=== PATIENT | male | born 1970 | race Caucasian/White ===

== ENCOUNTER 2017-06-14 20:07 | Inpatient (IN) | payer OTHER ==
[~2017-06-14] VITALS: Ht 175.3 cm; Wt 112.5 kg
[~2017-06-14 20:07] MED LIST: ALPR0.25 PO; CIAL5TAB PO; HYDR-2823 PO; IOHEXOL 350 MG/ML 100 ML BTL (for Cath Lab) OTHER ONE
[2017-06-14 20:10] VITALS: RESP 16; O2SAT 99
[2017-06-14 20:12] VITALS: BP 186/118; PULSE 103; RESP 14; TEMP 98.2; O2SAT 96
[2017-06-14 20:18] VITALS: O2SAT 100
[2017-06-14] MEDS ORDERED: HEPARIN SODIUM - IV 10,000 UNITS/10 ML VIAL IV STA (20:20)
[2017-06-14] MEDS ORDERED: NITROGLYCERIN 0.4 MG SL 25 TABS/BTL SL STA (20:20)
[2017-06-14] MEDS ORDERED: ASPIRIN 81 MG CHEW TAB PO STA (20:20)
[2017-06-14] MEDS ORDERED: SODIUM CHLOR 0.9% 1000 ML INJ 1,000 ML IV ONE (20:20)
[2017-06-14] MEDS ORDERED: NITROGLYCERIN-DEXTROSE INJ 250 ML IV SCH ×2 (20:30→22:45)
[2017-06-14] MEDS ORDERED: SODIUM CHLORIDE 0.9% FLUSH 10 ML FLUSH IVF PRN (20:30)
[2017-06-14 20:40] VITALS: BP 155/99; PULSE 111; RESP 18; O2SAT 98
[2017-06-14 20:41] LABS: AUTOMATED NEUTROPHIL # 8.6 TH/MM3 (1.8-7.7); BASOPHIL # 0.1 TH/MM3 (0-0.2); BASOPHIL % 0.8 % (0.0-2.0); EOSINOPHIL # 0.4 TH/MM3 (0-0.4); HEMATOCRIT 44.3 % (39.0-51.0); HEMO FLAGS DIFF FINAL; LYMPHOCYTE # 4.4 TH/MM3 (1.0-4.8); MEAN CELL VOLUME 91.3 FL (80.0-100.0); MEAN CORPUSCULAR HEMOGLOBIN 31.7 PG (27.0-34.0); MEAN CORPUSCULAR HGB CONC 34.7 % (32.0-36.0); MONO % 7.5 % (0.0-8.0); NEUT % 58.7 % (16.0-70.0); PLATELET COUNT 213 TH/MM3 (150-450); RED BLOOD COUNT 4.85 MIL/MM3 (4.50-5.90); RED CELL DISTRIBUTION WIDTH 12.2 % (11.6-17.2); WHITE BLOOD COUNT 14.6 TH/MM3 (4.0-11.0)
--- NOTE | 2017-06-14 20:42 | PD ---
HPI Chief Complaint: Chest Pain Time Seen by Provider: 20:20 Travel History International Travel<30 days: No Contact w/Intl Traveler<30days: No Traveled to known affect area: No History of Present Illness HPI The patient is a 46 year old male who presents to the [facility] emergency department with a history of chest pressure that he reports began 40-50 minutes prior to arrival. The patient reports that the pain feels like a gas bubble that is trapped in his chest. He reports having associated shortness of breath. He reports having an aching sensation that radiates up into the left axilla. He reports having diaphoresis. He denies having any nausea or vomiting. The patient reports that the pain is quite different from when he had a myocardial infarction in 2008. He reports that he had a single stent placed in his RCA at that time. The patient denies taking any antihypertensive medications all that he reports that he has been hypertensive for the last 2 years. He reports that this is related to having side effects to the medications. He denies taking aspirin on a daily basis. He reports that he does take aspirin when necessary back pain. He last took aspirin yesterday. The patient is unsure whether he has any history of hyperlipidemia. The patient denies taking any medications that are prescribed at all. He denies having a primary care physician. He reports that he was last seen by a acute care assistant, Dr. Joseph in the spring of 2015 and at that time had a negative stress test. The patient denies any history of fever, cough, congestion, neck pain, abdominal pain, diarrhea, urinary symptoms, or neurologic symptoms. The patient reports that he has had 4 alcoholic beverages this evening. [facility] Past Medical History Narrative Medical The patient's past medical history is significant for coronary artery disease status post myocardial infarction in 2008 with 1 stent placed, hypertension, acid reflux, anxiety disorder Anxiety: Yes Cardiac Catheterization: Yes Cardiovascular Problems: Yes Chest Pain: Yes Hypertension: Yes Myocardial Infarction: Yes (01/2009) Past Surgical History Narrative Surgical The patient's past surgical history is significant for a cardiac catheterization with stent placement, history of cholecystectomy, appendectomy. Coronary Stent: Yes Social History Alcohol Use: Yes Tobacco Use: No Substance Use: No Allergies-Medications (Allergen,Severity, Reaction): Coded Allergies: No Known Allergies (Unverified , 06/14/17) Reported Meds & Prescriptions Reported Meds & Active Scripts Active No Active Prescriptions or Reported Medications Review of Systems Except as stated in HPI: all other systems reviewed are Neg General / Constitutional: No: Fever Eyes: No: Visual changes HENT: No: Headaches Cardiovascular: Positive: Chest Pain or Discomfort, Diaphoresis, Dyspnea on exertion Respiratory: Positive: Shortness of Breath, No: Cough Gastrointestinal: No: Nausea, Vomiting, Abdominal Pain Genitourinary: No: Dysuria Musculoskeletal: No: Pain Skin: No Rash Neurologic: No: Weakness, Focal Abnormalities, Change in Mentation, Slurred Speech, Sensory Disturbance Psychiatric: No: Depression Endocrine: No: Polydipsia Hematologic/Lymphatic: No: Easy Bruising Physical Exam Narrative General: The patient is a well-developed well-nourished male in no acute distress. Head and Neck exam: Head is normocephalic atraumatic. Eyes: EOMI, pupils are equal round and reactive to light. Nose: Midline septum with pink mucous membranes Mouth: Dentition unremarkable. Moist mucus membranes. Posterior oropharynx is not erythematous. No tonsillar hypertrophy. Uvula midline. Airway patent. Neck: No palpable lymphadenopathy. No nuchal rigidity. No thyromegaly. Cardiovascular: Sinus tachycardia in the 1 teens without murmurs, gallops, or rubs. No pulse deficit to the extremities and simultaneous auscultation and palpation of his radial artery. Lungs: Clear to auscultation bilaterally. No wheezes, rhonchi, or rales. Abdomen: Soft, without tenderness to palpation in all 4 quadrants of the abdomen. No guarding, rebound, or rigidity. Normal bowel sounds are audible. No tenderness on palpation of McBurney's point. Negative Cox's sign. Extremities: No clubbing, cyanosis, or edema. 2+ pulses in all 4 extremities. No calf tenderness on palpation. Back: No costovertebral angle tenderness to palpation. Neurologic Exam: Grossly nonfocal. Skin Exam: No rash noted. Intact skin that is warm and dry. Data Data Last Documented VS Vital Signs Date Time Temp Pulse Resp B/P Pulse Ox O2 Delivery O2 Flow Rate FiO2 06/14/17 20:45 110 14 136/77 99 Nasal Cannula 2 06/14/17 20:12 98.2 Orders Troponin I (06/14/17 20:20) Ckmb (Isoenzyme) Profile (06/14/17 20:20) Complete Blood Count With Diff (06/14/17 20:20) I-Stat Profile (06/14/17 20:20) I-Stat Creatinine (06/14/17 20:20) Calcium (06/14/17 20:20) Magnesium (Mg) (06/14/17 20:20) Prothrombin Time / Inr (Pt) (06/14/17 20:20) Act Partial Throm Time (Ptt) (06/14/17 20:20) B-Type Natriuretic Peptide (06/14/17 20:20) Chest, Single Ap (06/14/17 20:20) Electrocardiogram (06/14/17 20:20) Oxygen Administration (06/14/17 20:20) Iv Access Insert/Monitor (06/14/17 20:20) Oximetry (06/14/17 20:20) Sodium Chlor 0.9% 1000 Ml Inj (Ns 1000 M (06/14/17 20:20) Sodium Chloride 0.9% Flush (Ns Flush) (06/14/17 20:30) Aspirin Chew (Aspirin Chew) (06/14/17 20:20) Nitroglycerin Sl (Nitrostat Sl) (06/14/17 20:20) Nitroglycerin-Dextrose Inj (Nitroglyceri (06/14/17 20:30) Heparin Inj (Heparin Inj) (06/14/17 20:20) Cardiac Catheterization (06/14/17 ) Admit Order (Ed Use Only) (06/14/17 21:14) Labs Laboratory Tests Test 06/14/17 20:20 White Blood Count 14.6 TH/MM3 Red Blood Count 4.85 MIL/MM3 Hemoglobin 15.4 GM/DL Bedside Hemoglobin 15.0 G/DL Hematocrit 44.3 % Bedside Hematocrit 44.0 % Mean Corpuscular Volume 91.3 FL Mean Corpuscular Hemoglobin 31.7 PG Mean Corpuscular Hemoglobin 34.7 % Concent Red Cell Distribution Width 12.2 % Platelet Count 213 TH/MM3 Mean Platelet Volume 7.8 FL Neutrophils (%) (Auto) 58.7 % Lymphocytes (%) (Auto) 30.0 % Monocytes (%) (Auto) 7.5 % Eosinophils (%) (Auto) 3.0 % Basophils (%) (Auto) 0.8 % Neutrophils # (Auto) 8.6 TH/MM3 Lymphocytes # (Auto) 4.4 TH/MM3 Monocytes # (Auto) 1.1 TH/MM3 Eosinophils # (Auto) 0.4 TH/MM3 Basophils # (Auto) 0.1 TH/MM3 CBC Comment DIFF FINAL Differential Comment Prothrombin Time 10.5 SEC Prothromb Time International 1.0 RATIO Ratio Activated Partial 25.8 SEC Thromboplast Time Bedside Sodium 142 MMOL/L Bedside Potassium 3.5 MMOL/L Bedside Chloride 103 MMOL/L Bedside Blood Urea Nitrogen 12 MG/DL Bedside Creatinine 0.9 MG/DL Bedside Glucose 116 MG/DL Calcium Level 8.5 MG/DL Magnesium Level 1.9 MG/DL Total Creatine Kinase 78 U/L Troponin I 0.06 NG/ML B-Type Natriuretic Peptide 17 PG/ML [facility] Medical Decision Making Medical Screen Exam Complete: Yes Emergency Medical Condition: Yes Medical Record Reviewed: Yes Interpretation(s) Last Impressions Chest X-Ray 06/14/172019 Signed Impressions: Service Date/Time: Wednesday, June 14, 2017 20:16 - CONCLUSION: No acute disease. Jean Claude May MD Differential Diagnosis STEMI, versus non-STEMI, versus unstable angina, versus acid reflux, versus anxiety disorder Narrative Course During the course of the patients emergency department visit, the patients history, examination, and differential diagnosis were reviewed with the patient. The patient had IV access obtained and blood work sent for analysis. The patient was placed on a media monitor with oximetry and blood pressure monitoring. An ECG done on arrival shows an inferior STEMI with reciprocal changes, ST segment depression in aVL and 1. A call was placed out to the acute care assistant on-call for the patient's acute care assistant, Dr. Jsoeph. I spoke to Dr. Castellanos at 8:25 PM. The patient's ECGs were reviewed with him. The patient had an initial ECG that showed a STEMI in the inferior leads. The patient reported that his chest pain resolved while he was in the room. A second ECG revealed some improvement in the reciprocal changes in lead 1 and aVL, continued ST segment elevation in lead 3, 2, and aVF. As I was out talking to the acute care assistant, the patient reports that the chest pressure began again. He reports that initially was a 6 out of 10 in severity, now it is a 3 out of 10 in severity. The patient was initially provided aspirin 324 mg by mouth 1, nitroglycerin sublingual times one, nitroglycerin drip was started, heparin was given per protocol. The patients laboratory studies were reviewed and remarkable for an i-STAT with creatinine that reveals a creatinine of 0.9, sodium 142, potassium 3.5, chloride 103, BUN 12, glucose 116, hemoglobin 15. Radiology studies were reviewed and remarkable for no acute cardiopulmonary abnormality. The patient will be taken to the cardiac catheterization lab for further intervention. I accompanied the patient to the cardiac catheterization lab and transferred care over to Dr. Castellanos when he arrived. The patients results were discussed with the patient, including the plan of care. I explained that further testing and/ or monitoring is indicated based on the patients history, examination, and/ or laboratory findings. Therefore, I recommended admission for additional evaluation. The patient expressed understanding and was agreeable with this plan. The patient was admitted to the hospital in guarded condition and sent to a bed under the care of the acute care assistant. Critical Care Narrative Aggregate critical care time was 35 minutes. Time to perform other separately billable procedures was not included in the critical care time. My time did not include minutes spent treating any other patients simultaneously or on activities that did not directly contribute to the patient's treatment. The services I provided to this patient were to treat and/or prevent clinically significant deterioration that could result in: Cardiopulmonary arrest, cardiac arrhythmia, respiratory failure I provided critical care services requiring my management, as noted below: Chart data review, documentation time, medication orders and management, vital sign assessments/reviewing monitor data, ordering and reviewing lab tests, ordering and interpreting/reviewing x-rays and diagnostic studies, care of the patient and discussion of the patient with the admitting physicians. Diagnosis Primary Impression: STEMI (ST elevation myocardial infarction) Qualified Code: I21.3 - ST elevation myocardial infarction (STEMI), unspecified artery Admitting Information Admitting Physician Requests: Admit Scripts No Active Prescriptions or Reported Meds Raquel King MD Jun 14, 2017 20:42
--- NOTE | 2017-06-14 20:43 | RADRPT ---
EXAM DATE/TIME: 06/14/2017 20:16 [place] COMPARISON: No previous studies available for comparison. INDICATIONS : Stemi alert. MEDICAL HISTORY : None. SURGICAL HISTORY : None. ENCOUNTER: Initial ACUITY: 1 day PAIN SCORE: Non-responsive. LOCATION: Bilateral chest FINDINGS: A single view of the chest demonstrates the lungs to be symmetrically aerated without evidence of mas s, infiltrate or effusion. The cardiomediastinal contours are unremarkable. Osseous structures are intact. CONCLUSION: No acute disease. Jean Claude May MD on June 14, 2017 at 20:41 Board Certified Radiologist. This report was verified electronically.
[2017-06-14 20:45] VITALS: BP 136/77; PULSE 110; RESP 14; O2SAT 99
[2017-06-14 20:51] LABS: I-STAT POTASSIUM 3.5 MMOL/L (3.5-4.9)
[2017-06-14 20:54] LABS: APTT (PATIENT) 25.8 SEC (24.3-30.1); PROTHROMBIN TIME - PATIENT 10.5 SEC (9.8-11.6)
[2017-06-14 21:36] LABS: MAGNESIUM 1.9 MG/DL (1.5-2.5)
--- NOTE | 2017-06-14 22:40 | CATHPROC ---
BOLD [facility]ance HIS Report Study Information Study Number Admission Scheduled Start Study Start [id number] Jun 14 2017 8:07PM 06/14/2017 Jun 14 2017 8:54PM [place] Service Cardiac Catheterization Admit Source Facility Department Emergency department [facility] - Physiotherapist'S Assistant Physician and Clinical Staff Initial Moreno Levy Type Soldering Machine Tenderjama Perez RN, Colton Type Soldering Machine TenderGay Guerrier,INTERCELL CONNECTOR PLACER TECH2 Recorder Maicol Almaraz,RODNEY(BS) Scrub Kenneth Guy,RT(R) X-Ray cathlab, cathlab Procedures Performed Procedure Location (Site) Vessel Name Coronary Angiograms LCA Left Coronary Coronary Angiograms RCA Right Coronary IVUS LEFT MAIN ARTERY-(11 Left Coronary Wire insertion Fem Art (right) Femoral Art Equipment Time Carton Wrapper Description Size Mfg Part Number Used/Scraped [id number] 21:25 [employer] WIRE, ASAHI PROWATER 180CM 180CM Used *[id number] WIRE, BALANCE MIDDLEWEIGHT [id number] 21:25 [employer] 190CM Used 190CM *[id number] TRANSDUCER, TRUWAVE [id number] 21:11 [employer]EN SPRINGER * Used W/STOCKCOCK *[id number]-502-10.0- INTRODUCER SET, 21:14 [employer] FR 5 SC-NT-U-SST Used MICROPUNCTURE, STIFFENED *[id number] 534-520T *[id number] [id number] *[id number] 534-617T *[id number] 534-622T *[id number] 670-082-00 *[id number] 534-521T *[id number] PIGTAIL ANG. 145 INFINITI 534-652S CATHETER *[id number] 21:11 [employer] PACK, CCL CUSTOM * Used *[id number] 21:11 [employer] PACER PEN, SKIN DUAL W/ RULER * Used *[id number] 21:38 [employer] 30 WILL INDEFLATOR Used *[id number] PSI-6F-11- 21:16 [employer] SHEATH, FR6.5 PRELUDE 11CM FR 6.5 038ACT Used *[id number] 21:11 [employer] WIRE, 3MMJ .035 180CM 180CM Used *[id number] PROBE COVER, STERILE [id number] 21:11 [employer] * Used ULTRASOUND W/ GEL *[id number] 21:11 NAMIC MANIFOLD, 4 PORT * Used *[id number] 21:11 NAMIC TUBING, HIGH PRESSURE 48" 48" Used *[id number] 21:11 [employer] OMNIPAQUE, 350 MG, 150ML 150ML [id number] Used [id number] 21:11 [employer] BLANKET,WARM AIR CCL * Used *[id number] 21:11 [employer] SHEATH, FR5 TERUMO (10CM) FR 5 [id number] Used CATHETER, [employer]AH [employer] [place] [id number] 21:38 [employer] Used IMAGING *[id number] Equipment Model, Serial, Lot Number and Expiration Data Description Model Number Serial Number Lot Number Expiration Date CATHETER, RAMAH [employer] [place] [id number] 02-26-2019 IMAGING SHEATH, FR6.5 PRELUDE 11CM [id number] 04-28-2020 History: Allergies Allergy Reaction No Known Allergies History: Risk Factors Family History of Hypertension Dyslipidemia Previous ID Previous Heart Failure Premature CAD Yes Yes No Yes No Prior Valve Prior PCI Prior PCIDate Prior CABG Surgery No Yes 01/27/2009 No Cerebrovascular Peripheral Artery Chronic Lung On Dialysis Diabetes Disease Disease Disease No No No No No History: Symptoms/Diagnosis Selection Items Chest pain History: Stress Tests Stress or Imaging Studies Performed No History: Other Disease Selection Items CAD HTN History: ID/CV Data Previous Cath Date 01/27/2009 History: Other Current Smoker No Labs Hgb (g/dl) Hct (%) WBC (l/cumm) Platelets (thousands) 11.60-17.00 35.00-51.00 4.00-11.00 150.00-450.00 15.4 44.3 14.6 213 Creatinine (mg/dl) 0.50-1.30 Not Drawn CPK-MB (ng/ML) 0.50-3.60 Not Drawn Medication Medication Total Dose (Bolus/Oral) Medication Total Dosage/Unit 1% XYLOCAINE 20 mL HEPARIN 6000 units Medications (Bolus/Oral) Medication Time Given Dosage/Unit Administered By Reason 1% XYLOCAINE 06/14/2017 9:12:56 PM 20 mL Moreno Castellanos 20 mL 1% XYLOCAINE given in lab by Moreno Castellanos in Right Groin via Subcutaneous. HEPARIN 06/14/2017 9:27:02 PM 6000 units Colton Perez RN 6000 units HEPARIN given in lab by Colton Perez RN in Left Antecubital via Peripheral IV. Medication (Drip) Medication Time Given Dosage/Unit Concentration/Unit Diluent (ml) Solution NITROGLYCERIN DRIP 06/14/2017 8:57:29 PM 10 mcg/min 50 mg 250 D5W Patient arrived on 10 mcg/min NITROGLYCERIN DRIP given by beatrice barron in Left Antecubital via Pe ripheral IV. Pump/Drip Flow = 3 ml/hr using D5W with a concentration of 50 mg in 250 ml. Ordered by Moreno Castellanos. NITROGLYCERIN DRIP 06/14/2017 10:11:31 PM 33.333 mcg/min 50 mg 250 D5W 33.333 mcg/min NITROGLYCERIN DRIP given in lab by Colton Perez RN in Left Antecubital via Peripheral IV. Pump/Drip Flow = 10 ml/hr using D5W with a concentration of 50 mg in 250 ml. Ordered by Moreno Castellanos. Initial Case Assessment Cardiovascular HR Rhythm NIBP Chest Pain 105 stach 129/99 0 Edema Present Skin color Skin None Normal Warm Dry Circulatory - Right Pulses Dorsalis Pedis Femoral 3 3 Scale (0,1,2,3,4,d) Circulatory - Left Pulses Dorsalis Pedis Femoral 3 3 Scale (0,1,2,3,4,d) Neurological State Oriented to time-place- Alert Moves all extremities person Respiration - General Respiration Rate SpO2 (%) O2 (lpm) (B/min) 12 99 2 Final Case Assessment Cardiovascular HR Rhythm NIBP Chest Pain 103 stach 150/88 0 Edema Present Skin color Skin None Normal Warm Dry Circulatory - Right Pulses Dorsalis Pedis Femoral 3 3 Scale (0,1,2,3,4,d) Circulatory - Left Pulses Dorsalis Pedis Femoral 3 3 Scale (0,1,2,3,4,d) Neurological State Oriented to time-place- Alert Moves all extremities person Respiration - General Respiration Rate SpO2 (%) O2 (lpm) (B/min) 12 99 2 Chronological Log Time Study Chronological Log 20:54:08 Emergency Room notified that Physiotherapist'S Assistant is ready. 20:57:17 Patient arrived via Bed. 20:57:17 Patient Name, D.O.B, / Armband Verified By R.N. 20:57:18 Consent signed by the physician and the patient and verified by the Physiotherapist'S Assistant staff. 20:57:19 Pre-op and post- op instructions given; patient acknowledges understanding of instructions. 20:57:19 Verbal Stimulation=2 Physical Stimulation=2 Airway=2 Respiration=2 TOTAL=8. (0=absent, 1=li mited, 2=present) 20:57:20 Presedation assessment performed by Physiotherapist'S Assistant RN. 20:57:20 Immediate Presedation assesment performed by physician. 20:57:21 Patient has been NPO for More than 6Hrs. 20:57:21 Skin Breakdown- none per patient 20:57:22 Patient Warmer Placed on the Table. 20:57:25 Disposable Defibrillator Pads Placed On Patient. 20:57:26 Praful Prominences Protected 20:57:26 A # 18 IV was noted in the Antecubital (right). Grade = 0 20:57:28 A # 20 IV was noted in the Antecubital (left). Grade = 0 Patient arrived on 10 mcg/min NITROGLYCERIN DRIP given by beatrice barron in Left Antecubital via Peripheral IV. 20:57:29 Pump/Drip Flow = 3 ml/hr using D5W with a concentration of 50 mg in 250 ml. Ordered by Moreno Castellanos. 20:57:29 History and physical on the chart or being dictated. Vitals capture started with the following parameters, Patient=Adult, Interval=5 min, Initial Pr gjgwjy=965 mmHg, 21:03:10 Deflation Rate=5 mmHg 21:03:27 Reference ECG taken 21:03:44 YP=348 bpm, NZHX=975/99 mmhg, SpO2=99 %, Resp=16 B/min, Pain=0, Sharee=10, Lainez=2 Assessment: Initial Case, ER=916 BPM, Rhythm=stach, KSKJ=849/99 mmhg, Chest Pain=0, Edema=None, Color=Normal, Skin = Warm, Dry Right Pulses: Rodrigo Ped=3, Femoral=3 21:05:42 Left Pulses: Rodrigo Ped=3, Femoral=3 Neurological: State=Alert, Ox3, ARREDONDO Respiration: Resp=12 B/min, SpO2=99 %, O2=2 lpm 21:06:30 Bilateral groins prepped with 2% chlorhexidine, and with a 3 min. waiting time. 21:09:18 OQ=477 bpm, JTHO=010/89 mmhg, SpO2=92.0 %, Resp=15 B/min, Pain=0, Sharee=10, Lainez=2 21:09:47 Pressure channel 1 zeroed. 21:10:17 MD arrived. 21:10:49 Contrast Scanned 21:10:50 Immediate Presedation assesment performed by physician. Time Out. Correct patient, correct procedure,correct physician, ,power injector not loaded with contrast with surgical 21:11:57 team present. Time Out Concurred by , individual staff in procedure 21:12:22 Case Start 21:12:56 20 mL 1% XYLOCAINE given in lab by Moreno Castellanos in Right Groin via Subcutaneous. 21:13:46 DG=104 bpm, IRFV=129/91 mmhg, SpO2=98.0 %, Resp=16 B/min, Pain=0, Sharee=10, Lainez=2 21:15:43 Access site was Right Femoral Artery. A INTRODUCER SET, MICROPUNCTURE, STIFFENED FR 5 was advanced into the Fem Art (right) using the 21:15:48 Percutaneous technique. A SHEATH, FR6.5 PRELUDE 11CM FR 6.5 was exchanged in the Fem Art (right). This was necessary in order to 21:15:53 accomodate a larger catheter. 21:17:34 An injection in the Fem Art (right) was made through the SHEATH, FR6.5 PRELUDE 11CM FR 6.5. A JL 4.0 INFINITI CATHETER FR 5 was advanced over a wire. OMNIPAQUE, 350 MG, 150ML 150ML was us ed for 21:18:02 injections. 21:18:51 AX=711 bpm, BRAR=420/86 mmhg, SpO2=96.0 %, Resp=18 B/min, Pain=0, Sharee=10, Lainez=2 Recorded Pressure: Ao, OO=767, Condition=Condition 1 21:19:15 (Aorta) Ao 132/88/109 21:20:09 The LCA was injected and visualized at various angles. OMNIPAQUE, 350 MG, 150ML 150ML used . After removing the current catheter a JR 4.0 GUIDE CATHETER FR 6 was advanced over a WIRE, 3MMJ .035 180CM 21:21:58 180CM. 21:23:50 JM=489 bpm, LRYV=477/84 mmhg, SpO2=98.0 %, Resp=17 B/min 21:23:51 The RCA was injected and visualized at various angles. OMNIPAQUE, 350 MG, 150ML 150ML used . 21:27:02 6000 units HEPARIN given in lab by Colton Perez RN in Left Antecubital via Peripheral IV. After removing the current catheter a JL 5.0 INFINITI CATHETER FR 6 was advanced over a WIRE, 3 MMJ .035 180CM 21:28:41 180CM. 21:29:14 YF=350 bpm, ZXSQ=218/87 mmhg, SpO2=98.0 %, Resp=18 B/min, Pain=0, Sharee=10, Lainez=2 After removing the current catheter a JL 4.5 INFINITI CATHETER FR 6 was advanced over a WIRE, 3 MMJ .035 180CM 21:31:36 180CM. 21:33:46 CZ=956 bpm, PIWV=811/93 mmhg, SpO2=98.0 %, Resp=16 B/min, Pain=0, Sharee=10, Lainez=2 21:35:15 The LCA was injected and visualized at various angles. OMNIPAQUE, 350 MG, 150ML 150ML used . After removing the current catheter a JL 4.5 GUIDE CATHETER FR 6 was advanced over a WIRE, 3MMJ .035 180CM 21:36:36 180CM. 21:38:47 GK=825 bpm, ECMG=292/99 mmhg, SpO2=97.0 %, Resp=14 B/min, Pain=0, Sharee=10, Lainez=2 21:40:27 A WIRE, BALANCE MIDDLEWEIGHT 190CM 190CM was inserted via Fem Art (right). 21:41:13 Interventional wire has crossed the lesion 21:43:48 VL=784 bpm, GIOE=610/84 mmhg, SpO2=97.0 %, Resp=11 B/min, Pain=0, Sharee=10, Lainez=2 21:43:56 An CATHETER, [employer] [place] [employer]AG[employer] was advanced through the lesion. Images saved on to IVUS hard drive 21:45:47 IVUS in progress using CATHETER, RAMAH [employer] [place] IMAGING 21:48:45 ER=041 bpm, ITEB=223/91 mmhg, SpO2=95.0 %, Resp=17 B/min, Pain=0, Sharee=10, Lainez=2 21:53:53 ZV=566 bpm, SCAI=242/78 mmhg, SpO2=97.0 %, Resp=12 B/min, Pain=0, Sharee=10, Lainez=2 21:58:10 IVUS catheter removed 21:58:33 Activated Clotting Time Drawn 21:58:48 LQ=590 bpm, AFCW=260/94 mmhg, SpO2=97.0 %, Resp=20 B/min, Pain=0, Sharee=10, Lainez=2 21:59:20 Wire removed After removing the current catheter a PIGTAIL ANG. 145 INFINITI CATHETER FR 6 was advanced over a WIRE, 3MMJ 22:00:47 .035 180CM 180CM. 22:02:50 ACT (Normal Range 90-180) = 285 Recorded Pressure: LV, IT=964, Condition=Condition 1 22:02:56 (Left Ventricle) LV 129/1/6 Recorded Pressure: LV, Ao, VI=048, Condition=Condition 1 22:03:27 (Left Ventricle) LV 129/0/6, (Aorta) Ao 129/86/107 22:03:51 VY=387 bpm, GNNX=080/88 mmhg, SpO2=97.0 %, Resp=20 B/min, Pain=0, Sharee=10, Lainez=2 22:05:31 Catheter was removed 22:09:18 UR=351 bpm, LUYA=121/106 mmhg, SpO2=96.0 %, Resp=13 B/min, Pain=0, Sharee=10, Lainez=2 22:10:22 Dr. Castellanos discussing IABP with patient. Patient refuses IABP placement. 22:11:21 Activated Clotting Time Drawn 33.333 mcg/min NITROGLYCERIN DRIP given in lab by Colton Perez RN in Left Antecubital via Perip heral IV. Pump/Drip 22:11:31 Flow = 10 ml/hr using D5W with a concentration of 50 mg in 250 ml. Ordered by Moreno Castellanos . 22:13:49 Case End 22:13:53 YS=790 bpm, GCCY=323/88 mmhg, Resp=12 B/min 22:13:55 In the Fem Art (right) the SHEATH, FR6.5 PRELUDE 11CM FR 6.[address] by Kenneth Guan RT(R). Assessment: Final Case, IT=506 BPM, Rhythm=stach, RCRH=479/88 mmhg, Chest Pain=0, Edema=None, Color=Normal, Skin = Warm, Dry Right Pulses: Rodrigo Ped=3, Femoral=3 22:14:07 Left Pulses: Rodrigo Ped=3, Femoral=3 Neurological: State=Alert, Ox3, ARREDONDO Respiration: Resp=12 B/min, SpO2=99 %, O2=2 lpm 22:14:24 Sterile dressing applied to site 22:14:25 No case complications noted. :: Cine recording checked. 22:14:29 Bedside Report will be given. 22:14:38 Contrast Scanned 22:19:23 WP=049 bpm, MBJI=361/91 mmhg, SpO2=94.0 %, Resp=8 B/min, Pain=0, Sharee=10, Lainez=2 22:23:51 PI=365 bpm, FPCA=735/89 mmhg, SpO2=97.0 %, Resp=10 B/min, Pain=0, Sharee=10, Lainez=2 22:27:33 Vitals capture stopped. 22:27:34 [facility] moved to [facility] End Study - Contrast Media Used In Study Contrast Total Opened (mL) Total Used (mL) Total Wasted (mL) Omnipaque 100 100 0 End Study - Radiation Exposure Fluoro Time (minutes) 13.1 End Study - Patient Disposition Complications Transferred To Interventional Outcome No Critical Care Bed No attempt made
[2017-06-14] MEDS ORDERED: oxyCODONE/ACETAMINOPHEN 5 MG/325 MG TAB PO PRN (22:45)
[2017-06-14] MEDS ORDERED: ACETAMINOPHEN 325 MG TAB PO PRN (22:45)
[2017-06-14] MEDS ORDERED: ONDANSETRON HCL 4 MG/2 ML VIAL IV PRN (22:45)
[2017-06-14] MEDS ORDERED: oxyCODONE/ACETAMINOPHEN 10 MG/325 MG TAB PO PRN (22:45)
[2017-06-14 23:00] VITALS: PULSE 105
[2017-06-14] MEDS ORDERED: HEPARIN-D5W INJ 250 ML IV SCH (23:00)
--- NOTE | 2017-06-14 23:40 | PD.CONS ---
[facility] Service Critical Care Medicine Consult Requested By Primary Care Physician No Primary Care Physician History of Present Illness 46 year old male presents with a history of chest pressure that he reports began 40-50 minutes prior to arrival. He reports having associated shortness of breath. He reports having an aching sensation that radiates up into the left axilla. And he also reports having diaphoresis. He denies having any nausea or vomiting. He has had a single stent placed in his RCA at 2008. He was emergently taken to cardiac catheter lab, where he was found to have a left main disease as well as multiple lesions of the RCA, Dr. Woods offered IABP however patient refused. Patient agreed to undergo CABG procedure this week. Review of Systems Constitutional: COMPLAINS OF: Diaphoretic episodes, DENIES: Fatigue, Fever, Weight gain, Weight loss, Chills, Dizziness, Change in appetite, Night Sweats Endocrine: DENIES: Heat/cold intolerance, Polydipsia, Polyuria, Polyphagia Eyes: DENIES: Blurred vision, Diplopia, Eye inflammation, Eye pain, Vision loss , Photosensitivity, Double Vision Ears, nose, mouth, throat: DENIES: Tinnitus, Hearing loss, Vertigo, Nasal discharge, Oral lesions, Throat pain, Hoarseness, Ear Pain, Running Nose, Epistaxis, Sinus Pain, Toothache, Odynophagia Respiratory: COMPLAINS OF: Shortness of breath, DENIES: Apneas, Cough, Snoring , Wheezing, Hemoptysis, Sputum production Cardiovascular: COMPLAINS OF: Chest pain, DENIES: Palpitations, Syncope, Dyspnea on Exertion, PND, Lower Extremity Edema, Orthopnea, Claudication Gastrointestinal: DENIES: Abdominal pain, Black stools, Bloody stools, Constipation, Diarrhea, Nausea, Vomiting, Difficulty Swallowing, Anorexia Genitourinary: DENIES: Sexual dysfunction, Urinary frequency, Urinary incontinence, Urgency, Hematuria, Dysuria, Nocturia, Penile Discharge, Testicular Pain, Testicular Swelling Musculoskeletal: DENIES: Joint pain, Muscle aches, Stiffness, Joint Swelling, Back pain, Neck pain Integumentary: DENIES: Abnormal pigmentation, Nail changes, Pruritus, Rash Hematologic/lymphatic: DENIES: Bruising, Lymphadenopathy Immunologic/allergic: DENIES: Eczema, Urticaria Neurologic: DENIES: Abnormal gait, Headache, Localized weakness, Paresthesias, Seizures, Speech Problems, Tremor, Poor Balance Psychiatric: DENIES: Anxiety, Confusion, Mood changes, Depression, Hallucinations, Agitation, Suicidal Ideation, Homicidal Ideation, Delusions ROS Coronary artery disease status post myocardial infarction in 2008 with 1 stent placed, Hypertension, Gastroesophageal acid reflux disease, Anxiety disorder Past Family Social History Allergies: Coded Allergies: No Known Allergies (Unverified , 06/14/17) Past Medical History Coronary artery disease status post myocardial infarction in 2008 with 1 stent placed in RCA Hypertension Gastroesophageal reflux disease Anxiety disorder Past Surgical History Coronary stent placement in 2008 Reported Medications Reported Meds & Active Scripts Active No Active Prescriptions or Reported Medications Active Ordered Medications Current Medications Medications (Trade) Dose Ordered Sig/Josefina Route PRN Reason Start Time Stop Time Status Last Admin Dose Admin Sodium Chloride 2 ml 2 ml UNSCH PRN IVF FLUSH AFTER USING IV ACCESS 06/14/17 20:30 Nitroglycerin/ Dextrose (Nitroglycerin-Dextrose Inj) 250 ml @ 0 mls/hr TITRATE IV 06/14/17 20:30 06/14/17 20:37 Acetaminophen (Tylenol) 325 mg Q4H PRN PO PAIN SCALE 1 TO 2 06/14/17 22:45 Oxycodone/ Acetaminophen (Percocet 5-325 Mg) 1 tab Q4H PRN PO PAIN SCALE 3 TO 5 06/14/17 22:45 Oxycodone/ Acetaminophen (Percocet 10-325 Mg) 1 tab Q4H PRN PO PAIN SCALE 6 TO 10 06/14/17 22:45 Aspirin 81 mg 81 mg DAILY PO 06/15/17 09:00 Nitroglycerin/ Dextrose (Nitroglycerin-Dextrose Inj) 250 ml @ 0 mls/hr TITRATE IV 06/14/17 22:45 Ondansetron HCl (Zofran Inj) 4 mg Q4H PRN IV NAUSEA 06/14/17 22:45 Metoprolol Tartrate (Lopressor) 12.5 mg BID PO 06/15/17 09:00 Heparin Sodium (Porcine) (Heparin Inj) 5,000 units UNSCH PRN IV APTT LESS THAN 25 06/15/17 05:00 Heparin Sodium (Porcine) 2500 units 2,500 units UNSCH PRN IV APTT 25 TO 39 06/15/17 05:00 Heparin Sodium/ Dextrose (Heparin-D5W Inj) 250 ml @ 0 mls/hr TITRATE IV 06/14/17 23:00 06/14/17 23:56 Atorvastatin Calcium (Lipitor) 80 mg HS PO 06/15/17 21:00 Alprazolam (Xanax) 0.5 mg Q6H PRN PO anxiety 06/14/17 23:45 06/15/17 00:08 Family History No family history of early cancer Social History He drinks alcohol socially He denies illicit drug or tobacco abuse Physical Exam Vital Signs Vital Signs Date Time Temp Pulse Resp B/P Pulse Ox O2 Delivery O2 Flow Rate FiO2 06/14/17 20:45 110 14 136/77 99 Nasal Cannula 2 06/14/17 20:40 111 18 155/99 98 Nasal Cannula 2 06/14/17 20:18 100 Nasal Cannula 2.00 06/14/17 20:18 100 2.00 06/14/17 20:12 98.2 103 14 186/118 96 06/14/17 20:10 99 Nasal Cannula 2 06/14/17 20:10 16 99 Nasal Cannula 2 06/14/17 20:10 99 Nasal Cannula 2 Physical Exam GENERAL: Well-nourished, well-developed patient. SKIN: Warm and dry. HEAD: Normocephalic. EYES: No scleral icterus. No injection or drainage. NECK: Supple, trachea midline. No JVD or lymphadenopathy. CARDIOVASCULAR: Regular rate and rhythm without murmurs, gallops, or rubs. RESPIRATORY: Breath sounds equal bilaterally. No accessory muscle use. GASTROINTESTINAL: Abdomen soft, non-tender, nondistended. MUSCULOSKELETAL: No cyanosis, or edema. BACK: Nontender without obvious deformity. No CVA tenderness. EXTREMITIES: No clubbing cyanosis or edema Laboratory Laboratory Tests Test 06/14/17 20:20 White Blood Count 14.6 Red Blood Count 4.85 Hemoglobin 15.4 Bedside Hemoglobin 15.0 Hematocrit 44.3 Bedside Hematocrit 44.0 Mean Corpuscular Volume 91.3 Mean Corpuscular Hemoglobin 31.7 Mean Corpuscular Hemoglobin 34.7 Concent Red Cell Distribution Width 12.2 Platelet Count 213 Mean Platelet Volume 7.8 Neutrophils (%) (Auto) 58.7 Lymphocytes (%) (Auto) 30.0 Monocytes (%) (Auto) 7.5 Eosinophils (%) (Auto) 3.0 Basophils (%) (Auto) 0.8 Neutrophils # (Auto) 8.6 Lymphocytes # (Auto) 4.4 Monocytes # (Auto) 1.1 Eosinophils # (Auto) 0.4 Basophils # (Auto) 0.1 CBC Comment DIFF FINAL Differential Comment Prothrombin Time 10.5 Prothromb Time International 1.0 Ratio Activated Partial 25.8 Thromboplast Time Bedside Sodium 142 Bedside Potassium 3.5 Bedside Chloride 103 Bedside Blood Urea Nitrogen 12 Bedside Creatinine 0.9 Bedside Glucose 116 Calcium Level 8.5 Magnesium Level 1.9 Total Creatine Kinase 78 Troponin I 0.06 B-Type Natriuretic Peptide 17 Result Diagram: 06/14/172019 Imaging Last 24 hours Impressions Chest X-Ray 06/14/172019 Signed Impressions: Service Date/Time: Wednesday, June 14, 2017 20:16 - CONCLUSION: No acute disease. Jean Claude May MD Assessment and Plan Assessment and Plan STEMI - Status post emergent cardiac Catheterization - Nitroglycerin drip - Aspirin - Atorvastatin - Metoprolol - Heparin drip - CABG this week - Management per Dr. Woods - cardiology Anxiety disorder - Xanax when necessary per home regimen DVT GI prophylaxis - Heparin drip, Pepcid - Teds and SCDs Critical Care: The total critical care time was 35 minutes. Time to perform other separately billable procedures was not included in the critical care time. Dev Arroyo MD Jun 14, 2017 23:40
[2017-06-14] MEDS ORDERED: ALPRAZolam 0.25 MG TAB PO PRN (23:45)
[2017-06-15] VITALS (13 sets, daily range): BP systolic 120–162; BP diastolic 59–98; PULSE 70–102; RESP 18–23; TEMP 97.7–98.6; O2SAT 95–100
[2017-06-15] MEDS: ALPRAZolam 0.5 MG TAB PO PRN ×2 (00:08→22:47)
[2017-06-15] MEDS ORDERED: HEPARIN SODIUM - IV 10,000 UNITS/10 ML VIAL IV PRN ×2 (05:00)
[2017-06-15 06:31] LABS: AUTOMATED NEUTROPHIL # 5.5 TH/MM3 (1.8-7.7); BASOPHIL # 0.1 TH/MM3 (0-0.2); BASOPHIL % 0.6 % (0.0-2.0); EOSINOPHIL # 0.3 TH/MM3 (0-0.4); EOSINOPHIL % 3.3 % (0.0-4.0); HEMATOCRIT 38.8 % (39.0-51.0); HEMO FLAGS DIFF FINAL; LYMPH % 29.6 % (9.0-44.0); LYMPHOCYTE # 2.7 TH/MM3 (1.0-4.8); MEAN CELL VOLUME 90.6 FL (80.0-100.0); MEAN CORPUSCULAR HEMOGLOBIN 32.2 PG (27.0-34.0); MEAN CORPUSCULAR HGB CONC 35.6 % (32.0-36.0); MONO % 6.3 % (0.0-8.0); NEUT % 60.2 % (16.0-70.0); PLATELET COUNT 166 TH/MM3 (150-450); RED BLOOD COUNT 4.28 MIL/MM3 (4.50-5.90); RED CELL DISTRIBUTION WIDTH 12.7 % (11.6-17.2); WHITE BLOOD COUNT 9.1 TH/MM3 (4.0-11.0)
[2017-06-15 07:01] LABS: BICARBONATE 27.2 MEQ/L (21.0-32.0); POTASSIUM 3.8 MEQ/L (3.5-5.1)
--- NOTE | 2017-06-15 07:59 | MH ---
cc: MORENO BRYAN DO DATE OF ADMISSION: 06/14/2017 REASON FOR ADMISSION STEMI Alert. HISTORY OF PRESENT ILLNESS Vazquez Duvall is a pleasant 46-year-old male who presented to [facility] Emergency Room with a history of chest pain beginning 40-50 minutes prior to arrival on June 14, 2017. He states that he was shooting pool and having a few drinks and he started feeling a gas bubble that felt trapped in his chest. He started getting somewhat short of breath with this. The pain was an aching sensation under his left axilla. He was also mildly diaphoretic with this. He denies nausea or vomiting. The patient previously had a myocardial infarction in 2008 and states that this pain is definitely different as then he had significant chest pain. Per the patient, he has a history of hypertension and coronary artery disease but states that he does not take any medications at this time. He was recently seen by my partner, Dr. Rodriguez, and underwent stress testing in 2016 which was negative. PAST MEDICAL HISTORY 1. Coronary artery disease with myocardial infarction (2008). 2. Hypertension. 3. Gastroesophageal reflux disease. 4. Anxiety. 5. Hypertension. PAST SURGICAL HISTORY 1. Cardiac catheterization (2008) with unknown coronary anatomy as no report is available at this hospital. 2. Cholecystectomy. 3. Appendectomy. ALLERGIES No known drug allergies. MEDICATIONS Denies. FAMILY HISTORY Denies premature coronary artery disease or sudden cardiac within the family. SOCIAL HISTORY The patient admits to drinking socially. He had four drinks tonight before arriving to the emergency room. He denies tobacco or drug abuse. REVIEW OF SYSTEMS 14-systems were reviewed including osteopathic pertinent positives and negatives above, otherwise negative. PHYSICAL EXAMINATION VITAL SIGNS: Temperature 98.2, heart rate 100, blood pressure 186/118, respirations 16, pulse ox 99% on 2 liters. IN GENERAL: The patient appears well, in no acute distress, alert, awake and oriented x 3. HEENT: Extraocular muscles intact. Mucous membranes moist. NECK: Supple. No JVD at 45 degrees. No carotid bruits heard bilaterally. Carotid upstroke is brisk in nature. HEART: Regular rhythm. Mildly tachycardiac. No murmurs, gallops or rubs are noted. LUNGS: Clear to auscultation bilaterally. No wheezes, rales or rhonchi. ABDOMEN: Soft, nontender, nondistended. No organomegaly noted. EXTREMITIES: No clubbing, cyanosis or edema. Femoral and distal pulses intact bilaterally. NEUROLOGICALLY: No focal deficits. SKIN: Warm, dry and intact. OSTEOPATHICALLY: Mild lordosis. No kyphoscoliosis or paraspinal tender points. LABORATORY FINDINGS Hemoglobin 15.4, hematocrit 44.3, platelets 213. Potassium 3.5, BUN 12, creatinine 0.9. Troponin 0.06. BNP 17. ELECTROCARDIOGRAM (June 14, 2017 at the 20:14) sinus tachycardia, ST elevations inferiorly with Q-waves consistent with infarction. ELECTROCARDIOGRAM (June 14, 2017 at 2021) Sinus tachycardia, mild ST elevations inferiorly with Q-waves. Compared to previous tracing, ST elevations have decreased back towards baseline. IMPRESSION 1. Acute inferior STEMI. 2. History of coronary artery disease with myocardial infarction (2008). 3. History of hypertension. 4. History of anxiety. RECOMMENDATIONS 1. Mr. Duvall is presenting with EKG changes consistent with an acute inferior ST-elevation myocardial infarction. Repeat EKG shows a decrease in the amount of ST elevation and the patient's chest pain has since decreased. 2. As he still is having some chest pain, he will be taken to the cathode maker for coronary visualization. 3. Further recommendations will be made after coronary visualization. Thank you for allowing me to see Vazquez Duvall. If there are any questions, please do not hesitate to call. Moreno Bryan DO VGP/SSB /11:12 PM /7:48 AM [facility]
[2017-06-15] MEDS: ASPIRIN 81 MG CHEW TAB PO SCH (08:15)
[2017-06-15] MEDS: METOPROLOL TARTRATE 25 MG TAB PO SCH ×2 (08:15→21:22)
--- NOTE | 2017-06-15 08:51 | MA ---
cc: MORENO BRYAN DO DATE OF PROCEDURE June 14, 2017 PROCEDURE Left heart catheterization, coronary angiogram, IVUS left main (4.1 mm2). PREPROCEDURE DIAGNOSES Acute anterior STEMI. Chest pain consistent with coronary insufficiency. POSTPROCEDURE DIAGNOSIS Multivessel coronary artery disease with left main disease. MEDICATIONS Heparin 6000 units. CONTRAST USED 100 cc. Fluoroscopy 13.1 minutes. PROCEDURAL SUMMARY Vazquez Duvall is a pleasant 46-year-old male who presented to [facility] Emergency Room due to pain under his armpit. He was out playing pool and drinking at the time and had around four drinks and started noticing the pain. It is different than his previous myocardial infarction in 2008. On arrival he was found to have elevations in his ST segments in the inferior leads. The chest pain started to go away, from a 6/10 to a 2/10 and repeat EKG still showed mild ST elevations in the inferior leads, although they had decreased immensely. It was felt that because of this he should undergo cardiac catheterization. On my arrival to the [employer] [facility], the patient states that he is chest pain-free on a heparin drip and nitro drip but I felt we still should define his coronary anatomy. The risks, benefits and alternatives were explained to him and he consents as such. He was prepped in the usual sterile fashion. The right femoral artery was accessed using a modified Seldinger technique and placement of a 6-Cymraes sheath. This was easily aspirated and flushed. A JL-4 catheter was advanced over a J-wire to the ascending aorta but was too small for selective angiography of the left coronary system. At this time the JL-4 was exchanged for a JR-4 guide which was used for selective angiography of the right coronary system. At this time it appears that all vessels contained within the right coronary were patent. As he does have significant RCA disease and recently had a stress test which was negative in January, there was concern for multivessel disease. As the patient was chest pain-free, I felt that it was prudent to define his left coronary anatomy to make sure that he did not have multivessel disease and consideration of coronary artery bypass grafting. A JR-4 guide was exchanged for a JL-5 catheter. The JL-5 catheter was unable to be placed into the left main without causing significant dampening and ventricularization of pressures. The JL-5 was then exchanged for a JL-4.5 which was more coaxial with the left main without adelina the catheter into the vessel but there was still dampening. I was able to remove the catheter from the ostium of the vessel and still get adequate shots. There was concern for significant left main disease and so I felt that this should be assessed via IVUS. The patient was given heparin as an additional an anticoagulant. A JL-4.5 catheter was exchanged for a JL-4.5 guide. A BMW wire was advanced into the distal LAD. IVUS catheter was advanced and upon pullback recordings were taken. The IVUS catheter was made sure to pull back into the aorta and then slightly into the left main to make sure that we had ostial measurements. In reviewing this, the ostium of the left main measures out to be an area of 4.1 mm2 which is consistent with significant left main disease. IVUS catheter and BMW were removed. A JL-4 guide was then exchanged for a pigtail catheter which was used to measure his LVEDP which was 6. At this time I had planned on placing an intraaortic balloon pump as he did come in with chest pain, ST elevations and significant disease with his RCA and left main. The patient was adamant that he did not want a balloon pump. He was of sound mind. We discussed this, both the risks, benefits and alternatives and he understands. He is currently chest pain-free, hemodynamically and electrically stable and so he will continue on a heparin drip and nitro drip without a balloon pump. 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 FINDINGS Left main 70% ostial disease. IVUS area of 4.1 mm2. LAD - Proximally diffuse 50% disease. Distally mild luminal irregularities. It gives off one diagonal which is overall small with no significant disease. RAMUS - A small vessel with no significant disease. LEFT CIRCUMFLEX - Normal sized vessel with 30% disease proximally. It gives off three major obtuse marginals with 20% diffuse disease. RCA - A normal-size vessel with a lesion of 70% in the midportion. In the [id number] portion there appears to be his stent which appears patent but distal of this he has tandem lesions of 80-90%. The second of these lesions coincide with the takeoff of the PDA which has a 99% lesion. Left ventricular end-diastolic pressure is 6. IMPRESSIONS 1. Acute inferior ST-elevation myocardial infarction with no occluded vessels noted on cardiac catheterization. 2. Multivessel coronary artery disease including significant left main disease (IVUS area of 4.1 mm2), and multiple lesions in his RCA. 3. History of coronary artery disease. 4. History of hypertension 5. Questionable alcohol use. RECOMMENDATIONS 1. Mr. Duvall presented with ST elevations in the inferior lead and he does have significant disease in his RCA, but there are no occluded vessels. 2. There was concern for possible multivessel disease as he had a recent stress test which was negative which does not appear to correlate with his anatomy and his RCA. Because of this he was found to have left main disease. My recommendation is consideration of coronary artery bypass grafting and he will be seen by Dr. Deshpande in the morning. 3. I had originally planned to place an intraaortic balloon pump but the patient, of sound mind, decided that he would not want that. He is currently hemodynamically electrically stable with no chest pain. We will continue him on a heparin drip and nitro drip at this time. My other concern is that, per his , he may drink more than what he eludes to and if he has any withdrawal I would prefer if he did not have a balloon pump at that time. 4. We will continue a heparin drip and nitroglycerin drip at this time. 5. We will check a 2-D echo to look at his overall left ventricular function, cardiac structure and possible valvopathies. 6. Further recommendations after CT surgery evaluation. Thank you for allowing me to see Vazquez Duvall. If there are any questions, please do not hesitate to call. Moreno Bryan DO VGP/SSB /11:23 PM /8:34 AM [facility]
[2017-06-15] MEDS ORDERED: ceFAZolin 2 GM PREMIX 50 ML IV SCH (10:30)
[2017-06-15] MEDS ORDERED: SODIUM CHLORIDE 0.9% FLUSH 10 ML FLUSH IV FLUSH PRN (10:30)
[2017-06-15] MEDS ORDERED: PAPAVERINE INJ 60 MG, NITROGLYCERIN INJ 100 MCG, DILTIAZEM INJ 100 MG in SODIUM CHLORID... IRRIGATION SCH (10:30)
[2017-06-15] MEDS ORDERED: INSULIN REGULAR (IV INFUSION) 100 UNITS in SODIUM CHLORIDE 0.9% INJ 100 ML IV SCH (10:30)
[2017-06-15] MEDS ORDERED: CHLORHEXIDINE GLUCONATE 4% SOLN 120 ML BTL TOPICAL SCH (10:30)
[2017-06-15] MEDS ORDERED: METOPROLOL TARTRATE 25 MG TAB PO SCH (10:30)
[2017-06-15] MEDS ORDERED: CEFAZOLIN INJ 500 MG in SODIUM CHLORIDE 0.9% IRR BTL 500 ML IRRIGATION SCH (10:30)
--- NOTE | 2017-06-15 11:49 | PD.CARD.PN ---
Subjective Subjective Remarks Doing well, no events overnight No chest pain, no shortness of breath Objective Medications Current Medications Medications (Trade) Dose Ordered Sig/Josefina Route Start Time Stop Time Status Last Admin (Nitroglycerin-Dextrose Inj) 250 ml @ 0 mls/hr TITRATE IV 06/14/17 20:30 06/14/17 20:37 (Tylenol) 325 mg Q4H PRN PO 06/14/17 22:45 (Percocet 5-325 Mg) 1 tab Q4H PRN PO 06/14/17 22:45 (Percocet 10-325 Mg) 1 tab Q4H PRN PO 06/14/17 22:45 Aspirin 81 mg 81 mg DAILY PO 06/15/17 09:00 06/15/17 08:15 (Nitroglycerin-Dextrose Inj) 250 ml @ 0 mls/hr TITRATE IV 06/14/17 22:45 (Zofran Inj) 4 mg Q4H PRN IV 06/14/17 22:45 (Lopressor) 12.5 mg BID PO 06/15/17 09:00 06/15/17 08:15 (Heparin Inj) 5,000 units UNSCH PRN IV 06/15/17 05:00 Heparin Sodium (Porcine) 2500 units 2,500 units UNSCH PRN IV 06/15/17 05:00 (Heparin-D5W Inj) 250 ml @ 0 mls/hr TITRATE IV 06/14/17 23:00 06/14/17 23:56 (Lipitor) 80 mg HS PO 06/15/17 21:00 (Xanax) 0.5 mg Q6H PRN PO 06/14/17 23:45 06/15/17 00:08 (NS Flush) 2 ml BID IV FLUSH 06/15/17 21:00 (NS Flush) 2 ml UNSCH PRN IV FLUSH 06/15/17 10:30 Vital Signs / I&O Vital Signs Date Time Temp Pulse Resp B/P Pulse Ox O2 Delivery O2 Flow Rate FiO2 06/15/17 10:00 73 06/15/17 08:00 76 06/15/17 08:00 97.9 76 19 156/86 100 06/15/17 08:00 97 Room Air 06/15/17 07:00 100 Nasal Cannula 3.00 06/15/17 06:00 70 06/15/17 04:00 80 06/15/17 04:00 97.7 80 19 142/78 98 06/15/17 02:00 85 06/15/17 01:00 97 Nasal Cannula 3.00 06/15/17 00:00 98.3 102 19 126/98 97 06/14/17 23:00 105 06/14/17 20:45 110 14 136/77 99 Nasal Cannula 2 06/14/17 20:40 111 18 155/99 98 Nasal Cannula 2 06/14/17 20:18 100 Nasal Cannula 2.00 06/14/17 20:18 100 2.00 06/14/17 20:12 98.2 103 14 186/118 96 06/14/17 20:10 99 Nasal Cannula 2 06/14/17 20:10 16 99 Nasal Cannula 2 06/14/17 20:10 99 Nasal Cannula 2 I/O 06/14/17 06/14/17 06/14/17 06/15/17 06/15/17 06/15/17 07:00 15:00 23:00 07:00 15:00 23:00 Intake Total 837 ml Output Total 600 ml Balance 237 ml Intake Oral 240 ml IV Total 597 ml Output Urine Total 600 ml Physical Exam GENERAL: NAD, AAOx3 SKIN: Warm and dry. HEAD: Atraumatic. Normocephalic. EYES: Pupils equal and round. No scleral icterus. No injection or drainage. ENT: No nasal bleeding or discharge. Mucous membranes pink and moist. NECK: Trachea midline. No JVD. CARDIOVASCULAR: Regular rate and rhythm. No murmurs noted RESPIRATORY: No accessory muscle use. Clear to auscultation. Breath sounds equal bilaterally. GASTROINTESTINAL: Abdomen soft, non-tender, nondistended. Hepatic and splenic margins not palpable. MUSCULOSKELETAL: Extremities without clubbing, cyanosis, or edema. No obvious deformities. Right femoral sheath A-line. No hematoma noted. Distal pulses intact 2+. NEUROLOGICAL: Awake and alert. No obvious cranial nerve deficits. Motor grossly within normal limits. Five out of 5 muscle strength in the arms and legs. Normal speech. PSYCHIATRIC: Appropriate mood and affect; insight and judgment normal. Laboratory Laboratory Tests Test 06/14/17 06/15/17 20:20 05:55 White Blood Count 14.6 TH/MM3 9.1 TH/MM3 Red Blood Count 4.85 MIL/MM3 4.28 MIL/MM3 Hemoglobin 15.4 GM/DL 13.8 GM/DL Bedside Hemoglobin 15.0 G/DL Hematocrit 44.3 % 38.8 % Bedside Hematocrit 44.0 % Mean Corpuscular Volume 91.3 FL 90.6 FL Mean Corpuscular Hemoglobin 31.7 PG 32.2 PG Mean Corpuscular Hemoglobin 34.7 % 35.6 % Concent Red Cell Distribution Width 12.2 % 12.7 % Platelet Count 213 TH/MM3 166 TH/MM3 Mean Platelet Volume 7.8 FL 8.0 FL Neutrophils (%) (Auto) 58.7 % 60.2 % Lymphocytes (%) (Auto) 30.0 % 29.6 % Monocytes (%) (Auto) 7.5 % 6.3 % Eosinophils (%) (Auto) 3.0 % 3.3 % Basophils (%) (Auto) 0.8 % 0.6 % Neutrophils # (Auto) 8.6 TH/MM3 5.5 TH/MM3 Lymphocytes # (Auto) 4.4 TH/MM3 2.7 TH/MM3 Monocytes # (Auto) 1.1 TH/MM3 0.6 TH/MM3 Eosinophils # (Auto) 0.4 TH/MM3 0.3 TH/MM3 Basophils # (Auto) 0.1 TH/MM3 0.1 TH/MM3 CBC Comment DIFF FINAL DIFF FINAL Differential Comment Prothrombin Time 10.5 SEC Prothromb Time International 1.0 RATIO Ratio Activated Partial 25.8 SEC 46.0 SEC Thromboplast Time Bedside Sodium 142 MMOL/L Bedside Potassium 3.5 MMOL/L Bedside Chloride 103 MMOL/L Bedside Blood Urea Nitrogen 12 MG/DL Bedside Creatinine 0.9 MG/DL Bedside Glucose 116 MG/DL Calcium Level 8.5 MG/DL 8.4 MG/DL Magnesium Level 1.9 MG/DL Total Creatine Kinase 78 U/L Troponin I 0.06 NG/ML B-Type Natriuretic Peptide 17 PG/ML Sodium Level 140 MEQ/L Potassium Level 3.8 MEQ/L Chloride Level 107 MEQ/L Carbon Dioxide Level 27.2 MEQ/L Anion Gap 6 MEQ/L Blood Urea Nitrogen 11 MG/DL Creatinine 0.70 MG/DL Estimat Glomerular Filtration 121 ML/MIN Rate Random Glucose 104 MG/DL Triglycerides Level 164 MG/DL Cholesterol Level 174 MG/DL LDL Cholesterol 100 MG/DL HDL Cholesterol 41.0 MG/DL Cholesterol/HDL Ratio 4.24 RATIO Assessment and Plan Problem List: (1) STEMI (ST elevation myocardial infarction) (2) CAD (coronary artery disease) (3) Multi-vessel coronary artery stenosis (4) Obese Assessment and Plan 1) Presenting with EKG changes concerning for a STEMI During the procedure was found to have MVCAD, including multiple lesions in the RCA and Left Main disease (IVUS area 4.1) No true occlusions, most likely the PDA lesion recannulated with heparin Chest pain free, hemodynamically and electrically stable, plan CABG 2) Plan to remove right femoral sheath today (unless CT surgery would like to keep for any reason) ACTs will be drawn beforehand Afterwards restart heparin drip 6 hours after sheath pulled at previous rate without bolus 3) Con't ASA/BB/Statin 4) Nitro drip if necessary, but will need to watch his blood pressure with current known CAD Problem Qualifiers (1) STEMI (ST elevation myocardial infarction): Qualified Code: I21.3 - ST elevation myocardial infarction (STEMI), unspecified artery Moreno Castellanos DO Jun 15, 2017 11:49
--- NOTE | 2017-06-15 12:14 | EKG ---
Date Performed: 06/14/2017 Time Performed: 20:22:27 PTAGE: 46 years EKG: SINUS TACHYCARDIA INFERIOR MYOCARDIAL INFARCTION ACUTE FL PREVIOUS TRACING : 06/14/2017 20.14 DOCTOR: Moreno Castellanos Interpretating Date/Time 06/15/2017 12:12:38
--- NOTE | 2017-06-15 12:27 | RADRPT ---
EXAM DATE/TIME: 06/15/2017 11:25 [facility] COMPARISON: No previous studies available for comparison. INDICATIONS : Pre-op cardiac surgery. MEDICAL HISTORY : Hypertension. Myocardial infarction. Hypertension. Dyspnea. Skin cancer. Chemotherapy. CAD. Stemi SURGICAL HISTORY : Cholecystectomy.Appendectomy. ENCOUNTER: Initial ACUITY: 1 day PAIN SCORE: 0/10 LOCATION: Bilateral legs. TECHNIQUE: Venous ultrasound of the left and right leg was performed from the inguinal ligament to the proximal calf. Real-time, color Doppler and spectral tracing, compression and augmentation techniques were us ed. FINDINGS: RIGHT LEG: There is normal compressibility of the deep venous system from the inguinal region to the proximal ca lf. No echogenic clot is seen in the lumen of the common femoral, femoral, popliteal, and posterior tibial veins. There is a normal response of the venous system to proximal and distal augmentation an d respiration. LEFT LEG: There is normal compressibility of the deep venous system from the inguinal region to the proximal ca lf. No echogenic clot is seen in the lumen of the common femoral, femoral, popliteal, and posterior tibial veins. There is a normal response of the venous system to proximal and distal augmentation an d respiration. CONCLUSION: Normal examination. Lev Dalal MD on June 15, 2017 at 12:25 Board Certified Radiologist. This report was verified electronically.
--- NOTE | 2017-06-15 12:37 | RADRPT ---
EXAM DATE/TIME: 06/15/2017 11:07 [facility] COMPARISON: No previous studies available for comparison. INDICATIONS : Pre-op cardiac surgery. MEDICAL HISTORY : Myocardial infarction. Gastroesophageal reflux disease. Hypertension. Dyspnea. Skin cancer. Chemother apy. CAD. Stemi SURGICAL HISTORY : Cholecystectomy. Appendectomy. ENCOUNTER: Initial ACUITY: 1 day PAIN SCORE: 0/10 LOCATION: Bilateral neck PEAK SYSTOLIC VELOCITIES (cm/sec): ICA/CCA RATIO: Right: 1.8 Left: 1.4 ICA: Right: 102 Left: 84 CCA: Right: 70 Left: 94 ECA: Right: 84 Left: 69 VERTEBRAL: Right: 41 antegrade Left: 47 antegrade Elevated flow velocities and ICA/CCA ratios have been found to correlate with increased degrees of vessel stenosis, calculated as percentage of diameter relative to a normal segment of distal ICA/CCA FINDINGS: RIGHT CAROTID: No significant stenosis is visualized. Mild plaque. The waveforms are within normal limits. LEFT CAROTID: No significant stenosis is visualized. Mild plaque. The waveforms are within normal limits. VERTEBRAL ARTERIES: Antegrade flow is seen in both vertebral arteries. MISCELLANEOUS: None. CONCLUSION: No hemodynamically significant stenosis in either carotid artery. Raghav Banks MD on June 15, 2017 at 12:33 Board Certified Radiologist. This report was verified electronically.
--- NOTE | 2017-06-15 13:18 | RADRPT ---
EXAM DATE/TIME: 06/15/2017 11:36 [facility] COMPARISON: No previous studies available for comparison. INDICATIONS : Pre-op cardiac surgery. MEDICAL HISTORY : Myocardial infarction. Gastroesophageal reflux disease. Hypertension. Dyspnea. Skin cancer. Chemotherapy. CAD. Stemi SURGICAL HISTORY : Cholecystectomy. Appendectomy. ENCOUNTER: Initial ACUITY: 1 day PAIN SCORE: 0/10 LOCATION: Bilateral legs. GREATER SAPHENOUS VEIN THIGH: PROXIMAL: Right 7 mm Left 6 mm MID: Right 2 mm Left 2 mm DISTAL: Right 2 mm Left 3 mm CALF: PROXIMAL: Right 2 mm Left 3 mm MID: Right 2 mm Left 2 mm DISTAL: Right 2 mm Left 3 mm FINDINGS: The venous system of the lower extremities are patent by color Doppler imaging. Measurements of the leg veins (in mm) are listed above. CONCLUSION: 1. Patent lower extremity saphenous veins with mapping, as above. Kenn Ludwig MD on June 15, 2017 at 13:16 Board Certified Radiologist. This report was verified electronically.
--- NOTE | 2017-06-15 13:19 | ECHRPT ---
Indication: CAD CONCLUSIONS Normal left ventricular size. Wall thickness is normal. The left ventricular systolic function is mildly reduced with an estimated ejection fraction in the range of 45- 50%. No mitral valve regurgitation. No mitral valve stenosis. No aortic valve regurgitation. No aortic valve stenosis. There is trace tricuspid valve regurgitation. The pulmonary valve is not well visualized. BP: 142 / 78 HR: 80 Rhythm: MEASUREMENTS (Male / Female) Normal Values Technical Quality:Technically difficult study 2D ECHO LV Diastolic Diameter PLAX 5.2 cm 4.2 - 5.9 / 3.9 - 5.3 cm LV Systolic Diameter PLAX 4.2 cm IVS Diastolic Thickness 1.0 cm 0.6 - 1.0 / 0.6 - 0.9 cm LVPW Diastolic Thickness 1.2 cm 0.6 - 1.0 / 0.6 - 0.9 cm LV Relative Wall Thickness 0.4 RV Internal Dim ED PLAX 3.3 cm M-MODE Aortic Root Diameter MM 3.7 cm LA Systolic Diameter MM 3.2 cm LA Ao Ratio MM 0.9 AV Cusp Separation MM 2.4 cm DOPPLER Mitral E Point Velocity 88.4 cm/s Mitral A Point Velocity 72.1 cm/s Mitral E to A Ratio 1.2 LV E' Lateral Velocity 9.2 cm/s Mitral E to LV E' Lateral Ratio 9.7 LV E' Septal Velocity 9.1 cm/s Mitral E to LV E' Septal Ratio 9.7 FINDINGS LEFT VENTRICLE Normal left ventricular size. Wall thickness is normal. The left ventricular systolic function is mildly reduced with an estimated ejection fraction in the range of 45- 50%. RIGHT VENTRICLE Normal right ventricular size and systolic function. LEFT ATRIUM The left atrial size is normal. RIGHT ATRIUM The right atrial size is normal. ATRIAL SEPTUM Normal atrial septal thickness without atrial level shunting by limited color doppler interrogation. AORTA The aortic root and proximal ascending aorta are normal in size on limited imaging. MITRAL VALVE Structurally normal mitral valve. No mitral valve regurgitation. No mitral valve stenosis. AORTIC VALVE Trileaflet aortic valve. No aortic valve regurgitation. No aortic valve stenosis. TRICUSPID VALVE Structurally normal tricuspid valve. There is trace tricuspid valve regurgitation. PULMONARY VALVE The pulmonary valve is not well visualized. VESSELS The inferior vena cava is normal in size. PERICARDIUM No pericardial effusion. Lety Brady MD, FACC (Electronically Signed) Final Date:15 June 2017 13:19
--- NOTE | 2017-06-15 14:21 | HHI.CCPN ---
Subjective Remarks/Hospital Course 46 year old male presents with a history of chest pressure that he reports began 40-50 minutes prior to arrival. He reports having associated shortness of breath. He reports having an aching sensation that radiates up into the left axilla. And he also reports having diaphoresis. He denies having any nausea or vomiting. He has had a single stent placed in his RCA at 2008. He was emergently taken to cardiac catheter lab, where he was found to have a left main disease as well as multiple lesions of the RCA, Dr. Woods offered IABP however patient refused. Patient agreed to undergo CABG procedure this week. Subjective 06/15: Afebrile. Hemodynamically stable. Denies chest pain. Plan for CABG tomorrow with Dr. Deshpande. Requesting no fentanyl. Objective Vital Signs Date Time Temp Pulse Resp B/P Pulse Ox O2 Delivery O2 Flow Rate FiO2 06/15/17 13:00 97 Room Air 06/15/17 13:00 98.5 88 18 132/93 155/83 06/15/17 07:00 3.00 Result Diagram: 06/15/17 0555 06/15/17 0555 Imaging Last Impressions Lower Extremity Ultrasound 06/15/17 0000 Signed Impressions: Service Date/Time: Thursday, June 15, 2017 11:25 - CONCLUSION: Normal examination. Lev Dalal MD Carotid Artery Ultrasound 06/15/17 0000 Signed Impressions: Service Date/Time: Thursday, June 15, 2017 11:07 - CONCLUSION: No hemodynamically significant stenosis in either carotid artery. Raghav Banks MD Chest X-Ray 06/14/172019 Signed Impressions: Service Date/Time: Wednesday, June 14, 2017 20:16 - CONCLUSION: No acute disease. Jean Claude May MD Objective Remarks GENERAL: 46-year-old male, resting in bed in no acute distress SKIN: Warm and dry. Bilateral lower extremities demarcated for CABG/EVH in a.m. HEAD: Normocephalic. EYES: No scleral icterus. No injection or drainage. NECK: Supple, trachea midline. No JVD or lymphadenopathy. CARDIOVASCULAR: Regular rate and rhythm S1, S2 no S4. Without murmurs, gallops , or rubs. RESPIRATORY: Breath sounds equal bilaterally. No accessory muscle use. GASTROINTESTINAL: Abdomen soft, non-tender, nondistended. MUSCULOSKELETAL: No cyanosis, or edema. EXTREMITIES: No clubbing cyanosis or edema Urinary Catheter: No Assessment to: Continue Vascular Central Line Catheter: No Assessment to: Continue A/P Assessment and Plan Neuro/Psych: Anxiety disorder NOS Acetaminophen for fever [place] for pain management Requesting no fentanyl Currently on alprazolam 0.5 mg as needed every 8 hours when necessary anxiety CV: Coronary artery disease Dyslipidemia Hypertension [place] catheter ablation revealed 70% left main obstruction, 50% proximal LAD, 30% proximal circumflex, 70% RCA. 2-dimensional echocardiogram revealed EF about 50%. Normal LV function. Trace TR. Continue aspirin 81 mg by mouth daily for coronary disease. Continue atorvastatin 80 no grams by mouth daily for dyslipidemia Continue metoprolol 12.5 mg by mouth twice a day for hypertension Plan for CABG with Dr. Deshpande in a.m. 06/16 Continue heparin drip and nitroglycerin drip Resp: Nasal cannula to maintain saturations greater than or equal to 92% Incentive spirometry while awake GI: Nothing by mouth after midnight Currently not on GI prophylaxis Bowel regimen postsurgery : Camp catheter currently not indicated Endo: Sliding-scale insulin if indicated Renal: Monitor urine output Accurate I's and O's Creatinine currently within normal limits Heme: CBC currently within normal limits. Follow-up CBC in AM. ID: Ancef 2 g on-call per cardiology MSK: Out of bed as tolerated FEN: Replacing lites lites as clinically indicated Access - utilize peripheral IV. Central line if indicated. Level II follow-up Arpit Duenas MD Jun 15, 2017 14:21
[2017-06-15 14:22] LABS: BLOOD, URINE NEG (NEG); COMMENT (UR) CULT NOT INDICATED; CULTURE IF INDICATED CULT NOT INDICATED; GLUCOSE,URINE NEG (NEG); KETONE, URINE NEG (NEG); MUCUS URINE FEW /lpf (OCC); NITRITE,URINE NEG (NEG); PH, URINE 7.5 (5.0-8.5); URINE COLOR LIGHT-YELLOW (YELLW/STRAW)
[2017-06-15 14:28] LABS: APTT (PATIENT) 36.4 SEC (24.3-30.1)
[2017-06-15] MEDS ORDERED: ACETAMINOPHEN/HYDROcodone 325 MG/5 MG TAB PO PRN (15:00)
[2017-06-15] MEDS: ACETAMINOPHEN/HYDROcodone 325 MG/10 MG TAB PO PRN (15:56)
[2017-06-15] MEDS ORDERED: hydrALAZINE HCL 20 MG/ML VIAL ONE (16:15)
[2017-06-15 16:52] LABS: HEMOGLOBIN A1a 0.7 %; HEMOGLOBIN A1b 1.3 %
[2017-06-15 16:53] LABS: HEMOGLOBIN Ao 87.4 %; HEMOGLOBIN P3 3.5 %
--- NOTE | 2017-06-15 16:58 | PD.CAR.PN ---
CVT Progress Note Subjective/Hospital Course: pt seen and evaluated, full consult dictated sts data discussed with pt RISK SCORES About the STS Risk Calculator Procedure: CAB Only Risk of Mortality: 0.26% Morbidity or Mortality: 5.563% Long Length of Stay: 1.197% Short Length of Stay: 77.406% Permanent Stroke: 0.296% Prolonged Ventilation: 3.646% DSW Infection: 0.162% Renal Failure: 0.46% Reoperation: 2.565% Objective: Vital Signs Date Time Temp Pulse Resp B/P Pulse Ox O2 Delivery O2 Flow Rate FiO2 06/15/17 15:00 98.6 72 18 98 154/85 06/15/17 15:00 75 06/15/17 13:00 97 Room Air 06/15/17 13:00 98.5 88 18 132/93 97 155/83 06/15/17 13:00 82 06/15/17 12:00 78 06/15/17 12:00 98.1 78 23 162/90 99 06/15/17 10:00 73 06/15/17 08:00 76 06/15/17 08:00 97.9 76 19 156/86 100 06/15/17 08:00 97 Room Air 06/15/17 07:00 100 Nasal Cannula 3.00 06/15/17 06:00 70 06/15/17 04:00 80 06/15/17 04:00 97.7 80 19 142/78 98 06/15/17 02:00 85 06/15/17 01:00 97 Nasal Cannula 3.00 06/15/17 00:00 98.3 102 19 126/98 97 06/14/17 23:00 105 06/14/17 20:45 110 14 136/77 99 Nasal Cannula 2 06/14/17 20:40 111 18 155/99 98 Nasal Cannula 2 06/14/17 20:18 100 Nasal Cannula 2.00 06/14/17 20:18 100 2.00 06/14/17 20:12 98.2 103 14 186/118 96 06/14/17 20:10 99 Nasal Cannula 2 06/14/17 20:10 16 99 Nasal Cannula 2 06/14/17 20:10 99 Nasal Cannula 2 Labs: Laboratory Tests Test 06/15/17 06/15/17 06/15/17 06/15/17 05:55 12:00 13:00 13:58 White Blood Count 9.1 TH/MM3 (4.0-11.0) Red Blood Count 4.28 MIL/MM3 (4.50-5.90) Hemoglobin 13.8 GM/DL (13.0-17.0) Hematocrit 38.8 % (39.0-51.0) Mean Corpuscular Volume 90.6 FL (80.0-100.0) Mean Corpuscular Hemoglobin 32.2 PG (27.0-34.0) Mean Corpuscular Hemoglobin 35.6 % Concent (32.0-36.0) Red Cell Distribution Width 12.7 % (11.6-17.2) Platelet Count 166 TH/MM3 (150-450) Mean Platelet Volume 8.0 FL (7.0-11.0) Neutrophils (%) (Auto) 60.2 % (16.0-70.0) Lymphocytes (%) (Auto) 29.6 % (9.0-44.0) Monocytes (%) (Auto) 6.3 % (0.0-8.0) Eosinophils (%) (Auto) 3.3 % (0.0-4.0) Basophils (%) (Auto) 0.6 % (0.0-2.0) Neutrophils # (Auto) 5.5 TH/MM3 (1.8-7.7) Lymphocytes # (Auto) 2.7 TH/MM3 (1.0-4.8) Monocytes # (Auto) 0.6 TH/MM3 (0-0.9) Eosinophils # (Auto) 0.3 TH/MM3 (0-0.4) Basophils # (Auto) 0.1 TH/MM3 (0-0.2) CBC Comment DIFF FINAL Differential Comment Activated Partial 46.0 SEC 36.4 SEC Thromboplast Time (24.3-30.1) (24.3-30.1) Sodium Level 140 MEQ/L (136-145) Potassium Level 3.8 MEQ/L (3.5-5.1) Chloride Level 107 MEQ/L (98-107) Carbon Dioxide Level 27.2 MEQ/L (21.0-32.0) Anion Gap 6 MEQ/L (5-15) Blood Urea Nitrogen 11 MG/DL (7-18) Creatinine 0.70 MG/DL (0.60-1.30) Estimat Glomerular Filtration 121 ML/MIN Rate (>89) Random Glucose 104 MG/DL (74-106) Calcium Level 8.4 MG/DL (8.5-10.1) Triglycerides Level 164 MG/DL (42-150) Cholesterol Level 174 MG/DL (120-200) LDL Cholesterol 100 MG/DL (0-99) HDL Cholesterol 41.0 MG/DL (40.0-60.0) Cholesterol/HDL Ratio 4.24 RATIO Hemoglobin A1c 4.8 % (4.3-6.0) Blood Type A POSITIVE A POSITIVE Antibody Screen NEGATIVE Crossmatch Leukocyte-Reduced Red Blood Cells Blood Bank Comment Urine Color LIGHT-YELLOW (YELLW/STRAW) Urine Turbidity CLEAR (CLEAR) Urine pH 7.5 (5.0-8.5) Urine Specific [place] 1.010 (1.002-1.035) Urine Protein NEG mg/dL (NEG-TRACE) Urine Glucose (UA) NEG mg/dL (NEG) Urine Ketones NEG mg/dL (NEG) Urine Occult Blood NEG (NEG) Urine Nitrite NEG (NEG) Urine Bilirubin NEG (NEG) Urine Urobilinogen LESS THAN 2.0 MG/DL (LESS THAN 2.0) Urine Leukocyte Esterase NEG (NEG) Urine RBC LESS THAN 1 /hpf (0-3) Urine WBC LESS THAN 1 /hpf (0-5) Urine Mucus FEW /lpf (OCC) Microscopic Urinalysis Comment CULT NOT INDICATED Result Diagram: 06/15/1755 06/15/1755 (1) STEMI (ST elevation myocardial infarction) (2) CAD (coronary artery disease) (3) Multi-vessel coronary artery stenosis (4) Obese Problem Qualifiers (1) STEMI (ST elevation myocardial infarction): Qualified Code: I21.3 - ST elevation myocardial infarction (STEMI), unspecified artery Ness Goff Jun 15, 2017 16:58
[2017-06-15] MEDS ORDERED: hydrALAZINE HCL 20 MG/ML VIAL IV PUSH PRN (17:00)
[2017-06-15] MEDS ORDERED: hydrALAZINE HCL 20 MG/ML VIAL IV ONE (17:00)
--- NOTE | 2017-06-15 17:42 | MB ---
cc: QUYEN DESHPANDE DATE OF CONSULTATION: 06/15/2017 DATE OF : 1970 REASON FOR CONSULTATION: Evaluate for coronary artery bypass grafting. HISTORY OF PRESENT ILLNESS: The patient is a 46-year-old male, no primary care physician, presented to the emergency room on 06/14, apparently was playing pool, having a few drinks when he started feeling a gas bubble that felt trapped in his chest, became short of breath. The pain radiated to his left axilla area, also became a little bit diaphoretic. He had the pain for about 40 to 50 minutes prior to arrival on the . The patient has had prior history of coronary artery disease and in 2008 he had a stent placed apparently in the RCA. He was last followed by Dr. Joseph and had a stress test in 2015 which was negative. He had some notable ST elevation in the inferior leads and went emergently to the laborer [facility] where he was found to have left main disease of 70% ostial. The LAD had a proximal diffuse 50% stenosis. The left circ had about 30% disease proximal and the RCA had a 70% in the midportion, also some distal 80-90% and the PDA had about a 99% lesion. We were consulted to evaluate for coronary artery bypass grafting. Initially there was the concern about placing an intra-aortic balloon pump but the patient decided that he did not want that, so we were consulted for further evaluation. PAST MEDICAL HISTORY: The patient's past medical history includes coronary artery disease with prior DC 2008 where he had a stent to the RCA, hypertension, gastroesophageal reflux disease, anxiety, hypertension. PAST SURGICAL HISTORY: Surgeries include cardiac cath in 2008, cholecystectomy, appendectomy. ALLERGIES: The patient has no known allergies. MEDICATIONS: He takes no medication. FAMILY HISTORY Father at 51 from interstitial pulmonary fibrosis, mother is age 78 and had history of stent in her 50s. SOCIAL HISTORY The patient , two children. No tobacco. He drinks socially. He says three times per week. He works as a general merchandise salesperson somewhat sedentary lifestyle. REVIEW OF SYSTEMS: In general, no night sweats, fever, heat and cold intolerance. Skin: No psoriasis, itching or hives. HEENT: No blurred vision, hearing loss. Respiratory: Positive for shortness of breath. Cardiovascular: As above in HPI. Gastrointestinal: No recent diarrhea, vomiting. Genitourinary: No burning, frequency, urgency. CHIEF DISPATCHER SERVICE: No history of TIA, CVA, seizure disorder. Endocrinology: No history of diabetes and/or hypothyroidism. PHYSICAL EXAMINATION: On exam blood pressure 150/80, heart rate 75, afebrile. Patient is awake, alert, no acute distress. Head: Head is normocephalic, atraumatic. Pupils equal and reactive. Oral mucosa pink, moist. Neck: Supple. No JVD. Heart: Heart sounds S1-S2, regular rate and rhythm. No audible rub, murmur, gallop. Lungs: Clear to auscultation. No wheezes, rales or rhonchi. Abdomen: Obese, soft, nontender. No masses or organomegaly. He does have a sheath in his right groin. He has good distal pulses. LABORATORY DATA: Lab work shows hemoglobin 13, hematocrit of 38, white cell count 9.1, platelet count of 166, sodium 140, potassium 3.8, BUN of 11, creatinine 0.70, hemoglobin A1c is pending. Triglycerides 164, cholesterol 174, LDL 100, HDL of 41, INR 1.0. Urinalysis is unremarkable. Chest x-ray: Unremarkable. Carotid ultrasound: No hemodynamically significant stenosis bilaterally. IMPRESSION This is a 46-year-old male with prior history of DC in 2008, apparent stent to the RCA, underwent cardiac cath with multivessel disease. He also had a 2-D echocardiogram which showed an EF of 45-50%. No mitral valve regurgitation or stenosis. No aortic valve regurgitation or stenosis and trace tricuspid valve regurgitation. At this time the cardiac films have been reviewed by Dr. Quyen Deshpande. PLAN: The plan will be for coronary artery bypass grafting x3 in the a.m. The STS data will be discussed with the patient and documented in the electronic record. Further planning as per Dr. Deshpande. Dictated by: PRAVEEN Arias MD YA Ponce/ARY /4:57 PM /8:16 AM
--- NOTE | 2017-06-15 18:51 | EKG ---
Date Performed: 06/14/2017 Time Performed: 20:14:23 PTAGE: 46 years EKG: SINUS TACHYCARDIA POSSIBLE ANTERIOR MYOCARDIAL INFARCTION INFERIOR MYOCARDIAL INFARCTION *ACUTE [place] PREVIOUS TRACING : 02/16/2012 22.42 Compared to the previous tracing, rate has increased, ST elevations inferiorly are new DOCTOR: Moreno Castellanos Interpretating Date/Time 06/15/2017 18:48:57
[2017-06-15] MEDS: ATORVASTATIN 80 MG TAB PO SCH (21:21)
[2017-06-15] MEDS: SODIUM CHLORIDE 0.9% FLUSH 10 ML FLUSH IV FLUSH SCH (21:22)
[2017-06-16] VITALS (10 sets, daily range): BP systolic 95–124; BP diastolic 51–82; PULSE 57–117; RESP 14–20; TEMP 97.1–98.6; O2SAT 93–98
[2017-06-16 04:03] LABS: HEMATOCRIT 41.7 % (39.0-51.0); MEAN CELL VOLUME 91.1 FL (80.0-100.0); MEAN CORPUSCULAR HEMOGLOBIN 32.3 PG (27.0-34.0); MEAN CORPUSCULAR HGB CONC 35.5 % (32.0-36.0); PLATELET COUNT 172 TH/MM3 (150-450); RED BLOOD COUNT 4.58 MIL/MM3 (4.50-5.90); RED CELL DISTRIBUTION WIDTH 12.8 % (11.6-17.2); REVIEW FLAG FINAL; WHITE BLOOD COUNT 9.5 TH/MM3 (4.0-11.0)
[2017-06-16 04:30] LABS: BICARBONATE 28.4 MEQ/L (21.0-32.0); POTASSIUM 3.6 MEQ/L (3.5-5.1)
[2017-06-16] MEDS ORDERED: PHENYLEPHRINE HCL 10 MG/ML VIAL IV ONE (05:00)
[2017-06-16] MEDS ORDERED: CALCIUM CHLORIDE 10% SOLN 1 GRAM/10 ML SYR IV ONE (05:00)
[2017-06-16] MEDS ORDERED: HEPARIN SODIUM - SQ 10,000 UNITS/ML VIAL SQ ONE (05:00)
[2017-06-16] MEDS ORDERED: SODIUM BICARBONATE 8.4% INJ 50 MEQ/50 ML SYR IV ONE (05:00)
[2017-06-16] MEDS ORDERED: ARTIFICIAL TEARS OPTH OINT 3.5 APPLIC/3.5 GM TUBO ONE (05:00)
[2017-06-16] MEDS ORDERED: PROTAMINE SULFATE 250 MG/25 ML VIAL IV ONE (05:00)
[2017-06-16] MEDS ORDERED: NOREPINEPHRINE 4 MG/4 ML AMP IV ONE (05:00)
[2017-06-16] MEDS ORDERED: VECURONIUM BROMIDE 10 MG VIAL IV ONE (05:00)
[2017-06-16] MEDS ORDERED: MAGNESIUM SULFATE 1000 MG/2 ML VIAL (PED) IV ONE (05:00)
[2017-06-16] MEDS ORDERED: GLYCOPYRROLATE 0.2 MG/ML VIAL IV ONE (05:00)
[2017-06-16] MEDS ORDERED: AMINOCAPROIC ACID INJ 250 MG/ML 20 ML VIAL IV ONE (05:00)
[2017-06-16] MEDS ORDERED: VANCOMYCIN HCL 1000 MG VIAL ONE (06:45)
[2017-06-16] MEDS ORDERED: ceFAZolin 2 GM PREMIX 50 ML ONE (06:45)
[2017-06-16] MEDS ORDERED: HEPARIN SODIUM - SQ 10,000 UNITS/ML VIAL ONE (06:46)
[2017-06-16] MEDS ORDERED: methylPREDNISolone SOD SUCC 125 MG/2 ML VIAL ONE (06:46)
[2017-06-16] MEDS ORDERED: CARDIOPLEGIC IRR 1,000 ML ONE (06:52)
[2017-06-16] MEDS ORDERED: POTASSIUM CHLORIDE 40 MEQ/20 ML VIAL ONE (06:52)
[2017-06-16] MEDS ORDERED: ALBUMIN HUMAN 25% 12.5 GM/50 ML BAGP IV ONE (06:53)
[2017-06-16] MEDS ORDERED: MANNITOL INJ 50 ML ONE (06:53)
[2017-06-16] MEDS ORDERED: HEPARIN SODIUM - IV 10,000 UNITS/10 ML VIAL ONE (06:54)
[2017-06-16] MEDS ORDERED: CHLORHEXIDINE GLUCONATE 2 % 1 PACK (2 CLOTHS) TOPICAL ONE (07:15)
[2017-06-16] MEDS: METOPROLOL TARTRATE 25 MG TAB PO SCH (09:00)
[2017-06-16] MEDS: SODIUM CHLORIDE 0.9% FLUSH 10 ML FLUSH IV FLUSH SCH ×2 (09:00→21:15)
[2017-06-16] MEDS: ASPIRIN 81 MG CHEW TAB PO SCH (09:00)
--- NOTE | 2017-06-16 09:41 | RSPPFT ---
DATE OF PROCEDURE: 06/15/17 COMMENTS: Spirometry with FVC of 3.6 predicted 4.7, FEV1 of 2.8 predicted 3.7, FEV1/FVC ratio 79% predicted 78%. IMPRESSION: There is a marginally decreased, and if clinically warranted, lung volumes should be measured to rule out restrictive lung defect.
[2017-06-16] MEDS ORDERED: LACTATED RINGER'S 1000 ML INJ 500 ML IV PRN (11:24)
[2017-06-16] MEDS ORDERED: ACETAMINOPHEN 325 MG TAB PO PRN (11:30)
[2017-06-16] MEDS ORDERED: Post-op Orders (for Pharmacy) MISC OTHER ONE (11:30)
[2017-06-16] MEDS ORDERED: MAGNESIUM SULFATE INJ 2 GM in SODIUM CHLORIDE 0.9% INJ 100 ML IV PRN ×4 (11:30)
[2017-06-16] MEDS ORDERED: DEXTROSE 50% IN WATER 50 ML VIAL(D50) IV PUSH PRN (11:30)
[2017-06-16] MEDS ORDERED: INSULIN REGULAR (IV INFUSION) 100 UNITS in SODIUM CHLORIDE 0.9% INJ 99 ML IV SCH (11:30)
[2017-06-16] MEDS ORDERED: METOPROLOL TARTRATE 5 MG/5 ML VIAL IV PUSH PRN (11:30)
[2017-06-16] MEDS ORDERED: ACETAMINOPHEN 650 MG SUPP RECTAL PRN (11:30)
[2017-06-16] MEDS ORDERED: POTASSIUM CHLORIDE 20 MEQ CONTROLLED RELEASE TAB PO PRN ×2 (11:30)
[2017-06-16] MEDS ORDERED: SODIUM CHLORIDE 0.9% FLUSH 10 ML FLUSH IV FLUSH PRN (11:30)
[2017-06-16] MEDS ORDERED: CALCIUM CHLORIDE 10% 1 GRAM/10 ML VIAL IV PRN (11:30)
[2017-06-16] MEDS ORDERED: CALCIUM CHLORIDE INJ 1 GM in SODIUM CHLORIDE 0.9% INJ 100 ML IV PRN (11:30)
[2017-06-16] MEDS ORDERED: hydrALAZINE HCL 20 MG/ML VIAL IV PRN (11:30)
[2017-06-16] MEDS ORDERED: CLEVIDIPINE INJ 50 ML IV SCH (11:30)
[2017-06-16] MEDS ORDERED: POTASSIUM CHLOR 20 MEQ PREMIX 100 ML IV PRN ×3 (11:30)
[2017-06-16] MEDS ORDERED: ONDANSETRON HCL 4 MG/2 ML VIAL IV PUSH PRN (11:30)
--- NOTE | 2017-06-16 11:31 | PD.OP ---
cc: Quyen Deshpande MD; CastellanosMoreno Green DO Operative Report Date of Surgery: Jun 16, 2017 Preoperative Diagnosis: (1) CAD (coronary artery disease) (2) STEMI (ST elevation myocardial infarction) (3) Multi-vessel coronary artery stenosis Postoperative Diagnosis: same Procedure: CABG x 3 LEAVITT to LAD - good SVG to OM - good SVG to PDA - good EVH Anesthesia: Dr. Baum Surgeon: Quyen Deshpande Retail Aide(s): DALE Sanchez Operation and Findings: The risks, benefits, complications, treatment options, and expected outcomes were discussed with the patient. The possibilities of reaction to medication, pulmonary aspiration, perforation of viscus, bleeding, recurrent infection, the need for additional procedures, failure to diagnose a condition, and creating a complication requiring transfusion or operation were discussed with the patient. The patient concurred with the proposed plan, giving informed consent. The site of surgery properly noted/marked. The patient was taken to Operating Room, identified as [place] and the procedure verified as CABG, EVH. A Time Out was held and the above information confirmed. Standard monitoring lines and [place] catheter were placed. General anesthesia was induced. The patient was prepped and draped in a sterile fashion. A median sternotomy was performed and electrocautery was used to obtain hemostasis. The left internal mammary artery was procured as a pedicle from the 7th rib to the 1st rib in the usual manner. Simultaneously left greater saphenous vein was procured from the left leg using a minimally invasive endoscopic technique. The vein was prepared for anastomosis and the leg wound was irrigated and closed in 2 layers. The pericardium was opened and a pericardial sling was created using interrupted 0 silk sutures. The patient was heparinized for cardiopulmonary bypass and the distal mammary pedicle was instrumented for anastomosis. The heart was instrumented for cardiopulmonary bypass in the usual manner. Antegrade blood cardioplegia was employed. The patient was placed on cardiopulmonary bypass. An aortic cross-clamp was applied and the heart was arrested using cold blood cardioplegia. Antegrade cardioplegia was administered after he each anastomosis. After adequate arrest, the distal right coronary circulation was investigated and the PDA was opened with a [place] blade and found to be a 1.5 millimeter good target. Saphenous vein was approximated to the PDA artery using a running 7 0 Prolene suture. The graft was measured for length and orientation and the proximal anastomosis was constructed to the ascending aorta using a running 5 0 Prolene suture after creating an aortotomy with a 5 millimeter punch. The 1st circumflex marginal artery was then opened with a [place] blade and found to be a 1.5 millimeter good target. Saphenous vein was approximated to the OM1 artery using a running 7 0 Prolene suture. The graft was measured for length and orientation and was suspended from the pericardium. The distal LAD was opened with a [place] blade and found to be a 1.5 millimeter good target. The left internal mammary artery was approximated to the LAD using a running 7 0 Prolene suture. The pedicle was attached to the epicardium using interrupted 5 0 silk suture. The patient was systemically rewarmed and received a hotshot dose of warm blood cardioplegia. The aorta was vented and the proximal anastomosis to the OM1 graft was accomplished using a running 5 0 Prolene suture after creating an aortotomy was a 5 millimeter punch. The cross-clamp was removed and all proximal and distal anastomoses were examined for hemostasis. The patient was weaned from cardiopulmonary bypass. Protamine was given. There was no adverse reaction. Decannulation was carried out without incident. Wound was checked for hemostasis which was obtained using electrocautery. A 36 [place] mediastinal and 32 [place] left pleural chest was were placed and secured to the skin with 0 silk suture. The sternum was closed with stainless steel wire. The fascia was closed with 1. PDS. The subcutaneous tissue was closed using a running 2-0 Vicryl suture. The skin was closed with 4-0 Monocryl. Sterile dressings were placed. At the end of the operation, all sponge, instruments, and needle counts were correct. The patient was transferred to the CICU in stable condition. Findings: good distal targets XC: 46 min CPB: 53 min Drains: mediastinal x 1 pleural x 1 Complications: none Disposition: to CVICU in stable condition Quyen Deshpande MD Jun 16, 2017 11:31
[2017-06-16] MEDS ORDERED: ceFAZolin INJ 1,000 MG VIAL ONE (11:36)
[2017-06-16] MEDS ORDERED: MIDAZOLAM HCL 5 MG/5 ML VIAL ONE (12:13)
[2017-06-16] MEDS ORDERED: fentaNYL CITRATE 1000 MCG/20 ML VIAL ONE (12:13)
[2017-06-16] MEDS ORDERED: RESP: RACEPINEPHRINE 2.25% 0.5 ML NEB NEB PRN (13:00)
[2017-06-16] MEDS: RESP: ALBUTEROL 2.5 MG/IPRATROPIUM 0.5 MG NEB (PRN) NEB (13:06)
[2017-06-16] MEDS: ACETAMINOPHEN 1000 MG/100 ML VIAL IV SCH ×2 (13:15→19:42)
--- NOTE | 2017-06-16 13:27 | RADRPT ---
EXAM DATE/TIME: 06/16/2017 12:11 [place] COMPARISON: CHEST SINGLE AP, June 14, 2017, 20:16. INDICATIONS : Post-op CABG. MEDICAL HISTORY : None. SURGICAL HISTORY : None. ENCOUNTER: Initial ACUITY: 3 days PAIN SCORE: Non-responsive. LOCATION: chest FINDINGS: A single view of the chest demonstrates left basilar atelectasis. Cardiomegaly and previous CABG. Lef t sided chest tube without pneumothorax. Right jugular central line with tip in the right atrium. End otracheal tube with tip 1 cm above the patric. Nasogastric tube tip in stomach.. Osseous structures are intact. CONCLUSION: 1. Status post CABG. 2. Left basilar atelectasis. 3. Left-sided chest tube without pneumothorax. Raghav Banks MD on June 16, 2017 at 13:24 Board Certified Radiologist. This report was verified electronically.
[2017-06-16] MEDS ORDERED: ATROPINE SULFATE 1 MG/10 ML SYRINGE ONE (13:46)
[2017-06-16] MEDS ORDERED: MORPHINE SULFATE 4 MG/ML INJ ONE ×2 (13:47→13:49)
--- NOTE | 2017-06-16 14:30 | HHI.CCPN ---
Subjective Remarks/Hospital Course 46 year old male presents with a history of chest pressure that he reports began 40-50 minutes prior to arrival. He reports having associated shortness of breath. He reports having an aching sensation that radiates up into the left axilla. And he also reports having diaphoresis. He denies having any nausea or vomiting. He has had a single stent placed in his RCA at 2008. He was emergently taken to cardiac catheter lab, where he was found to have a left main disease as well as multiple lesions of the RCA, Dr. Woods offered IABP however patient refused. Patient agreed to undergo CABG procedure this week. 06/15: Afebrile. Hemodynamically stable. Denies chest pain. Plan for CABG tomorrow with Dr. Deshpande. Requesting no fentanyl. Subjective 06/16: Afebrile. Status post CABG 3 EVH from left lower extremity with good results. Extubated. Hemodynamic stable. Off all drips. Objective Vital Signs Date Time Temp Pulse Resp B/P Pulse Ox O2 Delivery O2 Flow Rate FiO2 06/16/17 13:00 97 Nasal Cannula 4 06/16/17 12:10 60 06/16/17 07:00 77 06/16/17 03:00 98.0 18 124/59 118/78 Intake and Output 06/15/17 06/15/17 06/15/17 07:59 15:59 23:59 Intake Total 837 ml 500 ml Output Total 600 ml 450 ml Balance 237 ml 50 ml Result Diagram: 06/16/17 0330 06/16/17 0330 Imaging \ Last Impressions Chest X-Ray 06/16/17 0000 Signed Impressions: Service Date/Time: Friday, June 16, 2017 12:11 - CONCLUSION: 1. Status post CABG. 2. Left basilar atelectasis. 3. Left-sided chest tube without pneumothorax. Raghav Banks MD Lower Extremity Ultrasound 06/15/17 0000 Signed Impressions: Service Date/Time: Thursday, June 15, 2017 11:25 - CONCLUSION: Normal examination. Lev Dalal MD Carotid Artery Ultrasound 06/15/17 0000 Signed Impressions: Service Date/Time: Thursday, June 15, 2017 11:07 - CONCLUSION: No hemodynamically significant stenosis in either carotid artery. Raghav Banks MD Objective Remarks GENERAL: 46-year-old male, resting in bed in no acute distress SKIN: Cool left lower extremity otherwise well perfused and dry. HEAD: Normocephalic. EYES: No scleral icterus. No injection or drainage. NECK: Supple, trachea midline. No JVD or lymphadenopathy. CARDIOVASCULAR: Regular rate and rhythm S1, S2 no S4. Without murmurs, gallops , or rubs. RESPIRATORY: Breath sounds equal bilaterally. No accessory muscle use. Mediastinal/left chest tube clean dry and intact. GASTROINTESTINAL: Abdomen soft, non-tender, nondistended. NEURO: Cranial nerves II through XII grossly intact. Strength is equal and symmetric. Normal sensation EXTREMITIES: Left lower extremity covered with [place] bandage. Right lower extremity LILY hose Vascular Central Line Catheter: Yes Assessment to: Continue Date of Insertion: Jun 16, 2017 Line: Central Venous Catheter Side: Right Location: Internal, Jugular A/P Assessment and Plan Neuro/Psych: Anxiety disorder NOS Acetaminophen 325 mg every4 hours when necessary for fever and pain 1-2 [place] 5/25 one tablet daily 4 hours when necessary pain 3-5 [place] 10/325 one tablet every 4 hours when necessary pain 6-10 Morphine 2 g IV every 2 hours when necessary breakthrough pain Ofirmev 1 g IV every 6 hours 4 dosages CV: Postop day #0 CABG 3 LEAVITT to LAD, SVG to OM and PDA with left lower extremity EVH. - Dr. Deshpande Coronary artery disease Dyslipidemia Hypertension EBL 250. Cell Saver 750. Urine output 900. Crystalloid 3500. Cardiac catheterization revealed 70% left main obstruction, 50% proximal LAD, 30 % proximal circumflex, 70% RCA. 2-dimensional echocardiogram revealed EF about 50%. Normal LV function. Trace TR. Continue aspirin 81 mg by mouth daily for coronary disease. Continue atorvastatin 80 milligrams by mouth daily for dyslipidemia Continue amiodarone 400 mg by mouth every 8 hours Resp: Nasal cannula to maintain saturations greater than or equal to 92% Incentive spirometry while awake Mediastinal/left chest tube -20 cm H2O with minimal drainage. Monitor closely GI: Nothing by mouth Pantoprazole 40 mg by mouth daily for GI prophylaxis Bowel regimen postsurgery : [place] catheter currently not indicated Endo: Insulin drip has been discontinued. Maintain strict euglycemia. Renal: Monitor urine output Accurate I's and O's Creatinine currently within normal limits Heme: CBC currently within normal limits. Follow-up CBC in AM. ID: Ancef 2 g IV every 8 hours [address] surgery Monitor for signs and symptoms of infection MSK: Out of bed as tolerated FEN: Replacing electrolytes as clinically indicated Access - utilize peripheral IV. Central line if indicated. Level II follow-up Arpit Duenas MD Jun 16, 2017 14:30
--- NOTE | 2017-06-16 15:17 | PD.CARD.PN ---
Subjective Subjective Remarks Post-op, extubated, doing well Objective Medications Current Medications Medications (Trade) Dose Ordered Sig/Josefina Route Start Time Stop Time Status Last Admin Acetaminophen 325 mg 325 mg Q4H PRN PO 06/14/17 22:45 (Heparin-D5W Inj) 250 ml @ 0 mls/hr TITRATE IV 06/14/17 23:00 06/14/17 23:56 (Lipitor) 80 mg HS PO 06/15/17 21:00 06/15/17 21:21 ([place] 10-325 Mg) 1 tab Q4H PRN PO 06/15/17 15:00 06/15/17 15:56 (Apresoline Inj) 10 mg Q4H PRN IV PUSH 06/15/17 17:00 (NS Flush) 2 ml BID IV FLUSH 06/16/17 21:00 Sodium Chloride 2 ml 2 ml UNSCH PRN IV FLUSH 06/16/17 11:30 Clevidipine 50 ml @ 0 mls/hr TITRATE IV 06/16/17 11:30 (Lr 1000 ml Inj) 500 ml @ 500 mls/hr Q1H PRN IV 06/16/17 11:24 (Aspirin Chew) 81 mg DAILY PO 06/17/17 09:00 (Protonix) 40 mg DAILY@06 PO 06/17/17 06:00 (Cordarone) 400 mg Q8HR PO 06/16/17 14:00 (Tylenol) 650 mg Q4H PRN PO 06/16/17 11:30 (Tylenol Supp) 650 mg Q4H PRN RECTAL 06/16/17 11:30 (Ofirmev Inj) 1,000 mg Q6H IV 06/16/17 14:00 06/17/17 08:01 06/16/17 13:15 (Percocet 5-325 Mg) 1 tab Q3H PRN PO 06/16/17 11:30 (Zofran Inj) 4 mg Q6H PRN IV PUSH 06/16/17 11:30 (Apresoline Inj) 10 mg Q4H PRN IV 06/16/17 11:30 Metoprolol Tartrate 2.5 mg 2.5 mg Q1H PRN IV PUSH 06/16/17 11:30 Potassium Chloride 100 ml @ 50 mls/hr UNSCH PRN IV 06/16/17 11:30 06/16/17 13:14 Potassium Chloride 100 ml @ 50 mls/hr UNSCH PRN IV 06/16/17 11:30 Potassium Chloride 100 ml @ 50 mls/hr UNSCH PRN IV 06/16/17 11:30 Magnesium Sulfate 2 gm/Sodium Chloride 104 ml @ 100 mls/hr UNSCH PRN IV 06/16/17 11:30 Magnesium Sulfate 2 gm/Sodium Chloride 104 ml @ 50 mls/hr UNSCH PRN IV 06/16/17 11:30 (Calcium Chloride Inj/NS Inj) 110 ml @ 100 mls/hr UNSCH PRN IV 06/16/17 11:30 Calcium Chloride 0.5 gm 0.5 gm UNSCH PRN IV 06/16/17 11:30 (NovoLIN R (IV INFUSION)/NS Inj) 100 ml @ 0 mls/hr TITRATE IV 06/16/17 11:30 Dextrose 50 ml 50 ml UNSCH PRN IV PUSH 06/16/17 11:30 (Ancef 2 Gm Premix) 50 ml @ 100 mls/hr Q8H IV 06/16/17 16:00 06/18/17 00:29 (Morphine Inj) 2 mg Q3H PRN IV PUSH 06/16/17 14:30 Vital Signs / I&O Vital Signs Date Time Temp Pulse Resp B/P Pulse Ox O2 Delivery O2 Flow Rate FiO2 06/16/17 13:00 97 Nasal Cannula 4 06/16/17 13:00 97 Nasal Cannula 4.00 06/16/17 12:10 95 60 06/16/17 07:00 77 06/16/17 03:00 98.0 91 18 124/59 96 118/78 06/16/17 03:00 57 06/15/17 23:00 97.9 88 18 130/59 95 120/75 06/15/17 23:00 85 06/15/17 19:00 87 06/15/17 19:00 98.0 83 18 96 158/86 06/15/17 19:00 97 Room Air I/O 06/15/17 06/15/17 06/15/17 06/16/17 06/16/17 06/16/17 07:00 15:00 23:00 07:00 15:00 23:00 Intake Total 837 ml 500 ml 742 ml Output Total 600 ml 450 ml 1200 ml Balance 237 ml 50 ml -458 ml Intake Oral 240 ml 360 ml 600 ml IV Total 597 ml 140 ml 142 ml Output Urine Total 600 ml 450 ml 1200 ml # Bowel Movements 1 0 Physical Exam GENERAL: NAD, AAOx3 SKIN: Warm and dry. HEAD: Atraumatic. Normocephalic. EYES: Pupils equal and round. No scleral icterus. No injection or drainage. ENT: No nasal bleeding or discharge. Mucous membranes pink and moist. NECK: Trachea midline. No JVD. CARDIOVASCULAR: Regular rate and rhythm. No murmurs noted. Sternotomy with wound vac RESPIRATORY: No accessory muscle use. Decreased breath sounds bilaterally GASTROINTESTINAL: Abdomen soft, non-tender, nondistended. Hepatic and splenic margins not palpable. MUSCULOSKELETAL: Extremities without clubbing, cyanosis, or edema. No obvious deformities. Right femoral sheath A-line. No hematoma noted. Distal pulses intact 2+. NEUROLOGICAL: Awake and alert. No obvious cranial nerve deficits. Motor grossly within normal limits. Five out of 5 muscle strength in the arms and legs. Normal speech. PSYCHIATRIC: Appropriate mood and affect; insight and judgment normal. Laboratory Laboratory Tests Test 06/15/17 06/15/17 06/16/17 15:30 21:15 03:30 Nasal Screen MRSA (PCR) MRSA NOT DETECTED Activated Partial 45.0 SEC Thromboplast Time White Blood Count 9.5 TH/MM3 Red Blood Count 4.58 MIL/MM3 Hemoglobin 14.8 GM/DL Hematocrit 41.7 % Mean Corpuscular Volume 91.1 FL Mean Corpuscular Hemoglobin 32.3 PG Mean Corpuscular Hemoglobin 35.5 % Concent Red Cell Distribution Width 12.8 % Platelet Count 172 TH/MM3 Mean Platelet Volume 7.9 FL Sodium Level 139 MEQ/L Potassium Level 3.6 MEQ/L Chloride Level 105 MEQ/L Carbon Dioxide Level 28.4 MEQ/L Anion Gap 6 MEQ/L Blood Urea Nitrogen 13 MG/DL Creatinine 0.69 MG/DL Estimat Glomerular Filtration 123 ML/MIN Rate Random Glucose 105 MG/DL Calcium Level 8.4 MG/DL Assessment and Plan Problem List: (1) STEMI (ST elevation myocardial infarction) (2) CAD (coronary artery disease) (3) Multi-vessel coronary artery stenosis (4) Obese (5) S/P CABG x 3 Assessment and Plan 1) Presenting with EKG changes concerning for a STEMI During the procedure was found to have MVCAD, including multiple lesions in the RCA and Left Main disease (IVUS area 4.1) No true occlusions, most likely the PDA lesion recannulated with heparin Chest pain free, hemodynamically and electrically stable at the time 2) CABGx3 POD #0 LEAVITT to LAD SVG to OM SVG to PDA 3) Con't ASA/Statin/Amio Will plan to add on BB when possible Problem Qualifiers (1) STEMI (ST elevation myocardial infarction): Qualified Code: I21.3 - ST elevation myocardial infarction (STEMI), unspecified artery Moreno Castellanos DO Jun 16, 2017 15:17
[2017-06-16] MEDS: oxyCODONE/ACETAMINOPHEN 5 MG/325 MG TAB PO PRN ×2 (15:46→21:16)
[2017-06-16] MEDS: MORPHINE SULFATE 4 MG/ML INJ IV PUSH PRN ×2 (15:59→19:21)
[2017-06-16] MEDS: ceFAZolin 2 GM PREMIX 50 ML IV SCH (16:00)
[2017-06-16] MEDS: AMIODARONE 200 MG TAB PO SCH ×2 (16:00→21:15)
[2017-06-16] MEDS ORDERED: MORPHINE SULFATE 4 MG/ML INJ IV PUSH ONE (16:45)
[2017-06-16] MEDS ORDERED: hydrALAZINE HCL 20 MG/ML VIAL IV PUSH ONE (16:45)
[2017-06-16] MEDS: RESP: ALBUTEROL 2.5 MG/IPRATROPIUM 0.5 MG NEB (SCH) NEB ×2 (16:45→21:59)
[2017-06-16] MEDS: ATORVASTATIN 80 MG TAB PO SCH (21:16)
[2017-06-17] VITALS (13 sets, daily range): BP systolic 96–158; BP diastolic 53–79; PULSE 84–108; RESP 14–19; TEMP 97.8–98.6; O2SAT 91–99
[2017-06-17] MEDS: ceFAZolin 2 GM PREMIX 50 ML IV SCH ×4 (00:05→23:14)
[2017-06-17] MEDS: ACETAMINOPHEN 1000 MG/100 ML VIAL IV SCH ×2 (02:09→08:00)
[2017-06-17] MEDS: RESP: ALBUTEROL 2.5 MG/IPRATROPIUM 0.5 MG NEB (SCH) NEB ×4 (03:28→20:05)
[2017-06-17] MEDS: MORPHINE SULFATE 4 MG/ML INJ IV PUSH PRN ×2 (05:05)
[2017-06-17 05:07] LABS: HEMATOCRIT 38.3 % (39.0-51.0); MEAN CELL VOLUME 92.7 FL (80.0-100.0); MEAN CORPUSCULAR HEMOGLOBIN 31.6 PG (27.0-34.0); MEAN CORPUSCULAR HGB CONC 34.1 % (32.0-36.0); PLATELET COUNT 169 TH/MM3 (150-450); RED BLOOD COUNT 4.13 MIL/MM3 (4.50-5.90); RED CELL DISTRIBUTION WIDTH 12.8 % (11.6-17.2); REVIEW FLAG FINAL; WHITE BLOOD COUNT 15.3 TH/MM3 (4.0-11.0)
--- NOTE | 2017-06-17 05:11 | RADRPT ---
EXAM DATE/TIME: 06/17/2017 04:11 [facility] COMPARISON: CHEST SINGLE AP, June 16, 2017, 12:11. INDICATIONS : Post CABG. MEDICAL HISTORY : None. SURGICAL HISTORY : CABG. ENCOUNTER: Subsequent ACUITY: 4 - 6 days PAIN SCORE: Non-responsive. LOCATION: Bilateral chest FINDINGS: The ET tube and NG tube have been removed. The left-sided chest remains in place. There is no pneumot horax. There is some mild atelectasis in the left lung base and right upper lung. Otherwise, lungs ar e grossly clear. The heart size is stable. The bony structures are stable.. CONCLUSION: Mild left lower lung and right upper lung atelectasis. Dannie Bowles MD on June 17, 2017 at 5:09 Board Certified Radiologist. This report was verified electronically.
[2017-06-17] MEDS: PANTOPRAZOLE SOD 40 MG DELAYED RELEASE TAB PO SCH (05:53)
[2017-06-17] MEDS: AMIODARONE 200 MG TAB PO SCH ×3 (05:53→22:24)
[2017-06-17 05:58] LABS: BICARBONATE 30.4 MEQ/L (21.0-32.0); POTASSIUM 4.4 MEQ/L (3.5-5.1)
[2017-06-17] MEDS: ACETAMINOPHEN/HYDROcodone 325 MG/10 MG TAB PO PRN ×4 (07:51→23:13)
[2017-06-17] MEDS: ASPIRIN 81 MG CHEW TAB PO SCH (07:51)
[2017-06-17] MEDS: SODIUM CHLORIDE 0.9% FLUSH 10 ML FLUSH IV FLUSH SCH ×2 (07:52→21:00)
--- NOTE | 2017-06-17 08:14 | HHI.CCPN ---
Subjective Remarks/Hospital Course 46 year old male presents with a history of chest pressure that he reports began 40-50 minutes prior to arrival. He reports having associated shortness of breath. He reports having an aching sensation that radiates up into the left axilla. And he also reports having diaphoresis. He denies having any nausea or vomiting. He has had a single stent placed in his RCA at 2008. He was emergently taken to cardiac catheter lab, where he was found to have a left main disease as well as multiple lesions of the RCA, Dr. Woods offered IABP however patient refused. Patient agreed to undergo CABG procedure this week. 06/15: Afebrile. Hemodynamically stable. Denies chest pain. Plan for CABG tomorrow with Dr. Deshpande. Requesting no fentanyl. 06/16: Afebrile. Status post CABG 3 EVH from left lower extremity with good results. Extubated. Hemodynamic stable. Off all drips. Subjective 06/17: Afebrile. Currently sitting in chair. Morphine gives him some relief. He states the oxycodone/acetaminophen tablets do not provide much relief. Requesting [place]. Even though this has a lower narcotic than Percocets Objective Vital Signs Date Time Temp Pulse Resp B/P Pulse Ox O2 Delivery O2 Flow Rate FiO2 06/17/17 05:20 14 06/17/17 04:00 103 06/17/17 04:00 98.6 112/73 94 06/16/17 21:59 Nasal Cannula 2.00 06/16/17 12:10 60 Intake and Output 06/16/17 06/16/17 06/17/17 08:00 16:00 00:00 Intake Total 742 ml 2134 ml Output Total 1200 ml 2050 ml Balance -458 ml 84 ml Result Diagram: 06/17/17 0400 06/17/17 0400 Imaging \ Last Impressions Chest X-Ray 06/17/17 0500 Signed Impressions: Service Date/Time: May 04:11 - CONCLUSION: Mild left lower lung and right upper lung atelectasis. Dannie Bowles MD Lower Extremity Ultrasound 06/15/17 0000 Signed Impressions: Service Date/Time: Thursday, June 15, 2017 11:25 - CONCLUSION: Normal examination. Lev Dalal MD Carotid Artery Ultrasound 06/15/17 0000 Signed Impressions: Service Date/Time: Thursday, June 15, 2017 11:07 - CONCLUSION: No hemodynamically significant stenosis in either carotid artery. Raghav Banks MD Objective Remarks GENERAL: 46-year-old male, sitting up in chair in no acute distress SKIN: Cool left lower extremity otherwise well perfused and dry. HEAD: Normocephalic. EYES: No scleral icterus. No injection or drainage. NECK: Supple, trachea midline. No JVD or lymphadenopathy. CARDIOVASCULAR: Regular rate and rhythm S1, S2 no S4. Without murmurs, gallops , or rubs. RESPIRATORY: Breath sounds equal bilaterally. No accessory muscle use. Mediastinal/left chest tube clean dry and intact. GASTROINTESTINAL: Abdomen soft, non-tender, nondistended. NEURO: Cranial nerves II through XII grossly intact. Strength is equal and symmetric. Normal sensation EXTREMITIES: Left lower extremity covered with [place] bandage. Right lower extremity LILY hose Urinary Catheter: Yes Assessment to: Remove Vascular Central Line Catheter: Yes Assessment to: Continue Date of Insertion: Jun 16, 2017 Line: Central Venous Catheter Side: Right Location: Internal, Jugular A/P Assessment and Plan Neuro/Psych: Anxiety disorder NOS Acetaminophen 325 mg every 4 hours when necessary for fever and pain 1-2 Currently on oxycodone/acetaminophen 5/325 1 tablet every 4 hours as needed pain 1-5 Morphine 2 g IV every 2 hours when necessary breakthrough pain Ofirmev 1 g IV every 6 hours 4 dosages has been completed CV: Postop day #1 CABG 3 LEAVITT to LAD, SVG to OM and PDA with left lower extremity EVH. - Dr. Deshpande Coronary artery disease Dyslipidemia Hypertension EBL 250. Cell Saver 750. Urine output 900. Crystalloid 3500. Cardiac catheterization revealed 70% left main obstruction, 50% proximal LAD, 30 % proximal circumflex, 70% RCA. 2-dimensional echocardiogram revealed EF about 50%. Normal LV function. Trace TR. Continue aspirin 81 mg by mouth daily for coronary disease. Continue atorvastatin 80 milligrams by mouth daily for dyslipidemia Continue amiodarone 400 mg by mouth every 8 hours for arrhythmia Resp: Nasal cannula to maintain saturations greater than or equal to 92% Incentive spirometry while awake Currently on 3 L Mediastinal/left chest tube -20 cm H2O 500 cc SS since surgery Chest x-ray 06/17 revealed right upper lobe/left lower lobe atelectasis. GI: Advance diet per CT surgery Pantoprazole 40 mg by mouth daily for GI prophylaxis Bowel regimen per CT surgery : [place] catheter currently not indicated Endo: Insulin drip has been discontinued. Maintain strict euglycemia. Renal: Monitor urine output Accurate I's and O's Creatinine currently within normal limits Heme: Leukocytosis Hemoglobin currently within normal limits Follow-up CBC in AM. ID: Ancef 2 g IV every 8 hours [address] surgery Monitor for signs and symptoms of infection MSK: Out of bed as tolerated FEN: Replacing electrolytes as clinically indicated Access - utilize peripheral IV. Central line if indicated. Level II follow-up Arpit Duenas MD Jun 17, 2017 08:14
[2017-06-17] MEDS: RESP: ALBUTEROL 2.5 MG/IPRATROPIUM 0.5 MG NEB (PRN) NEB (08:35)
[2017-06-17] MEDS ORDERED: PILL SPLITTER OTHER PRN (09:00)
[2017-06-17] MEDS: METOPROLOL TARTRATE 25 MG TAB PO SCH ×2 (09:19→20:21)
--- NOTE | 2017-06-17 09:33 | PD.CARD.PN ---
Subjective Subjective Remarks Up out of bed in the chair No chest pain, no shortness of breath Objective Medications Current Medications Medications (Trade) Dose Ordered Sig/Josefina Route Start Time Stop Time Status Last Admin Acetaminophen 325 mg 325 mg Q4H PRN PO 06/14/17 22:45 (Heparin-D5W Inj) 250 ml @ 0 mls/hr TITRATE IV 06/14/17 23:00 06/14/17 23:56 (Lipitor) 80 mg HS PO 06/15/17 21:00 06/16/17 21:16 ([place] 10-325 Mg) 1 tab Q4H PRN PO 06/15/17 15:00 06/17/17 07:51 (Apresoline Inj) 10 mg Q4H PRN IV PUSH 06/15/17 17:00 (NS Flush) 2 ml BID IV FLUSH 06/16/17 21:00 06/17/17 07:52 Sodium Chloride 2 ml 2 ml UNSCH PRN IV FLUSH 06/16/17 11:30 Clevidipine 50 ml @ 0 mls/hr TITRATE IV 06/16/17 11:30 (Lr 1000 ml Inj) 500 ml @ 500 mls/hr Q1H PRN IV 06/16/17 11:24 (Aspirin Chew) 81 mg DAILY PO 06/17/17 09:00 06/17/17 07:51 (Protonix) 40 mg DAILY@06 PO 06/17/17 06:00 06/17/17 05:53 (Cordarone) 400 mg Q8HR PO 06/16/17 14:00 06/17/17 05:53 (Tylenol) 650 mg Q4H PRN PO 06/16/17 11:30 (Tylenol Supp) 650 mg Q4H PRN RECTAL 06/16/17 11:30 (Percocet 5-325 Mg) 1 tab Q3H PRN PO 06/16/17 11:30 06/16/17 21:16 (Zofran Inj) 4 mg Q6H PRN IV PUSH 06/16/17 11:30 06/16/17 21:31 (Apresoline Inj) 10 mg Q4H PRN IV 06/16/17 11:30 Metoprolol Tartrate 2.5 mg 2.5 mg Q1H PRN IV PUSH 06/16/17 11:30 06/17/17 00:05 Potassium Chloride 100 ml @ 50 mls/hr UNSCH PRN IV 06/16/17 11:30 06/16/17 13:14 Potassium Chloride 100 ml @ 50 mls/hr UNSCH PRN IV 06/16/17 11:30 Potassium Chloride 100 ml @ 50 mls/hr UNSCH PRN IV 06/16/17 11:30 Magnesium Sulfate 2 gm/Sodium Chloride 104 ml @ 100 mls/hr UNSCH PRN IV 06/16/17 11:30 Magnesium Sulfate 2 gm/Sodium Chloride 104 ml @ 50 mls/hr UNSCH PRN IV 06/16/17 11:30 06/17/17 06:46 (Calcium Chloride Inj/NS Inj) 110 ml @ 100 mls/hr UNSCH PRN IV 06/16/17 11:30 06/16/17 16:57 Calcium Chloride 0.5 gm 0.5 gm UNSCH PRN IV 06/16/17 11:30 (NovoLIN R (IV INFUSION)/NS Inj) 100 ml @ 0 mls/hr TITRATE IV 06/16/17 11:30 Dextrose 50 ml 50 ml UNSCH PRN IV PUSH 06/16/17 11:30 (Ancef 2 Gm Premix) 50 ml @ 100 mls/hr Q8H IV 06/16/17 16:00 06/18/17 00:29 06/17/17 07:50 (Morphine Inj) 2 mg Q3H PRN IV PUSH 06/16/17 14:30 06/17/17 05:05 (Lopressor) 12.5 mg Q12HR PO 06/17/17 09:00 06/17/17 09:19 (Pill Splitter) 1 ea UNSCH PRN OTHER 06/17/17 09:00 Vital Signs / I&O Vital Signs Date Time Temp Pulse Resp B/P Pulse Ox O2 Delivery O2 Flow Rate FiO2 06/17/17 08:51 16 06/17/17 08:35 97 Nasal Cannula 2.00 06/17/17 07:00 98.1 108 18 117/79 97 120/74 06/17/17 07:00 108 06/17/17 07:00 97 Nasal Cannula 2.00 06/17/17 05:20 14 06/17/17 04:00 103 06/17/17 04:00 98.6 105 14 112/73 94 06/17/17 02:35 14 06/16/17 23:27 108 06/16/17 23:26 98.6 108 14 111/67 96 Automatic Cuff 06/16/17 22:15 14 06/16/17 21:59 98 Nasal Cannula 2.00 06/16/17 20:00 96 Nasal Cannula 2.00 06/16/17 19:00 98.4 116 16 120/78 96 122/82 06/16/17 19:00 114 06/16/17 15:00 117 06/16/17 15:00 97.5 108 20 97 115/73 06/16/17 13:00 97 Nasal Cannula 4 06/16/17 13:00 97 Nasal Cannula 4.00 06/16/17 13:00 96 Nasal Cannula 4.00 06/16/17 12:10 95 60 06/16/17 12:05 97.1 81 17 95/58 93 113/51 06/16/17 12:05 95 Mechanical Ventilator 50 06/16/17 12:05 50 I/O 06/16/17 06/16/17 06/16/17 06/17/17 06/17/17 06/17/17 07:00 15:00 23:00 07:00 15:00 23:00 Intake Total 742 ml 2134 ml 2290 ml Output Total 1200 ml 2050 ml 1950 ml Balance -458 ml 84 ml 340 ml Intake Oral 600 ml 1490 ml IV Total 142 ml 2134 ml 800 ml Output Urine Total 1200 ml 1650 ml 1750 ml Gastric Drainage Total 100 ml Chest Tube Drainage Total 300 ml 200 ml # Bowel Movements 0 0 0 Physical Exam GENERAL: NAD, AAOx3 SKIN: Warm and dry. HEAD: Atraumatic. Normocephalic. EYES: Pupils equal and round. No scleral icterus. No injection or drainage. ENT: No nasal bleeding or discharge. Mucous membranes pink and moist. NECK: Trachea midline. No JVD. CARDIOVASCULAR: Regular rate and rhythm. No murmurs noted. Sternotomy with wound vac RESPIRATORY: No accessory muscle use. Decreased breath sounds bilaterally GASTROINTESTINAL: Abdomen soft, non-tender, nondistended. Hepatic and splenic margins not palpable. MUSCULOSKELETAL: Extremities without clubbing, cyanosis, or edema. No obvious deformities. Right femoral sheath A-line. No hematoma noted. Distal pulses intact 2+. NEUROLOGICAL: Awake and alert. No obvious cranial nerve deficits. Motor grossly within normal limits. Five out of 5 muscle strength in the arms and legs. Normal speech. PSYCHIATRIC: Appropriate mood and affect; insight and judgment normal. Laboratory Laboratory Tests Test 06/17/17 04:00 White Blood Count 15.3 TH/MM3 Red Blood Count 4.13 MIL/MM3 Hemoglobin 13.1 GM/DL Hematocrit 38.3 % Mean Corpuscular Volume 92.7 FL Mean Corpuscular Hemoglobin 31.6 PG Mean Corpuscular Hemoglobin 34.1 % Concent Red Cell Distribution Width 12.8 % Platelet Count 169 TH/MM3 Mean Platelet Volume 7.7 FL Sodium Level 140 MEQ/L Potassium Level 4.4 MEQ/L Chloride Level 104 MEQ/L Carbon Dioxide Level 30.4 MEQ/L Anion Gap 6 MEQ/L Blood Urea Nitrogen 9 MG/DL Creatinine 0.68 MG/DL Estimat Glomerular Filtration 125 ML/MIN Rate Random Glucose 118 MG/DL Calcium Level 8.3 MG/DL Magnesium Level 2.0 MG/DL Assessment and Plan Problem List: (1) STEMI (ST elevation myocardial infarction) (2) CAD (coronary artery disease) (3) Multi-vessel coronary artery stenosis (4) Obese (5) S/P CABG x 3 Assessment and Plan 1) Presenting with EKG changes concerning for a STEMI During the procedure was found to have MVCAD, including multiple lesions in the RCA and Left Main disease (IVUS area 4.1) No true occlusions, most likely the PDA lesion recannulated with heparin Chest pain free, hemodynamically and electrically stable at the time, CT surgery consulted 2) CABGx3 POD #1 LEAVITT to LAD SVG to OM SVG to PDA 3) Con't ASA/Statin/Amio Started on BB 4) Atelectasis on CXR IS with instructions 5) Radial arterial line can be removed 6) On discharge, can follow up with Dr. Rodriguez as he has seen him before (not Jake ) or myself Problem Qualifiers (1) STEMI (ST elevation myocardial infarction): Qualified Code: I21.3 - ST elevation myocardial infarction (STEMI), unspecified artery Moreno Castellanos DO Jun 17, 2017 09:33
[2017-06-17] MEDS ORDERED: BISACODYL 10 MG SUPP RECTAL PRN (10:00)
[2017-06-17] MEDS ORDERED: SOD PHOSPHATE/SOD BIPHOSPHATE (ADULT) ENEMA 133ML RECTAL PRN (10:00)
[2017-06-17] MEDS: INSULIN ASPART SUPPLEMENTAL SCALE SQ SCH ×4 (10:00→22:00)
[2017-06-17] MEDS ORDERED: DEXTROSE 50% IN WATER 50 ML VIAL(D50) IV PRN (10:00)
[2017-06-17] MEDS ORDERED: GLUCAGON 1 MG/ML VIAL OTHER PRN (10:00)
[2017-06-17] MEDS: MAGNESIUM HYDROXIDE SUSP 30 ML CUP PO SCH (11:37)
[2017-06-17] MEDS: DOCUSATE SODIUM 100 MG CAP PO SCH ×2 (11:37→20:17)
[2017-06-17] MEDS: KETOROLAC TROMETHAMINE 30 MG/ML (IVP) VIAL IV PUSH PRN (11:38)
[2017-06-17] MEDS ORDERED: METOPROLOL TARTRATE 25 MG TAB PO ONE (13:45)
--- NOTE | 2017-06-17 13:47 | PD.CAR.PN ---
CVT Progress Note CVT: POD #: 1 Subjective/Hospital Course: 46/ male presented to ED with chest pain, hx of previous TX in 2008, ecg changes in inferior leads, recent neg stress test in 2016 neg . Ruled in for STEMI. Pt underwent cardiac cath by Dr Castellanos found to have multivessel disease , including left main disease 70% , EF 45% . PMH: CAD/TX, ETOH, HTN, anxiety , GERD surgery: CABG x 3, LEAVITT to LAD - good, SVG to OM - good, SVG to PDA - good, EVH 06/16/17 extubated after surgery crystalloid 3500cc, 750cc cell saver, EBL 250cc 06/17 up in chair, slightly tachycardic, BB started, gentle diuresis on ASA, statin pulm toileting , OOB , weaned off insulin gtt will transfer to stepdown Objective: Vital Signs Date Time Temp Pulse Resp B/P Pulse Ox O2 Delivery O2 Flow Rate FiO2 06/17/17 13:27 18 06/17/17 11:00 99 Nasal Cannula 06/17/17 11:00 97.9 106 18 119/53 99 Arterial Line 06/17/17 11:00 105 06/17/17 10:00 99 Nasal Cannula 1.00 06/17/17 08:51 16 06/17/17 08:35 97 Nasal Cannula 2.00 06/17/17 07:00 97.8 93 16 133/79 96 158/65 06/17/17 07:00 98.1 108 18 117/79 97 120/74 06/17/17 07:00 108 06/17/17 07:00 97 Nasal Cannula 2.00 06/17/17 05:20 14 06/17/17 04:00 103 06/17/17 04:00 98.6 105 14 112/73 94 06/17/17 02:35 14 06/16/17 23:27 108 06/16/17 23:26 98.6 108 14 111/67 96 Automatic Cuff 06/16/17 22:15 14 06/16/17 21:59 98 Nasal Cannula 2.00 06/16/17 20:00 96 Nasal Cannula 2.00 06/16/17 19:00 98.4 116 16 120/78 96 122/82 06/16/17 19:00 114 06/16/17 15:00 117 06/16/17 15:00 97.5 108 20 97 115/73 Labs: Laboratory Tests Test 06/17/17 04:00 White Blood Count 15.3 TH/MM3 (4.0-11.0) Red Blood Count 4.13 MIL/MM3 (4.50-5.90) Hemoglobin 13.1 GM/DL (13.0-17.0) Hematocrit 38.3 % (39.0-51.0) Mean Corpuscular Volume 92.7 FL (80.0-100.0) Mean Corpuscular Hemoglobin 31.6 PG (27.0-34.0) Mean Corpuscular Hemoglobin 34.1 % Concent (32.0-36.0) Red Cell Distribution Width 12.8 % (11.6-17.2) Platelet Count 169 TH/MM3 (150-450) Mean Platelet Volume 7.7 FL (7.0-11.0) Sodium Level 140 MEQ/L (136-145) Potassium Level 4.4 MEQ/L (3.5-5.1) Chloride Level 104 MEQ/L (98-107) Carbon Dioxide Level 30.4 MEQ/L (21.0-32.0) Anion Gap 6 MEQ/L (5-15) Blood Urea Nitrogen 9 MG/DL (7-18) Creatinine 0.68 MG/DL (0.60-1.30) Estimat Glomerular Filtration 125 ML/MIN Rate (>89) Random Glucose 118 MG/DL (74-106) Calcium Level 8.3 MG/DL (8.5-10.1) Magnesium Level 2.0 MG/DL (1.5-2.5) Result Diagram: 06/17/17 0400 06/17/17 0400 Telemetry: NSR (1) Multi-vessel coronary artery stenosis (2) STEMI (ST elevation myocardial infarction) (3) CAD (coronary artery disease) (4) S/P CABG x 3 Plan: ASA, statin , BB OOB, ambulate keep chest tubes in place pulm toileting wean 02 as tolerated pain control CM to eval for HHC (5) Obese Plan: will need weight loss program after surgery Problem Qualifiers (1) STEMI (ST elevation myocardial infarction): Qualified Code: I21.3 - ST elevation myocardial infarction (STEMI), unspecified artery Ness Goff Jun 17, 2017 13:47
[2017-06-17] MEDS ORDERED: POTASSIUM CHLORIDE 10 MEQ CONTROLLED RELEASE TAB PO ONE (14:00)
[2017-06-17] MEDS ORDERED: FUROSEMIDE 20 MG/2 ML VIAL IV PUSH ONE (14:00)
--- NOTE | 2017-06-17 14:03 | HHI.FF ---
Face to Face Verification Diagnosis: (1) CAD (coronary artery disease) (2) Obese (3) STEMI (ST elevation myocardial infarction) (4) S/P CABG x 3 Home Health Nursing Order: Signs/symptoms of disease process Wound care and dressing changes Nursing assessment with vital signs Instructions: Heart and Vascular Surgery patients *Special attention to sternal dressing Mandatory frequency Assess and evaluation, 4 days in a row The next week 3X week 2 times a week for 4 weeks 1 time a week for 5 weeks Schedule Heart and Vascular patients for full 60 day certification period Initial visit Review Open Heart Surgery Discharge Instructions (Sternal precautions, Activity, Elastic hose, Incision care, Driving, Incentive spirometry, Smoking, [place], Work and other) Need Betadine to paint incision Medication reconciliation Importance of follow up care/ check on appointments Make calendar record temperature daily When to call [facility] nurse, review instructions, phone list Incentive Spirometry, demonstration Visit 1- Begin discharge instruction for patient family and/ or caregiver using teach back method- Signs and symptoms of infection Disease characteristics Medicines and side effects Foods and nutrition/ appetite Infection control/ hand washing/ hygiene Visit 2- Continue teaching Discharge instructions- include additional information on smoking cessation , sternal dressing (sternal vac) Visit 3- Continue teaching- Cough and deep breathing, incision monitoring. Choose my plate Visit 4- Continue teaching- Discuss limitations Discuss how they are feeling Discuss progress toward goals Remaining visits- continue teaching and monitoring PREVENA Single Use Negative Wound Therapy System Caregiver Instruction Sheet 1. A Prevena dressing system was applied to the chest incision during surgery , to promote wound healing. It works via a suction device (negative pressure wound therapy) to remove low to moderate levels of exudate (drainage) and infectious materials. We recommend that the device stay in place for up to seven days, from day of surgery. 2. Day of Surgery___7/ Day of Removal ____/ 3. The dressing should only be removed by a health memory care director. Please arrange removal of device to coincide with Home Health visit and or with Nursing staff at Rehab 4. If skin reddening or irritation of skin occurs, or excessive drainage, please notify the Cardiovascular Surgeons office at [phone]. 5. Light showering is permissible; however the pump should be disconnected and placed in safe location, where it will not get wet. The dressing should not be exposed to direct spray or submerged in water. No bath tub / shower only. Ensure the end of the tubing attached to the dressing is facing down so that water does not enter the top of the tube. 6. To remove Prevena dressing: press purple button to turn off device / remove the suction. Then disconnect the tubing from the pump. The fixation strips should be stretched away from the skin and the dressing lifted at one corner and peeled back until it has been fully removed. 7. After removal, it is ok to shower daily using liquid dial soap and clean wash cloth, rinse and pat dry, and leave incision open to air dry. For any concerns regarding Prevena dressing, and or wounds, please contact Anastasiya Petersen, patient navigator at [phone] or notify the Cardiovascular Surgeons office at [phone]. Incentive spirometry Q1 hr x 10, while awake, also use acapella device hourly whole awake Sternal Breast Bone Precautions: NO pushing or pulling, ( pt must use sternal pillow to support chest with all activities and with coughing ( takes up to 3 months breast bone to heal ) Daily incision care: ok to shower daily, no tub bath. Wash all incisions with liquid dial soap, clean wash cloth to each site, rinse and pat dry. Observe for any signs of infection, such as drainage which is dark yellow, [place], green or foul smelling. Immediately report to the surgeon any drainage from the chest incision, or legs, and for any abnormal drainage from the chest tube sites. Notify surgeon if any temp >101.5 degrees F. When specialty dressing removed/ or if you do not have one, continue to shower daily as above, then rinse and pat incision dry and paint with betadine daily x 5 days. Allow steri strips to fall off if you have any. Avoid lotions, creams, salves, oils, etc. for the first month Please see attached forms for additional instructions regarding post Open Heart specialty wound vacuum dressings. CARLIE or Prevena , Dressing to be removed by Nursing staff on __06/23/[address] Deshpande patients , please obtain CBC, BMP, PA & Lat CXR in 2 weeks, results to Dr. Deshpande ( prescription will be given) ( ) (Tele: [phone]) , Valve replacement pts will need 2decho in 2 weeks with results to Dr. Deshpande . Please obtain 2 d echo at your glass bender office if possible F/U appointment: as per [place] instructions: PCP in 2 weeks, CV surgeon 2 weeks, Test Puller 3-4 weeks For any questions regarding incisions/ dressing / meds / post op care or above Symptoms, Wednesday 8am-5pm Heart & Vascular Surgery Office ( Dr. Hawkins & Dr. Deshpande), After Hours / Nights (5pm -8am) Weekends and Holidays Please call [facility] ([facility]) Charge Nurse I have seen patient Vazquez Duvall on 06/17/17. My clinical findings support the need for the requested home health care services because: Deconditioned w/ increased weakness I certify that my clinical findings support that this patient is homebound because: Post-op weakness Ness Goff Jun 17, 2017 14:03
--- NOTE | 2017-06-17 15:08 | EKG ---
Date Performed: 06/17/2017 Time Performed: 06:09:08 PTAGE: 46 years EKG: Sinus tachycardia. Inferior infarct - age undetermined Compared to previous tracing, this i s consistent with an evolving inferior Myocardial infarction. Clinical correlation is recommended Abn ormal ECG PREVIOUS TRACING : 06/14/2017 20.22 DOCTOR: Lety Brady Interpretating Date/Time 06/17/2017 15:01:23
[2017-06-17] MEDS: oxyCODONE/ACETAMINOPHEN 5 MG/325 MG TAB PO PRN (20:18)
[2017-06-17] MEDS: SENNOSIDES 8.6 MG TAB PO SCH (20:21)
[2017-06-17] MEDS: ATORVASTATIN 80 MG TAB PO SCH (20:21)
[2017-06-17] MEDS ORDERED: ALPRAZolam 0.25 MG TAB PO PRN (21:00)
[2017-06-18] VITALS (25 sets, daily range): BP systolic 92–120; BP diastolic 58–77; PULSE 65–108; RESP 15–18; TEMP 98.1–99.2; O2SAT 93–98
[2017-06-18] MEDS: INSULIN ASPART SUPPLEMENTAL SCALE SQ SCH ×3 (02:00→20:50)
[2017-06-18] MEDS: ACETAMINOPHEN/HYDROcodone 325 MG/10 MG TAB PO PRN ×5 (02:30→20:36)
[2017-06-18] MEDS: oxyCODONE/ACETAMINOPHEN 5 MG/325 MG TAB PO PRN ×2 (05:30→23:45)
[2017-06-18] MEDS: AMIODARONE 200 MG TAB PO SCH ×3 (06:39→20:36)
[2017-06-18] MEDS: PANTOPRAZOLE SOD 40 MG DELAYED RELEASE TAB PO SCH (06:39)
[2017-06-18 07:01] LABS: AUTOMATED NEUTROPHIL # 11.4 TH/MM3 (1.8-7.7); BASOPHIL % 0.2 % (0.0-2.0); BICARBONATE 30.8 MEQ/L (21.0-32.0); EOSINOPHIL # 0.1 TH/MM3 (0-0.4); EOSINOPHIL % 0.4 % (0.0-4.0); HEMATOCRIT 32.7 % (39.0-51.0); HEMO FLAGS DIFF FINAL; LYMPH % 11.4 % (9.0-44.0); LYMPHOCYTE # 1.7 TH/MM3 (1.0-4.8); MAGNESIUM 2.1 MG/DL (1.5-2.5); MEAN CORPUSCULAR HEMOGLOBIN 31.9 PG (27.0-34.0); MEAN CORPUSCULAR HGB CONC 34.7 % (32.0-36.0); MONO % 10.6 % (0.0-8.0); NEUT % 77.4 % (16.0-70.0); PLATELET COUNT 154 TH/MM3 (150-450); RED BLOOD COUNT 3.56 MIL/MM3 (4.50-5.90); RED CELL DISTRIBUTION WIDTH 12.4 % (11.6-17.2); WHITE BLOOD COUNT 14.8 TH/MM3 (4.0-11.0)
[2017-06-18] MEDS: RESP: ALBUTEROL 2.5 MG/IPRATROPIUM 0.5 MG NEB (SCH) NEB ×2 (07:28→12:59)
[2017-06-18] MEDS: KETOROLAC TROMETHAMINE 30 MG/ML (IVP) VIAL IV PUSH PRN ×3 (08:30→23:55)
[2017-06-18] MEDS: MAGNESIUM HYDROXIDE SUSP 30 ML CUP PO SCH (08:30)
[2017-06-18] MEDS: POLYETHYLENE GLYCOL 17 GM PKG PO SCH (08:30)
[2017-06-18] MEDS: MULTIVITAMINS/MINERALS THERAPEUTIC TAB PO SCH (08:31)
[2017-06-18] MEDS: ASPIRIN 81 MG CHEW TAB PO SCH (08:31)
[2017-06-18] MEDS: METOPROLOL TARTRATE 25 MG TAB PO SCH ×2 (08:31→20:36)
[2017-06-18] MEDS: DOCUSATE SODIUM 100 MG CAP PO SCH ×2 (08:31→20:37)
[2017-06-18] MEDS: SODIUM CHLORIDE 0.9% FLUSH 10 ML FLUSH IV FLUSH SCH ×2 (08:31→20:37)
--- NOTE | 2017-06-18 11:44 | PD.CARD.PN ---
Subjective Subjective Remarks No chest pain, doing well Objective Medications Current Medications Medications (Trade) Dose Ordered Sig/Josefina Route Start Time Stop Time Status Last Admin (Tylenol) 325 mg Q4H PRN PO 06/14/17 22:45 (Lipitor) 80 mg HS PO 06/15/17 21:00 06/17/17 20:21 ([place] 10-325 Mg) 1 tab Q4H PRN PO 06/15/17 15:00 06/18/17 09:41 (NS Flush) 2 ml BID IV FLUSH 06/16/17 21:00 06/18/17 08:31 (NS Flush) 2 ml UNSCH PRN IV FLUSH 06/16/17 11:30 (Aspirin Chew) 81 mg DAILY PO 06/17/17 09:00 06/18/17 08:31 (Protonix) 40 mg DAILY@06 PO 06/17/17 06:00 06/18/17 06:39 (Cordarone) 400 mg Q8HR PO 06/16/17 14:00 06/18/17 06:39 (Tylenol) 650 mg Q4H PRN PO 06/16/17 11:30 (Percocet 5-325 Mg) 1 tab Q3H PRN PO 06/16/17 11:30 06/18/17 05:30 (Zofran Inj) 4 mg Q6H PRN IV PUSH 06/16/17 11:30 06/16/17 21:31 (Apresoline Inj) 10 mg Q4H PRN IV 06/16/17 11:30 (Lopressor Inj) 2.5 mg Q1H PRN IV PUSH 06/16/17 11:30 06/17/17 00:05 (D50w (Vial) Inj) 50 ml UNSCH PRN IV PUSH 06/16/17 11:30 (Lopressor) 12.5 mg Q12HR PO 06/17/17 09:00 06/18/17 08:31 (Pill Splitter) 1 ea UNSCH PRN OTHER 06/17/17 09:00 (Colace) 100 mg BID PO 06/17/17 10:00 06/18/17 08:31 (Theragran M Tab) 1 tab DAILY PO 06/18/17 09:00 06/18/17 08:31 (Milk Of Magnesia Liq) 30 ml DAILY PO 06/17/17 10:00 06/18/17 08:30 (Miralax) 17 gm DAILY PO 06/18/17 09:00 06/18/17 08:30 (Senokot) 8.6 mg HS PO 06/17/17 21:00 06/17/17 20:21 (Fleets Enema (Adult)) 133 ml UNSCH PRN RECTAL 06/17/17 10:00 (NovoLOG SUPPLEMENTAL SCALE) 1 02,06,10,14,18,22 SQ 06/17/17 10:00 06/17/17 14:00 (D50w (Vial) Inj) 50 ml UNSCH PRN IV 06/17/17 10:00 (Glucagon Inj) 1 mg UNSCH PRN OTHER 06/17/17 10:00 (Toradol Inj) 15 mg Q6HR PRN IV PUSH 06/17/17 10:00 06/19/17 09:59 06/18/17 08:30 (Xanax) 0.25 mg Q8H PRN PO 06/17/17 21:00 06/17/17 22:20 Vital Signs / I&O Vital Signs Date Time Temp Pulse Resp B/P Pulse Ox O2 Delivery O2 Flow Rate FiO2 06/18/17 07:30 96 06/18/17 07:30 95 Nasal Cannula 2.00 06/18/17 07:30 98.9 96 16 120/77 95 06/18/17 07:29 95 21 06/18/17 06:00 108 06/18/17 05:00 94 06/18/17 04:00 92 06/18/17 03:43 18 06/18/17 03:00 92 06/18/17 03:00 98.4 93 15 103/70 98 06/18/17 03:00 95 Nasal Cannula 2.00 28 06/18/17 02:00 90 06/18/17 01:00 88 06/18/17 00:00 92 06/17/17 23:42 96 Nasal Cannula 2.00 28 06/17/17 23:29 98.4 102 19 100/67 91 06/17/17 23:00 104 06/17/17 22:00 92 06/17/17 21:00 94 06/17/17 20:04 99 Nasal Cannula 2.00 06/17/17 20:00 100 06/17/17 19:00 91 Room Air 06/17/17 19:00 99 06/17/17 19:00 97.8 99 15 96/66 91 06/17/17 16:17 98.4 84 16 138/55 06/17/17 16:00 84 06/17/17 16:00 50 06/17/17 13:27 18 I/O 06/17/17 06/17/17 06/17/17 06/18/17 06/18/17 06/18/17 07:00 15:00 23:00 07:00 15:00 23:00 Intake Total 2290 ml 300 ml 480 ml Output Total 1950 ml 360 ml 510 ml Balance 340 ml -60 ml -30 ml Intake Oral 1490 ml 200 ml 480 ml IV Total 800 ml 100 ml Output Urine Total 1750 ml 160 ml 450 ml Stool Total 0 ml Chest Tube Drainage Total 200 ml 200 ml 60 ml # Bowel Movements 0 Physical Exam GENERAL: NAD, AAOx3 SKIN: Warm and dry. HEAD: Atraumatic. Normocephalic. EYES: Pupils equal and round. No scleral icterus. No injection or drainage. ENT: No nasal bleeding or discharge. Mucous membranes pink and moist. NECK: Trachea midline. No JVD. CARDIOVASCULAR: Regular rate and rhythm. No murmurs noted. Sternotomy with wound vac RESPIRATORY: No accessory muscle use. Decreased breath sounds bilaterally GASTROINTESTINAL: Abdomen soft, non-tender, nondistended. Hepatic and splenic margins not palpable. MUSCULOSKELETAL: Extremities without clubbing, cyanosis, or edema. No obvious deformities. Right femoral sheath A-line. No hematoma noted. Distal pulses intact 2+. NEUROLOGICAL: Awake and alert. No obvious cranial nerve deficits. Motor grossly within normal limits. Five out of 5 muscle strength in the arms and legs. Normal speech. PSYCHIATRIC: Appropriate mood and affect; insight and judgment normal. Laboratory Laboratory Tests Test 06/18/17 06:00 White Blood Count 14.8 TH/MM3 Red Blood Count 3.56 MIL/MM3 Hemoglobin 11.3 GM/DL Hematocrit 32.7 % Mean Corpuscular Volume 92.0 FL Mean Corpuscular Hemoglobin 31.9 PG Mean Corpuscular Hemoglobin 34.7 % Concent Red Cell Distribution Width 12.4 % Platelet Count 154 TH/MM3 Mean Platelet Volume 8.0 FL Neutrophils (%) (Auto) 77.4 % Lymphocytes (%) (Auto) 11.4 % Monocytes (%) (Auto) 10.6 % Eosinophils (%) (Auto) 0.4 % Basophils (%) (Auto) 0.2 % Neutrophils # (Auto) 11.4 TH/MM3 Lymphocytes # (Auto) 1.7 TH/MM3 Monocytes # (Auto) 1.6 TH/MM3 Eosinophils # (Auto) 0.1 TH/MM3 Basophils # (Auto) 0.0 TH/MM3 CBC Comment DIFF FINAL Differential Comment Sodium Level 135 MEQ/L Potassium Level 4.0 MEQ/L Chloride Level 99 MEQ/L Carbon Dioxide Level 30.8 MEQ/L Anion Gap 5 MEQ/L Blood Urea Nitrogen 15 MG/DL Creatinine 0.83 MG/DL Estimat Glomerular Filtration 99 ML/MIN Rate Random Glucose 114 MG/DL Calcium Level 8.1 MG/DL Magnesium Level 2.1 MG/DL Assessment and Plan Problem List: (1) Multi-vessel coronary artery stenosis (2) STEMI (ST elevation myocardial infarction) (3) CAD (coronary artery disease) (4) S/P CABG x 3 (5) Obese Assessment and Plan 1) Presenting with EKG changes concerning for a STEMI During the procedure was found to have MVCAD, including multiple lesions in the RCA and Left Main disease (IVUS area 4.1) No true occlusions, most likely the PDA lesion recannulated with heparin Chest pain free, hemodynamically and electrically stable at the time, CT surgery consulted 2) CABGx3 POD #2 LEAVITT to LAD SVG to OM SVG to PDA 3) Con't ASA/Statin/Amio/BB 4) Atelectasis on CXR IS with instructions 5) Radial arterial line can be removed 6) On discharge, can follow up with Dr. Rodriguez as he has seen him before (not Jake ) or myself 7) Will sign off, any problems over the weekend please call my group for covering physician Problem Qualifiers (1) STEMI (ST elevation myocardial infarction): Qualified Code: I21.3 - ST elevation myocardial infarction (STEMI), unspecified artery Moreno Castellanos DO Jun 18, 2017 11:44
[2017-06-18] MEDS ORDERED: FUROSEMIDE 20 MG/2 ML VIAL IV PUSH ONE (12:00)
--- NOTE | 2017-06-18 13:43 | PD.CAR.PN ---
CVT Progress Note CVT: POD #: 2 Subjective/Hospital Course: 46/ male presented to ED with chest pain, hx of previous OK in 2008, ecg changes in inferior leads, recent neg stress test in 2016 neg . Ruled in for STEMI. Pt underwent cardiac cath by Dr Castellanos found to have multivessel disease , including left main disease 70% , EF 45% . PMH: CAD/OK, ETOH, HTN, anxiety , GERD surgery: CABG x 3, LEAVITT to LAD - good, SVG to OM - good, SVG to PDA - good, EVH 06/16/17 extubated after surgery crystalloid 3500cc, 750cc cell saver, EBL 250cc 06/17 up in chair, slightly tachycardic, BB started, gentle diuresis on ASA, statin pulm toileting , OOB , weaned off insulin gtt will transfer to stepdown 06/17 chest tube dc without difficulty BB increased gentle diuresis OOB ambulate , on room air eval for dc on wednesday Objective: GENERAL: SKIN: Warm and dry. prevena dressing to chest , incision intact to leg HEAD: Normocephalic. EYES: No scleral icterus. No injection or drainage. NECK: Supple, trachea midline. No JVD or lymphadenopathy. CARDIOVASCULAR: Regular rate and rhythm without murmurs, gallops, or rubs. RESPIRATORY: Breath sounds equal bilaterally. No accessory muscle use. diminished in bases / chest tube removed GASTROINTESTINAL: Abdomen soft, non-tender, nondistended. MUSCULOSKELETAL: No cyanosis, or edema. BACK: Nontender without obvious deformity. No CVA tenderness. Vital Signs Date Time Temp Pulse Resp B/P Pulse Ox O2 Delivery O2 Flow Rate FiO2 06/18/17 11:30 93 Nasal Cannula 2.00 06/18/17 11:30 87 06/18/17 11:30 98.5 87 18 92/67 93 06/18/17 07:30 96 06/18/17 07:30 95 Nasal Cannula 2.00 06/18/17 07:30 98.9 96 16 120/77 95 06/18/17 07:29 95 21 06/18/17 06:00 108 06/18/17 05:00 94 06/18/17 04:00 92 06/18/17 03:43 18 06/18/17 03:00 92 06/18/17 03:00 98.4 93 15 103/70 98 06/18/17 03:00 95 Nasal Cannula 2.00 28 06/18/17 02:00 90 06/18/17 01:00 88 06/18/17 00:00 92 06/17/17 23:42 96 Nasal Cannula 2.00 28 06/17/17 23:29 98.4 102 19 100/67 91 06/17/17 23:00 104 06/17/17 22:00 92 06/17/17 21:00 94 06/17/17 20:04 99 Nasal Cannula 2.00 06/17/17 20:00 100 06/17/17 19:00 91 Room Air 06/17/17 19:00 99 06/17/17 19:00 97.8 99 15 96/66 91 06/17/17 16:17 98.4 84 16 138/55 06/17/17 16:00 84 06/17/17 16:00 50 Labs: Laboratory Tests Test 06/18/17 06:00 White Blood Count 14.8 TH/MM3 (4.0-11.0) Red Blood Count 3.56 MIL/MM3 (4.50-5.90) Hemoglobin 11.3 GM/DL (13.0-17.0) Hematocrit 32.7 % (39.0-51.0) Mean Corpuscular Volume 92.0 FL (80.0-100.0) Mean Corpuscular Hemoglobin 31.9 PG (27.0-34.0) Mean Corpuscular Hemoglobin 34.7 % Concent (32.0-36.0) Red Cell Distribution Width 12.4 % (11.6-17.2) Platelet Count 154 TH/MM3 (150-450) Mean Platelet Volume 8.0 FL (7.0-11.0) Neutrophils (%) (Auto) 77.4 % (16.0-70.0) Lymphocytes (%) (Auto) 11.4 % (9.0-44.0) Monocytes (%) (Auto) 10.6 % (0.0-8.0) Eosinophils (%) (Auto) 0.4 % (0.0-4.0) Basophils (%) (Auto) 0.2 % (0.0-2.0) Neutrophils # (Auto) 11.4 TH/MM3 (1.8-7.7) Lymphocytes # (Auto) 1.7 TH/MM3 (1.0-4.8) Monocytes # (Auto) 1.6 TH/MM3 (0-0.9) Eosinophils # (Auto) 0.1 TH/MM3 (0-0.4) Basophils # (Auto) 0.0 TH/MM3 (0-0.2) CBC Comment DIFF FINAL Differential Comment Sodium Level 135 MEQ/L (136-145) Potassium Level 4.0 MEQ/L (3.5-5.1) Chloride Level 99 MEQ/L (98-107) Carbon Dioxide Level 30.8 MEQ/L (21.0-32.0) Anion Gap 5 MEQ/L (5-15) Blood Urea Nitrogen 15 MG/DL (7-18) Creatinine 0.83 MG/DL (0.60-1.30) Estimat Glomerular Filtration 99 ML/MIN (>89) Rate Random Glucose 114 MG/DL (74-106) Calcium Level 8.1 MG/DL (8.5-10.1) Magnesium Level 2.1 MG/DL (1.5-2.5) Result Diagram: 06/18/17 0600 06/18/17 0600 Telemetry: NSR (1) Multi-vessel coronary artery stenosis (2) STEMI (ST elevation myocardial infarction) (3) CAD (coronary artery disease) (4) S/P CABG x 3 Plan: ASA, statin, BB amiodarone for heart rhythm prophylaxis / no Afib to date OOB, ambualte diuresis CM to eval for HHC (5) Obese Plan: will need weight loss program after recovery from surgery (6) Hyperlipemia Plan: on statin, heart healthy diet Problem Qualifiers (1) STEMI (ST elevation myocardial infarction): Qualified Code: I21.3 - ST elevation myocardial infarction (STEMI), unspecified artery Ness Goff Jun 18, 2017 13:43
[2017-06-18] MEDS ORDERED: DOCU1CAP39 PO (13:49)
[2017-06-18] MEDS ORDERED: AMIO200T PO (13:49)
[2017-06-18] MEDS ORDERED: OXYC1TAB63 PO (13:49)
[2017-06-18] MEDS ORDERED: ASPI81CH25 PO (13:49)
[2017-06-18] MEDS ORDERED: METO25TA3 PO (13:49)
[2017-06-18] MEDS ORDERED: THERM PO (13:49)
[2017-06-18] MEDS ORDERED: ATOR1TAB18 PO (13:49)
--- NOTE | 2017-06-18 13:55 | HHI.DS ---
Discharge Summary Admission Date Jun 14, 2017 at 21:17 Discharge Date: Jun 20, 2017 Admitting Diagnosis STEMI (1) CAD (coronary artery disease) Diagnosis: Principal (2) Obese Diagnosis: Principal (3) STEMI (ST elevation myocardial infarction) Diagnosis: Principal (4) Multi-vessel coronary artery stenosis Diagnosis: Principal (5) Hyperlipemia Diagnosis: Principal (6) S/P CABG x 3 Diagnosis: Secondary Procedures CABG x 3 06/16/17 LEAVITT to LAD - good SVG to OM - good SVG to PDA - good EVH Brief History 46/ male presented to ED with chest pain, hx of previous [place] in 2008, ecg changes in inferior leads, recent neg stress test in 2016 neg . Ruled in for STEMI. Pt underwent cardiac cath by Dr Castellanos found to have multivessel disease , including left main disease 70% , EF 45% . PMH: CAD/[place], ETOH, HTN, anxiety , GERD surgery: CABG x 3, LEAVITT to LAD - good, SVG to OM - good, SVG to PDA - good, EVH 06/16/17 extubated after surgery crystalloid 3500cc, 750cc cell saver, EBL 250cc CBC/BMP: 06/18/17 0600 06/18/17 0600 Significant Findings Laboratory Tests Test 06/15/17 06/15/17 06/16/17 06/17/17 13:58 21:15 03:30 04:00 Activated Partial 36.4 SEC 45.0 SEC Thromboplast Time (24.3-30.1) (24.3-30.1) Calcium Level 8.4 MG/DL 8.3 MG/DL (8.5-10.1) (8.5-10.1) White Blood Count 15.3 TH/MM3 (4.0-11.0) Red Blood Count 4.13 MIL/MM3 (4.50-5.90) Hematocrit 38.3 % (39.0-51.0) Random Glucose 118 MG/DL (74-106) Test 06/18/17 06:00 White Blood Count 14.8 TH/MM3 (4.0-11.0) Red Blood Count 3.56 MIL/MM3 (4.50-5.90) Hemoglobin 11.3 GM/DL (13.0-17.0) Hematocrit 32.7 % (39.0-51.0) Neutrophils (%) (Auto) 77.4 % (16.0-70.0) Monocytes (%) (Auto) 10.6 % (0.0-8.0) Neutrophils # (Auto) 11.4 TH/MM3 (1.8-7.7) Monocytes # (Auto) 1.6 TH/MM3 (0-0.9) Sodium Level 135 MEQ/L (136-145) Random Glucose 114 MG/DL (74-106) Calcium Level 8.1 MG/DL (8.5-10.1) Imaging Last Impressions Chest X-Ray 06/17/17 0500 Signed Impressions: Service Date/Time: May 04:11 - CONCLUSION: Mild left lower lung and right upper lung atelectasis. Dannie Bowles MD Lower Extremity Ultrasound 06/15/17 0000 Signed Impressions: Service Date/Time: Thursday, June 15, 2017 11:25 - CONCLUSION: Normal examination. Lev Dalal MD Carotid Artery Ultrasound 06/15/17 0000 Signed Impressions: Service Date/Time: Thursday, June 15, 2017 11:07 - CONCLUSION: No hemodynamically significant stenosis in either carotid artery. Raghav Banks MD PE at Discharge GENERAL: SKIN: Warm and dry. prevena dressing to chest, incision intact to left leg HEAD: Normocephalic. EYES: No scleral icterus. No injection or drainage. NECK: Supple, trachea midline. No JVD or lymphadenopathy. CARDIOVASCULAR: Regular rate and rhythm without murmurs, gallops, or rubs. mild edema RESPIRATORY: Breath sounds equal bilaterally. No accessory muscle use. diminished in bustillos, chest tube dc without difficulty GASTROINTESTINAL: Abdomen soft, non-tender, nondistended. MUSCULOSKELETAL: No cyanosis, or edema. BACK: Nontender without obvious deformity. No CVA tenderness. Hospital Course surgery: CABG x 3, LEAVITT to LAD - good, SVG to OM - good, SVG to PDA - good, EVH 06/16/17 extubated after surgery crystalloid 3500cc, 750cc cell saver, EBL 250cc 06/17 up in chair, slightly tachycardic, BB started, gentle diuresis on ASA, statin pulm toileting , OOB , weaned off insulin gtt will transfer to stepdown 06/18 chest tube dc without difficulty continue pulm toileting , gentle diuresis eval for dc over the weekend Pt Condition on Discharge: Good Discharge Disposition: Disch w/ Home Health Serv Discharge Instructions DIET: Follow Instructions for: Heart Healthy Diet Activities you can perform: Full Weight Bearing, Shower Only-No Bath Activities to avoid: Strenuous Activity, Driving Additional Activity Instructio: no lifting > 8 lbs or gallon of milk Follow up Referrals: Cardiology @ [facility] with Moreno Castellanos DO Surgical with Quyen Deshpande MD New Orders: BASIC METABOLIC PROF - 2 Weeks CBC NO DIFF - 2 Weeks X-RAY CHEST PA & LAT - 2 Weeks New Medications: Amiodarone (Amiodarone) 200 Mg Tab 200 MG PO Q12HR heart rhythm #28 Ref 0 TAB Aspirin (Aspirin Low Strength) 81 Mg Chew 81 MG PO DAILY Blood Clot Prevention #100 Ref 2 EA Atorvastatin (Atorvastatin) 80 Mg Tab 80 MG PO HS Cholesterol Management #30 Ref 2 TAB Docusate Sodium (Dok) 100 Mg Cap 100 MG PO BID Constipation #60 Ref 0 CAP Metoprolol Tartrate (Metoprolol Tartrate) 25 Mg Tab 12.5 MG PO Q12HR Blood Pressure Management #60 Ref 2 TAB Multiple Vitamins W/ Minerals (Thera M Plus) 1 Tab 1 TAB PO DAILY multi vitamin #30 Ref 2 TAB Oxycodone-Acetaminophen (Oxycodone-Acetaminophen) 5-325 mg Tab 1 TAB PO Q6HR PRN PAIN SCALE 3-5 #40 Ref 0 TAB Ness Goff Jun 18, 2017 13:55
[2017-06-18] MEDS ORDERED: POTASSIUM CHLORIDE 10 MEQ CAP PO ONE (14:00)
--- NOTE | 2017-06-18 14:02 | PD.CAR.PN ---
CVT Progress Note CVT: POD #: 2 Subjective/Hospital Course: 46/ male presented to ED with chest pain, hx of previous AR in 2008, ecg changes in inferior leads, recent neg stress test in 2016 neg . Ruled in for STEMI. Pt underwent cardiac cath by Dr Castellanos found to have multivessel disease , including left main disease 70% , EF 45% . PMH: CAD/AR, ETOH, HTN, anxiety , GERD surgery: CABG x 3, LEAVITT to LAD - good, SVG to OM - good, SVG to PDA - good, EVH 06/16/17 extubated after surgery crystalloid 3500cc, 750cc cell saver, EBL 250cc 06/17 up in chair, slightly tachycardic, BB started, gentle diuresis on ASA, statin pulm toileting , OOB , weaned off insulin gtt will transfer to stepdown 06/18 chest tube dc without difficulty BB increased gentle diuresis OOB ambulate , on room air eval for dc on wednesday Objective: GENERAL: SKIN: Warm and dry. prevena to chest, incision intact to leg HEAD: Normocephalic. EYES: No scleral icterus. No injection or drainage. NECK: Supple, trachea midline. No JVD or lymphadenopathy. CARDIOVASCULAR: Regular rate and rhythm without murmurs, gallops, or rubs. RESPIRATORY: Breath sounds equal bilaterally. No accessory muscle use. chest tube dc without difficulty GASTROINTESTINAL: Abdomen soft, non-tender, nondistended. MUSCULOSKELETAL: No cyanosis, or edema. BACK: Nontender without obvious deformity. No CVA tenderness. Vital Signs Date Time Temp Pulse Resp B/P Pulse Ox O2 Delivery O2 Flow Rate FiO2 06/18/17 11:30 93 Nasal Cannula 2.00 06/18/17 11:30 87 06/18/17 11:30 98.5 87 18 92/67 93 06/18/17 07:30 96 06/18/17 07:30 95 Nasal Cannula 2.00 06/18/17 07:30 98.9 96 16 120/77 95 06/18/17 07:29 95 21 06/18/17 06:00 108 06/18/17 05:00 94 06/18/17 04:00 92 06/18/17 03:43 18 06/18/17 03:00 92 06/18/17 03:00 98.4 93 15 103/70 98 06/18/17 03:00 95 Nasal Cannula 2.00 28 06/18/17 02:00 90 06/18/17 01:00 88 06/18/17 00:00 92 06/17/17 23:42 96 Nasal Cannula 2.00 28 06/17/17 23:29 98.4 102 19 100/67 91 06/17/17 23:00 104 06/17/17 22:00 92 06/17/17 21:00 94 06/17/17 20:04 99 Nasal Cannula 2.00 06/17/17 20:00 100 06/17/17 19:00 91 Room Air 06/17/17 19:00 99 06/17/17 19:00 97.8 99 15 96/66 91 06/17/17 16:17 98.4 84 16 138/55 06/17/17 16:00 84 06/17/17 16:00 50 Labs: Laboratory Tests Test 06/18/17 06:00 White Blood Count 14.8 TH/MM3 (4.0-11.0) Red Blood Count 3.56 MIL/MM3 (4.50-5.90) Hemoglobin 11.3 GM/DL (13.0-17.0) Hematocrit 32.7 % (39.0-51.0) Mean Corpuscular Volume 92.0 FL (80.0-100.0) Mean Corpuscular Hemoglobin 31.9 PG (27.0-34.0) Mean Corpuscular Hemoglobin 34.7 % Concent (32.0-36.0) Red Cell Distribution Width 12.4 % (11.6-17.2) Platelet Count 154 TH/MM3 (150-450) Mean Platelet Volume 8.0 FL (7.0-11.0) Neutrophils (%) (Auto) 77.4 % (16.0-70.0) Lymphocytes (%) (Auto) 11.4 % (9.0-44.0) Monocytes (%) (Auto) 10.6 % (0.0-8.0) Eosinophils (%) (Auto) 0.4 % (0.0-4.0) Basophils (%) (Auto) 0.2 % (0.0-2.0) Neutrophils # (Auto) 11.4 TH/MM3 (1.8-7.7) Lymphocytes # (Auto) 1.7 TH/MM3 (1.0-4.8) Monocytes # (Auto) 1.6 TH/MM3 (0-0.9) Eosinophils # (Auto) 0.1 TH/MM3 (0-0.4) Basophils # (Auto) 0.0 TH/MM3 (0-0.2) CBC Comment DIFF FINAL Differential Comment Sodium Level 135 MEQ/L (136-145) Potassium Level 4.0 MEQ/L (3.5-5.1) Chloride Level 99 MEQ/L (98-107) Carbon Dioxide Level 30.8 MEQ/L (21.0-32.0) Anion Gap 5 MEQ/L (5-15) Blood Urea Nitrogen 15 MG/DL (7-18) Creatinine 0.83 MG/DL (0.60-1.30) Estimat Glomerular Filtration 99 ML/MIN (>89) Rate Random Glucose 114 MG/DL (74-106) Calcium Level 8.1 MG/DL (8.5-10.1) Magnesium Level 2.1 MG/DL (1.5-2.5) Result Diagram: 06/18/17 0600 06/18/17 0600 Telemetry: NSR (1) Multi-vessel coronary artery stenosis (2) STEMI (ST elevation myocardial infarction) (3) CAD (coronary artery disease) (4) S/P CABG x 3 Plan: ASA, statin, BB amiodarone for heart rhythm prophylaxis / no Afib to date OOB, ambualte diuresis CM to eval for HHC (5) Obese Plan: will need weight loss program after recovery from surgery (6) Hyperlipemia Plan: on statin, heart healthy diet Problem Qualifiers (1) STEMI (ST elevation myocardial infarction): Qualified Code: I21.3 - ST elevation myocardial infarction (STEMI), unspecified artery Ness Goff Jun 18, 2017 14:02
[2017-06-18] MEDS: ATORVASTATIN 80 MG TAB PO SCH (20:36)
[2017-06-18] MEDS: SENNOSIDES 8.6 MG TAB PO SCH (20:37)
[2017-06-19] VITALS (19 sets, daily range): BP systolic 96–113; BP diastolic 63–69; PULSE 81–100; RESP 16–18; TEMP 98.1–98.7; O2SAT 95–97
[2017-06-19] MEDS: oxyCODONE/ACETAMINOPHEN 5 MG/325 MG TAB PO PRN (03:10)
[2017-06-19] MEDS: AMIODARONE 200 MG TAB PO SCH ×2 (06:11→14:31)
[2017-06-19] MEDS: PANTOPRAZOLE SOD 40 MG DELAYED RELEASE TAB PO SCH (06:11)
[2017-06-19] MEDS: ACETAMINOPHEN/HYDROcodone 325 MG/10 MG TAB PO PRN ×3 (06:11→15:59)
[2017-06-19] MEDS: INSULIN ASPART SUPPLEMENTAL SCALE SQ SCH ×2 (06:40→11:32)
--- NOTE | 2017-06-19 06:50 | RADRPT ---
EXAM DATE/TIME: 06/19/2017 06:13 [facility] COMPARISON: CHEST SINGLE AP, June 17, 2017, 4:11. INDICATIONS : Post chest tube removal. MEDICAL HISTORY : None. SURGICAL HISTORY : None. ENCOUNTER: Subsequent ACUITY: 1 week PAIN SCORE: 8/10 LOCATION: Bilateral chest FINDINGS: There has been interval removal of chest tubes. No evidence of pneumothorax. Right central line has b een removed. Slight basilar parenchymal opacity which may be some atelectasis. Accounting for rotatio n, cardiac contours are satisfactory. CONCLUSION: Line and tube removal without complication. Mild basilar atelectasis Luca Freire MD on June 19, 2017 at 6:47 Board Certified Radiologist. This report was verified electronically.
[2017-06-19] MEDS: KETOROLAC TROMETHAMINE 30 MG/ML (IVP) VIAL IV PUSH PRN (08:45)
[2017-06-19] MEDS: SODIUM CHLORIDE 0.9% FLUSH 10 ML FLUSH IV FLUSH SCH (08:46)
[2017-06-19] MEDS: MULTIVITAMINS/MINERALS THERAPEUTIC TAB PO SCH (08:46)
[2017-06-19] MEDS: ASPIRIN 81 MG CHEW TAB PO SCH (08:46)
[2017-06-19] MEDS: METOPROLOL TARTRATE 25 MG TAB PO SCH (08:46)
[2017-06-19] MEDS: MAGNESIUM HYDROXIDE SUSP 30 ML CUP PO SCH (08:47)
[2017-06-19] MEDS: DOCUSATE SODIUM 100 MG CAP PO SCH (08:47)
[2017-06-19] MEDS: POLYETHYLENE GLYCOL 17 GM PKG PO SCH (08:47)
[2017-06-19] MEDS: RESP: ALBUTEROL 2.5 MG/IPRATROPIUM 0.5 MG NEB (SCH) NEB (08:55)
[2017-06-19] MEDS ORDERED: FUROSEMIDE 40 MG/4 ML VIAL IV PUSH SCH (18:00)
== END 2017-06-19 16:14 | disposition home health service (06) | DRG 234 ==
LOC: NEPC 20:07 → NEDA 21:17 → N03A 22:37 → HCVR 06-15 12:49 → HCIN 06-17 13:00
PROVIDERS: ADMIT Thoracic Surgery (Cardiothoracic Vascular Surgery); ATTEND Thoracic Surgery (Cardiothoracic Vascular Surgery)
PROC: 4A023N7 Measurement of Cardiac Sampling and Pressure, Left Heart, Percutaneous Approach (ICD-10-PCS; principal; 2017-06-14)
PROC: B2111ZZ Fluoroscopy of Multiple Coronary Arteries using Low Osmolar Contrast (ICD-10-PCS; 2017-06-14)
PROC: B241ZZ3 Ultrasonography of Multiple Coronary Arteries, Intravascular (ICD-10-PCS; 2017-06-14)
PROC: 06BQ4ZZ Excision of Left Saphenous Vein, Percutaneous Endoscopic Approach (ICD-10-PCS; 2017-06-16)
PROC: 021109W Bypass Coronary Artery, Two Arteries from Aorta with Autologous Venous Tissue, Open Approach (ICD-10-PCS; 2017-06-16)
PROC: 5A1221Z Performance of Cardiac Output, Continuous (ICD-10-PCS; 2017-06-16)
PROC: 02100Z9 Bypass Coronary Artery, One Artery from Left Internal Mammary, Open Approach (ICD-10-PCS; 2017-06-16 07:10)
DX: I21.19 ST elevation (STEMI) myocardial infarction involving other coronary artery of inferior wall (principal); I10 Essential (primary) hypertension; J98.11 Atelectasis; F41.9 Anxiety disorder, unspecified; I25.10 Atherosclerotic heart disease of native coronary artery without angina pectoris; I25.2 Old myocardial infarction; M54.9 Dorsalgia, unspecified; K21.9 Gastro-esophageal reflux disease without esophagitis; Z95.5 Presence of coronary angioplasty implant and graft; E66.9 Obesity, unspecified; E78.5 Hyperlipidemia, unspecified
CPT/HCPCS: 36430; 71010; 76937; 80048; 80061; 81001; 82310; 82435; 82550; 82565; 82947; 82948; 83036; 83735; 83880; 84132; 84295; 84484; 84520; 85002; 85014; 85025; 85027; 85610; 85730; 86850; 86900; 86901; 86920; 87641; 92978; 93005; 93306; 93454; 93880; 93970; 93998; 94002; 94010; 94150; 94640; 94664; 94667; 94668; 96374; 96375; C1753; C1769; C1887; C1893; J0131; J0360; J0461; J0690; J1644; J1815; J1885; J1940; J2150; J2250; J2270; J2370; J2405; J2440; J2720; J2930; J3010; J3370; J3475; J3480; P9016; P9047; Q9967

== ENCOUNTER 2017-08-10 06:08 | Inpatient (IN) | payer OTHER ==
[~2017-08-10] VITALS: Ht 172.7 cm; Wt 100.5 kg
[2017-08-10] VITALS (10 sets, daily range): BP systolic 107–162; BP diastolic 58–98; PULSE 67–106; RESP 16–22; TEMP 97.6–98.6; O2SAT 98–100
[~2017-08-10 06:08] MED LIST changes: -ALPR0.25 PO; +AMIO200T PO; +ASPI81CH25 PO; +ATOR1TAB18 PO; -CIAL5TAB PO; +DOCU1CAP39 PO; -HYDR-2823 PO; -IOHEXOL 350 MG/ML 100 ML BTL (for Cath Lab) OTHER ONE; +METO25TA3 PO; +OXYC1TAB63 PO; +THERM PO
[2017-08-10] MEDS ORDERED: NITROGLYCERIN 2% OINT 1 GM PACKET TOP ONE (06:30)
[2017-08-10] MEDS ORDERED: ALUMINUM/MAGNESIUM/SIMETH 30 ML CUP PO ONE (06:30)
[2017-08-10] MEDS ORDERED: SODIUM CHLORIDE 0.9% FLUSH 10 ML FLUSH IVF PRN (06:30)
[2017-08-10] MEDS ORDERED: LIDOCAINE VISCOUS 2% SOLN 15 ML UDC PO ONE (06:30)
--- NOTE | 2017-08-10 06:35 | PD ---
HPI . Chest pain Chief Complaint: Cardiac Complaint Time Seen by Provider: 06:23 Travel History International Travel<30 days: No Contact w/Intl Traveler<30days: No Traveled to known affect area: No History of Present Illness HPI This patient presents with the chief complaint of chest pain that started about 5:00 this morning. He describes it as a gassy sensation. It radiates to the left axilla and to the left fingers. Associated with some mild diaphoresis. He states that this discomfort is very similar to discomfort that he had in May when he was found to have a STEMI. He subsequently underwent three-vessel CABG. He states that he has been doing quite well since that time until 5:00 this morning. He states that his chest discomfort is relieved when he passes gas. He states that his pain had been 8/10 but is now 0. He did take aspirin, 324 mg prior to presentation. He takes aspirin daily. He reports compliance with his medications. PFSH Past Medical History Hx Anticoagulant Therapy: Yes (ASA) Anxiety: Yes Heart Rhythm Problems: No Cancer: Yes (SKIN CANCER BACK AND FACE) Cardiac Catheterization: Yes Cardiovascular Problems: Yes (BYPASS) High Cholesterol: No Chemotherapy: Yes (2017 FACE) Chest Pain: Yes (CURRENT ADMISSION &IN 2008) Congestive Heart Failure: No Endocrine: No Genitourinary: Yes (VISECTOMY 2000) Hypertension: Yes Immune Disorder: No Musculoskeletal: No Neurologic: No Psychiatric: No Reproductive: No Respiratory: No Myocardial Infarction: Yes (01/2009,05/2017) Radiation Therapy: No Sickle Cell Disease: No Past Surgical History Abdominal Surgery: Yes (GAL BLADDER, APPENDIX) AICD: No Appendectomy: Yes Arteriovenous Shunt: No Body Medical Devices: STENT RT CORONARY ARTERY Cardiac Surgery: Yes (STENT 2008) Cholecystectomy: Yes Coronary Artery Bypass Graft: Yes (TRIPLE) Coronary Stent: Yes (2008) Ear Surgery: No Endocrine Surgery: No Eye Surgery: No Genitourinary Surgery: No Insulin Pump: No Joint Replacement: No Oral Surgery: Yes (4 TEETH PULLED, 3 ROOT CANALS) Pacemaker: No Thoracic Surgery: No Other Surgery: Yes (STENT JANUARY 2009, APPENDIX, GAL BLADDER) Social History Alcohol Use: Yes (OCC) Tobacco Use: No Substance Use: No Allergies-Medications (Allergen,Severity, Reaction): Coded Allergies: No Known Allergies (Unverified , 08/10/17) Reported Meds & Prescriptions Reported Meds & Active Scripts Active Thera M Plus (Multivitamins/Minerals Therapeutic) 1 Tab 1 Tab PO DAILY Metoprolol Tartrate 25 Mg Tab 12.5 Mg PO Q12HR Atorvastatin (Atorvastatin Calcium) 80 Mg Tab 80 Mg PO HS Aspirin Low Strength (Aspirin) 81 Mg Chew 81 Mg PO DAILY Review of Systems Except as stated in HPI: all other systems reviewed are Neg General / Constitutional: Positive: Other (mild diaphoresis) Cardiovascular: Positive: Chest Pain or Discomfort Respiratory: No: Shortness of Breath Gastrointestinal: Positive: Other (gas), No: Nausea Physical Exam Narrative GENERAL: The patient looks very comfortable. SKIN: warm/dry. HEAD: Normocephalic. Atraumatic. EYES: Pupils equal and round. No scleral icterus. No injection or drainage. ENT: No nasal bleeding or discharge. Mucous membranes pink and moist. NECK: Trachea midline. Full range of motion without pain.. CARDIOVASCULAR: Regular rate and rhythm. Heart sounds are normal. He is noted to have bowel sounds in his chest. RESPIRATORY: No accessory muscle use. Clear to auscultation. Breath sounds equal bilaterally. GASTROINTESTINAL: Abdomen soft. Diffuse mild tenderness with no guarding or rebound. Bowel sounds present. Nondistended. MUSCULOSKELETAL: No obvious deformities. NEUROLOGICAL: Awake and alert. No obvious cranial nerve deficits. Motor grossly within normal limits. Normal speech. PSYCHIATRIC: Appropriate mood and affect; insight and judgment normal. Data Data Last Documented VS Vital Signs Date Time Temp Pulse Resp B/P (MAP) Pulse Ox O2 Delivery O2 Flow Rate FiO2 08/10/17 06:09 97.6 106 16 162/98 (119) 99 Room Air Orders Orders Electrocardiogram (08/10/17 06:23) Ckmb (Isoenzyme) Profile (08/10/17 06:23) Complete Blood Count With Diff (08/10/17 06:23) Comprehensive Metabolic Panel (08/10/17 06:23) Magnesium (Mg) (08/10/17 06:23) Prothrombin Time / Inr (Pt) (08/10/17 06:23) Act Partial Throm Time (Ptt) (08/10/17 06:23) Troponin I (08/10/17 06:23) Chest, Single Ap (08/10/17 06:23) Ecg Monitoring (08/10/17 06:23) Iv Access Insert/Monitor (08/10/17 06:23) Oximetry (08/10/17 06:23) Nitroglycerin 2% Oint (Nitroglycerin 2% (08/10/17 06:30) Sodium Chloride 0.9% Flush (Ns Flush) (08/10/17 06:30) Abdomen, Flat & Upright (08/10/17 ) Al-Mag Hy-Si 40-40-4 Mg/Ml Liq (Mag-Al P (08/10/17 06:30) Lidocaine 2% Viscous (Xylocaine 2% Visco (08/10/17 06:30) MDM Medical Decision Making Medical Screen Exam Complete: Yes Emergency Medical Condition: Yes Medical Record Reviewed: Yes (status post stenting in May followed by three- vessel CABG. Other medical problems include hypertension, hyperlipidemia, coronary artery disease status post a previous MO in 2008.) Interpretation(s) EKG shows a sinus rhythm. He has Q waves inferiorly consistent with a previous inferior MO. No acute ischemic change. Differential Diagnosis Differential diagnosis of chest pain includes but is not limited to musculoskeletal pain, pulmonary embolism, acute coronary syndrome, pneumonia, pleurisy Narrative Course This patient presents with chest discomfort similar to previous MO. However, he does describe the discomfort as a gassy feeling and has bowel sounds in his chest. He also has some diffuse abdominal discomfort. He is having no pain currently. He took aspirin prior to presentation. He will be treated with a GI cocktail pending his cardiac workup. Care will be turned over to the oncoming provider at 7 AM. Diagnosis Primary Impression: Chest pain Qualified Codes: R07.9 - Chest pain, unspecified Kaelyn Galicia MD Aug 10, 2017 06:35
[2017-08-10 06:39] LABS: AUTOMATED NEUTROPHIL # 5.6 TH/MM3 (1.8-7.7); BASOPHIL # 0.1 TH/MM3 (0-0.2); BASOPHIL % 0.7 % (0.0-2.0); EOSINOPHIL # 0.5 TH/MM3 (0-0.4); HEMO FLAGS DIFF FINAL; LYMPH % 33.7 % (9.0-44.0); LYMPHOCYTE # 3.6 TH/MM3 (1.0-4.8); MEAN CELL VOLUME 89.6 FL (80.0-100.0); MEAN CORPUSCULAR HEMOGLOBIN 30.3 PG (27.0-34.0); MEAN CORPUSCULAR HGB CONC 33.8 % (32.0-36.0); MONO % 8.5 % (0.0-8.0); NEUT % 52.1 % (16.0-70.0); PLATELET COUNT 198 TH/MM3 (150-450); RED CELL DISTRIBUTION WIDTH 13.9 % (11.6-17.2); WHITE BLOOD COUNT 10.8 TH/MM3 (4.0-11.0)
[2017-08-10 06:50] LABS: APTT (PATIENT) 27.3 SEC (24.3-30.1); PROTHROMBIN TIME - PATIENT 11.3 SEC (9.8-11.6)
[2017-08-10 07:06] LABS: ANION GAP 8 MEQ/L (5-15); AST (GOT) 17 U/L (15-37); BICARBONATE 26.5 MEQ/L (21.0-32.0); BLOOD UREA NITROGEN 16 MG/DL (7-18); CHLORIDE 98 MEQ/L (98-107); GLOMERULAR FILTRATION RATE 85 ML/MIN (>89); MAGNESIUM 1.7 MG/DL (1.5-2.5); POTASSIUM 3.2 MEQ/L (3.5-5.1); SODIUM (NA) 132 MEQ/L (136-145)
[2017-08-10 07:12] LABS: ALKALINE PHOSPHATASE 130 U/L (45-117); ALT (GPT) 31 U/L (12-78); TOTAL BILIRUBIN ADULT 0.5 MG/DL (0.2-1.0)
--- NOTE | 2017-08-10 07:12 | RADRPT ---
EXAM DATE/TIME: 08/10/2017 06:51 [facility] COMPARISON: CHEST SINGLE AP, June 19, 2017, 6:13. INDICATIONS : Midsternal to left arm pit chest pains with numbness. MEDICAL HISTORY : Myocardial infarction. Congestive heart failure. SURGICAL HISTORY : CABG. ENCOUNTER: Initial ACUITY: 1 day PAIN SCORE: 8/10 LOCATION: Left chest FINDINGS: A single view of the chest demonstrates the lungs to be symmetrically aerated without evidence of mas s, infiltrate or effusion. Sternal wires are previous bypass are noted. There is mild compensated c ardiomegaly.. Osseous structures are intact. CONCLUSION: Mild compensated cardiomegaly, history of bypass. Rony Garcia MD FACR on August 10, 2017 at 7:10 Board Certified Radiologist. This report was verified electronically.
--- NOTE | 2017-08-10 07:13 | RADRPT ---
EXAM DATE/TIME: 08/10/2017 06:52 [facility] COMPARISON: No previous studies available for comparison. INDICATIONS : Mid upper abdomen pains to left upper abdomen pains. MEDICAL HISTORY : Myocardial infarction. Congestive heart failure. SURGICAL HISTORY : CABG. ENCOUNTER: Initial ACUITY: 1 day PAIN SCORE: 5/10 LOCATION: Left abdomen FINDINGS: Supine and upright views of the abdomen were performed. The abdominal bowel gas pattern is normal. No air fluid levels are seen. Surgical clips are seen in the gallbladder fossa. No abnormal masses, calcifications, or organomegaly is seen. The visualized lower lungs are clear. No evidence of free intraperitoneal gas. The osseous structures are unremarkable. CONCLUSION: Negative for an acute process. Rnoy Garcia MD FACR on August 10, 2017 at 7:11 Board Certified Radiologist. This report was verified electronically.
[2017-08-10 07:37] LABS: CREATINE KINASE 66 U/L (39-308)
[2017-08-10] MEDS ORDERED: IOHEXOL 350 MG/ML 100 ML BTL (for Cath Lab) OTHER ONE (08:04)
[2017-08-10] MEDS ORDERED: IOHEXOL 350 MG/ML 50 ML BTL (for Cath Lab) OTHER ONE (08:04)
[2017-08-10] MEDS ORDERED: ACETAMINOPHEN 500 MG CPLT PO PRN (08:15)
[2017-08-10] MEDS ORDERED: SODIUM CHLORIDE 0.9% FLUSH 10 ML FLUSH IV FLUSH PRN (08:15)
[2017-08-10] MEDS ORDERED: NITROGLYCERIN 0.4 MG SL 25 TABS/BTL SL PRN (08:15)
[2017-08-10] MEDS ORDERED: HEPARIN SODIUM - SQ 10,000 UNITS/ML VIAL SQ SCH (09:00)
[2017-08-10] MEDS ORDERED: ASPIRIN 81 MG CHEW TAB PO SCH ×2 (09:00→11:45)
[2017-08-10] MEDS: SODIUM CHLORIDE 0.9% FLUSH 10 ML FLUSH IV FLUSH SCH ×2 (09:16→21:00)
[2017-08-10] MEDS: PANTOPRAZOLE SOD 40 MG DELAYED RELEASE TAB PO SCH (09:16)
[2017-08-10] MEDS ORDERED: POTASSIUM CHLORIDE 20 MEQ CONTROLLED RELEASE TAB PO ONE (09:45)
--- NOTE | 2017-08-10 10:05 | PD ---
Data Data Last Documented VS Vital Signs Date Time Temp Pulse Resp B/P (MAP) Pulse Ox O2 Delivery O2 Flow Rate FiO2 08/10/17 07:46 69 18 98 Room Air 08/10/17 07:45 120/88 (99) 08/10/17 06:09 97.6 Orders Orders Electrocardiogram (08/10/17 06:23) Ckmb (Isoenzyme) Profile (08/10/17 06:23) Complete Blood Count With Diff (08/10/17 06:23) Comprehensive Metabolic Panel (08/10/17 06:23) Magnesium (Mg) (08/10/17 06:23) Prothrombin Time / Inr (Pt) (08/10/17 06:23) Act Partial Throm Time (Ptt) (08/10/17 06:23) Troponin I (08/10/17:23) Chest, Single Ap (08/10/17 06:23) Ecg Monitoring (08/10/17 06:23) Iv Access Insert/Monitor (08/10/17 06:23) Oximetry (08/10/17 06:23) Nitroglycerin 2% Oint (Nitroglycerin 2% (08/10/17 06:30) Sodium Chloride 0.9% Flush (Ns Flush) (08/10/17 06:30) Abdomen, Flat & Upright (08/10/17 ) Al-Mag Hy-Si 40-40-4 Mg/Ml Liq (Mag-Al P (08/10/17 06:30) Lidocaine 2% Viscous (Xylocaine 2% Visco (08/10/17 06:30) Admit Order (Ed Use Only) (08/10/17 08:01) Labs Laboratory Tests Test 08/10/17 06:30 White Blood Count 10.8 TH/MM3 Red Blood Count 4.80 MIL/MM3 Hemoglobin 14.5 GM/DL Hematocrit 43.0 % Mean Corpuscular Volume 89.6 FL Mean Corpuscular Hemoglobin 30.3 PG Mean Corpuscular Hemoglobin Concent 33.8 % Red Cell Distribution Width 13.9 % Platelet Count 198 TH/MM3 Mean Platelet Volume 8.2 FL Neutrophils (%) (Auto) 52.1 % Lymphocytes (%) (Auto) 33.7 % Monocytes (%) (Auto) 8.5 % Eosinophils (%) (Auto) 5.0 % Basophils (%) (Auto) 0.7 % Neutrophils # (Auto) 5.6 TH/MM3 Lymphocytes # (Auto) 3.6 TH/MM3 Monocytes # (Auto) 0.9 TH/MM3 Eosinophils # (Auto) 0.5 TH/MM3 Basophils # (Auto) 0.1 TH/MM3 CBC Comment DIFF FINAL Differential Comment Prothrombin Time 11.3 SEC Prothromb Time International Ratio 1.0 RATIO Activated Partial Thromboplast Time 27.3 SEC Blood Urea Nitrogen 16 MG/DL Creatinine 0.95 MG/DL Random Glucose 106 MG/DL Total Protein 8.2 GM/DL Albumin 3.7 GM/DL Calcium Level 8.8 MG/DL Magnesium Level 1.7 MG/DL Alkaline Phosphatase 130 U/L Aspartate Amino Transf (AST/SGOT) 17 U/L Alanine Aminotransferase (ALT/SGPT) 31 U/L Total Bilirubin 0.5 MG/DL Sodium Level 132 MEQ/L Potassium Level 3.2 MEQ/L Chloride Level 98 MEQ/L Carbon Dioxide Level 26.5 MEQ/L Anion Gap 8 MEQ/L Estimat Glomerular Filtration Rate 85 ML/MIN Total Creatine Kinase 66 U/L Troponin I LESS THAN 0.02 NG/ML MDM Supervised Visit with [facility]: Yes Narrative Course This is a 47-year-old male who has a history of a CABG in May who presents to the emergency department with atypical gas pains that radiate to his axilla that remind him of his last heart attack. His EKG is nonischemic and his first troponin is normal. I discussed with the patient that I recommended he stay in observation, serial cardiac enzymes and be seen by the drupal architect. Initially he was resistant but he ultimately agreed. Diagnosis Primary Impression: Chest pain Qualified Codes: R07.9 - Chest pain, unspecified Admitting Information Admitting Physician Requests: Observation Latrice Hay MD Aug 10, 2017 10:05
[2017-08-10] MEDS ORDERED: HEPARIN-D5W 25,000 U/250 ML 250 ML IV PRN (11:30)
[2017-08-10] MEDS: METOPROLOL TARTRATE 25 MG TAB PO SCH ×2 (11:45→22:00)
[2017-08-10] MEDS ORDERED: SODIUM CHLOR 0.9% 1000 ML INJ 1,000 ML IV SCH (11:55)
[2017-08-10] MEDS: NITROGLYCERIN 2% OINT 1 GM PACKET TOPICAL SCH ×2 (12:00→17:21)
[2017-08-10] MEDS ORDERED: diphenhydrAMINE HCL 50 MG CAP PO SCH (12:00)
[2017-08-10] MEDS ORDERED: DIAZEPAM 10 MG TAB PO SCH (12:00)
[2017-08-10] MEDS ORDERED: ASPIRIN 325 MG TAB PO SCH (12:00)
[2017-08-10] MEDS ORDERED: MIDAZOLAM HCL 2 MG/2 ML VIAL ONE (12:24)
[2017-08-10] MEDS ORDERED: TIROFIBAN INFUSION INJ 250 ML IV ONE (13:14)
[2017-08-10] MEDS ORDERED: HEPARIN SODIUM - IV 10,000 UNITS/10 ML VIAL ONE (13:14)
--- NOTE | 2017-08-10 13:59 | EKG ---
Date Performed: 08/10/2017 Time Performed: 06:24:32 PTAGE: 47 years EKG: Sinus rhythm INFERIOR MYOCARDIAL INFARCTION ABNORMAL ECG Compared to prior tracing no significant change PREVIOUS TRACING : 06/17/2017 06.09 DOCTOR: Katlyn Pedroza Interpretating Date/Time 08/10/2017 13:55:24
[2017-08-10] MEDS: TIROFIBAN INFUSION INJ 250 ML IV SCH (14:47)
--- NOTE | 2017-08-10 14:50 | CATHPROC ---
[email or web address] HIS Report Study Information Study Number Admission Scheduled Start Study Start [id number] Aug 10 2017 8:03AM 08/10/2017 Aug 10 2017 12:04PM [place] [facility] Cardiac Catheterization Admit Source Facility Department Emergency department [facility] - Rip Saw Operator Physician and Clinical Staff Initial Devin Rao Applied Behavior Science Specialist Charles Medina,JAQUELINE Applied Behavior Science Specialist Heide Parisi RN Recorder Avinash Serrano RCIS(BS) Scrub Nik Sandoval RT(R) Procedures Performed Procedure Location (Site) Vessel Name Angiogram LV AO Arch (A1) Aorta Angiogram LV LV Ventricle Coronary Angiograms LCA Left Coronary Coronary Angiograms RCA Right Coronary Coronary Angiograms LEAVITT-LAD Left Coronary Coronary Angiograms SVG-OM CIRC Drug Eluting Inflatio RCA Dist Right Coronary Drug Eluting Inflatio RCA Mid Right Coronary Drug Eluting Inflatio RCA Prox Right Coronary IVUS RCA Right Coronary L Heart Cath PTCA RCA Dist Right Coronary PTCA RCA Mid Right Coronary PTCA RCA Prox Right Coronary Wire insertion Fem Art (right) Femoral Art Equipment Time Material Worker Description Size Mfg Part Number Used/Scraped [id number] 13:14 [employer] WIRE, ASAHI PROWATER 180CM 180CM Used *[id number] WIRE, BALANCE MIDDLEWEIGHT [id number] 13:42 [employer] 190CM Used 190CM (SO) *[id number] TRANSDUCER, TRUWAVE [id number] 12:30 QUEEN SPRINGER * Used W/STOCKCOCK *[id number] BALLOON, 3.25 15MM EMERGE 13:34 [employer] 3.25 15MM [id number] Used MR [id number] *[id number] *[id number] 534-620T *[id number] 534-617T *[id number] 534-622T *[id number] 534-672T *[id number] 534-642T *[id number] 534-650S *[id number] 12:30 MEDLINE INDUSTRIES PACK, CCL CUSTOM * Used *[id number] 12:30 MEDLINE PACER PEN, SKIN DUAL W/ RULER * Used *[id number] BALLOON, 2.25 X 12MM [id number] 13:22 MEDTRONIC 12MM Used EUPHORA *[id number] BALLOON, 3.5 X 15MM NC [id number] 14:04 MEDTRONIC 15MM Used EUPHORA *[id number] STENT, 2.25 14 RESOLUTE [id number] 13:39 MEDTRONIC 2.25 14 Used INTEGRITY RX *[id number] STENT, 3.5 18 RESOLUTE [id number] 14:14 MEDTRONIC 3.5 18 Used INTEGRITY RX *[id number] STENT, 3.5 30 RESOLUTE [id number] 13:54 MEDTRONIC 3.5 30 Used INTEGRITY RX *[id number] 13:24 [employer] MEDICAL 30 WILL INDEFLATOR Used *[id number] 12:30 WAVE (Wireless Advanced Vehicle [employer]rification) SHEATH, FR6.5 PRELUDE 11CM FR 6.5 038ACT Used *[id number] 12:30 WAVE (Wireless Advanced Vehicle Electrification) WIRE, 3MMJ .035 180CM 180CM Used *[id number] 12:30 NAMIC MANIFOLD, 4 PORT * Used *[id number] 12:30 [employer]COMED OMNIPAQUE, 350 MG, 150ML 150ML [id number] Used 13:18 NYCOMED OMNIPAQUE, 350 MG, 150ML 150ML [id number] Used [id number] 12:30 [facility] BLANKET,WARM AIR CCL * Used *[id number] CATHETER, [place] [employer] [place] [id number] 13:25 [employer]OL[employer] Used IMAGING *[id number] Equipment Model, Serial, Lot Number and Expiration Data Description Model Number Serial Number Lot Number Expiration Date BALLOON, 3.5 X 15MM NE [id number] 12-05-2018 EUPHORA CATHETER, [place] [employer] [place] [id number] 05-28-2019 IMAGING STENT, 2.25 14 RESOLUTE [id number] 03-05-2019 INTEGRITY RX STENT, 3.5 18 RESOLUTE [id number] 03-26-2019 INTEGRITY RX STENT, 3.5 30 RESOLUTE [id number] 09-08-2018 INTEGRITY RX History: Current Medications Medication Dosage/Unit Route Frequency Last Date/Time Taken ASA Beta Susana PLAVIX History: Allergies Allergy Reaction No Known Allergies History: Risk Factors Family History of Hypertension Dyslipidemia Previous HI Previous Heart Failure Premature CAD Yes Yes No Yes No Prior Valve Prior PCI Prior PCIDate Prior CABG Prior CABGDate Surgery No Yes 01/27/2009 Yes 05/29/2017 Cerebrovascular Peripheral Artery Chronic Lung On Dialysis Diabetes Disease Disease Disease No No No No No History: Symptoms/Diagnosis Selection Items Chest pain History: Stress Tests Stress or Imaging Studies Performed No History: Other Disease Selection Items CAD HTN History: HI/CV Data Previous Cath Date 01/27/2009 History: Other Current Smoker No Labs Hgb (g/dl) Hct (%) WBC (l/cumm) Platelets (thousands) 11.60-17.00 35.00-51.00 4.00-11.00 150.00-450.00 14.5 43 10.8 198 Glucose (mg/dl) BUN (mg/dl) Creatinine (mg/dl) BUN:Creatinine (1:x) 74.00-106.00 7.00-18.00 0.50-1.30 10.00-20.00 106 16 0.9 17.8 Na (meq/l) K (meq/l) 136.00-145.00 3.50-5.10 132 3.2 INR (PTT:PT) 0.90-1.10 1 Troponin I (ng/ml) CPK (u/l) CPK-MB (ng/ML) 0.02-0.05 26.00-308.00 0.50-3.60 1.17 66 Not Drawn Medication Medication Total Dose (Bolus/Oral) Medication Total Dosage/Unit 1% XYLOCAINE 20 mL AGGRASTAT BOLUS 50 mL FENTANYL 100 mcg HEPARIN 7000 units NTG (IC) 300 mcg VERSED 2 mg Medications (Bolus/Oral) Medication Time Given Dosage/Unit Administered By Reason VERSED 08/10/2017 12:40:00 PM 1 mg Heide Parisi 1 mg VERSED given in lab by Heide Parisi, JAQUELINE in Right Antecubital via Peripheral IV. Ordered by Devin Nevarez. 1% XYLOCAINE 08/10/2017 12:41:23 PM 20 mL Devin Joseph 20 mL 1% XYLOCAINE given in lab by Devin Joseph in Right Radial via Subcutaneous. Ordered by Peter Joseph. HEPARIN 08/10/2017 1:16:04 PM 6000 units Heide Parisi 6000 units HEPARIN given in lab by Heide Parisi, RN in Right Antecubital via Peripheral IV. Order ed by Devin Joseph. AGGRASTAT BOLUS 08/10/2017 1:18:48 PM 50 mL Heide Parisi 50 mL AGGRASTAT BOLUS given in lab by Heide Parisi RN in Right Antecubital via Peripheral IV. Or dered by Devin Joseph. FENTANYL 08/10/2017 1:30:00 PM 50 mcg Heide Parisi 50 mcg FENTANYL given in lab by Heide Parisi RN in Right Antecubital via Peripheral IV. Ordered by Devin Joseph. NTG (IC) 08/10/2017 1:53:00 PM 200 mcg Devin Joseph 200 mcg NTG (IC) given in lab by Devin Joseph via Intra-coronary. Ordered by Devin Joseph. VERSED 08/10/2017 1:56:00 PM 1 mg Heide Parisi 1 mg VERSED given in lab by Heide Parisi RN in Right Antecubital via Peripheral IV. Ordered by R Devin torrez. FENTANYL 08/10/2017 1:57:00 PM 50 mcg Heide Parisi 50 mcg FENTANYL given in lab by Heide Parisi RN in Right Antecubital via Peripheral IV. Ordered by Devin Joseph. HEPARIN 08/10/2017 2:15:00 PM 1000 units Heide Parisi 1000 units HEPARIN given in lab by Heide Parisi RN in Right Antecubital via Peripheral IV. Order ed by Devin Joseph. NTG (IC) 08/10/2017 2:18:34 PM 100 mcg Devin Joseph 100 mcg NTG (IC) given in lab by Devin Joseph via Intra-coronary. Ordered by Devin Joseph. Medication (Drip) Medication Time Given Dosage/Unit Concentration/Unit Diluent (ml) Solution AGGRASTAT DRIP 08/10/2017 1:19:00 PM 0.15 mcg/kg/min 12.5 mg 250 NaCl .9 0.15 mcg/kg/min AGGRASTAT DRIP given in lab by Heide Parisi RN in Right Antecubital via Peripher al IV. Pump/Drip Flow = 18 ml/hr using NaCl .9 with a concentration of 12.5 mg in 250 ml. Ordered by Devin Joseph. IV Solutions 08/10/2017 12:20:09 PM 0 mL (IV) 500 NaCl .9 Patient arrived on IV Solutions in Right Antecubital via Peripheral IV. Pump/Drip Flow = 20 ml/hr usi ng NaCl .9. Ordered by Devin Joseph. Initial Case Assessment Cardiovascular HR Rhythm NIBP Chest Pain 83 SR 156/97 0 Edema Present Skin color Skin None Normal Warm Dry Circulatory - Right Pulses Dorsalis Pedis Femoral 1 1 Scale (0,1,2,3,4,d) Circulatory - Left Pulses Dorsalis Pedis Femoral 1 1 Scale (0,1,2,3,4,d) Circulatory - Lower Extremities Color Lower Right Color Lower Left Normal Normal Neurological State Oriented to time-place- Alert Moves all extremities person Respiration - General Respiration Rate SpO2 (%) (B/min) 23 98 Final Case Assessment Cardiovascular HR Rhythm NIBP Chest Pain 83 SR 156/97 0 Edema Present Skin color Skin None Normal Warm Dry Circulatory - Right Pulses Dorsalis Pedis Femoral 1 1 Scale (0,1,2,3,4,d) Circulatory - Left Pulses Dorsalis Pedis Femoral 1 1 Scale (0,1,2,3,4,d) Circulatory - Lower Extremities Color Lower Right Color Lower Left Normal Normal Neurological State Oriented to time-place- Alert Moves all extremities person Respiration - General Respiration Rate SpO2 (%) (B/min) 23 98 Chronological Log Time Study Chronological Log 12:19:40 Patient arrived via Bed. 12:19:41 Patient Name, D.O.B, / Armband Verified By R.N. 12:19:41 Consent signed by the physician and the patient and verified by the Rip Saw Operator staff. 12:19:43 Pre-op and post- op instructions given; patient acknowledges understanding of instructions. 12:19:57 Immediate Presedation assesment performed by physician. 12:19:58 Patient has been NPO for Less than 6Hrs. 12:19:59 Skin Breakdown- 12:20:00 Patient Warmer Placed on the Table. 12:20:08 A # 20 IV was noted in the Antecubital (right). Grade = 0 Patient arrived on IV Solutions in Right Antecubital via Peripheral IV. Pump/Drip Flow = 20 ml/ hr using NaCl .9. Ordered 12:20:09 by Devin Joseph. 12:20:09 History and physical on the chart or being dictated. Assessment: Initial Case, HR=83 BPM, Rhythm=SR, WTTH=611/97 mmhg, Chest Pain=0, Edema=None, Col or=Normal, Skin = Warm, Dry Right Pulses: Rodrigo Ped=1, Femoral=1 Left Pulses: Rodrigo Ped=1, Femoral=1 12:20:10 Lower Right Extremities: Color=Normal Lower Left Extremities: Color=Normal Neurological: State=Alert, Ox3, ARREDONDO Respiration: Resp=23 B/min, SpO2=98 % Vitals capture started with the following parameters, Patient=Adult, Interval=5 min, Initial Pr tcxqhy=819 mmHg, 12:20:59 Deflation Rate=5 mmHg, Cuff placed on Left Arm 12:21:33 HR=86 bpm, RJVV=983/107 mmhg, SpO2=98.0 %, Resp=26 B/min, Pain=0, Sharee=10, Lainez=2 12:26:36 HR=85 bpm, SLPZ=876/107 mmhg, SpO2=99.0 %, Resp=27 B/min, Pain=0, Sharee=10, Lainez=2 12:31:39 HR=84 bpm, GKPK=099/97 mmhg, SpO2=98.0 %, Resp=15 B/min, Pain=0, Sharee=10, Lainez=2 12:31:59 Pressure channel 1 zeroed. 12:34:32 Bilateral groins prepped with 2% chlorhexidine, and with a 3 min. waiting time. 12:34:48 MD paged 12:35:38 MD arrived. 12:36:30 HR=92 bpm, RLBH=264/70 mmhg, SpO2=99.0 %, Resp=22 B/min, Pain=0, Sharee=10, Lainez=2 12:36:59 Reference ECG taken 12:40:00 1 mg VERSED given in lab by Heide Parisi, JAQUELINE in Right Antecubital via Peripheral IV. Or dered by Devin Joseph. Time Out. Correct patient, correct procedure,correct physician, ,power injector loaded or not l oaded with contrast with 12:40:08 surgical team present. Time Out Concurred by MD, individual staff and [employer] MANAGER in procedure 12:40:43 Case Start 12:41:23 20 mL 1% XYLOCAINE given in lab by Jake, Devin in Right Radial via Subcutaneous. Ordered b y Sydni Josephnn. 12:41:31 Access site was Right Femoral Artery. 12:41:56 A SHEATH, FR6.5 PRELUDE 11CM FR 6.5 was advanced into the Fem Art (right) using the Percuta neous technique. 12:42:01 HR=87 bpm, WMXZ=792/105 mmhg, SpO2=98.0 %, Resp=19 B/min, Pain=0, Sharee=10, Lainez=2 A JL 4.0 INFINITI CATHETER FR 6 was advanced over a wire. OMNIPAQUE, 350 MG, 150ML 150ML was us ed for 12:42:09 injections. Recorded Pressure: Ao, HR=84, Condition=Condition 1 12:42:56 (Aorta) Ao 150/96/117 12:44:31 Catheter was removed A 3DRC INFINITI CATHETER FR 6 was advanced over a wire. OMNIPAQUE, 350 MG, 150ML 150ML was used for 12:44:34 injections. 12:44:48 The RCA was injected and visualized at various angles. OMNIPAQUE, 350 MG, 150ML 150ML used . Recorded Pressure: Ao, HR=87, Condition=Condition 1 12:45:29 (Aorta) Ao 142/90/113 12:45:55 The LEAVITT-LAD was injected and visualized at various angles. OMNIPAQUE, 350 MG, 150ML 150ML used. 12:46:34 HR=85 bpm, EEYC=565/101 mmhg, SpO2=97.0 %, Resp=31 B/min, Pain=0, Sharee=10, Lainez=2 12:47:48 Catheter was removed A JL 4.5 INFINITI CATHETER FR 6 was advanced over a wire. OMNIPAQUE, 350 MG, 150ML 150ML was us ed for 12:47:51 injections. After removing the current catheter a JL 5.0 INFINITI CATHETER FR 6 was advanced over a WIRE, 3 MMJ .035 180CM 12:50:23 180CM. 12:51:33 The LCA was injected and visualized at various angles. OMNIPAQUE, 350 MG, 150ML 150ML used . 12:51:37 HR=87 bpm, HEEV=065/97 mmhg, SpO2=96.0 %, Resp=20 B/min, Pain=0, Sharee=10, Lainez=2 12:55:00 Catheter was removed A MPA-2 INFINITI CATHETER FR 6 was advanced over a wire. OMNIPAQUE, 350 MG, 150ML 150ML was use d for 12:55:05 injections. 12:56:34 HR=87 bpm, PEYR=158/107 mmhg, SpO2=97.0 %, Resp=22 B/min, Pain=0, Sharee=10, Lainez=2 12:56:48 Catheter was removed A LCB INFINITI CATHETER FR 6 was advanced over a wire. OMNIPAQUE, 350 MG, 150ML 150ML was used for 12:58:14 injections. 13:00:02 Catheter was removed A PIGTAIL STR INFINITI CATHETER FR 6 was advanced over a wire. OMNIPAQUE, 350 MG, 150ML 150ML w as used for 13:00:38 injections. 13:01:37 HR=85 bpm, KJXH=870/103 mmhg, SpO2=97.0 %, Resp=18 B/min, Pain=0, Sharee=10, Lainez=2 Recorded Pressure: LV, HR=85, Condition=Condition 1 13:01:54 (Left Ventricle) LV 143/7/15 13:02:00 The LV was injected at 12 cc/sec for a total of 41. OMNIPAQUE, 350 MG, 150ML 150ML used. Recorded Pressure: LV, Ao, HR=86, Condition=Condition 1 13:03:31 (Left Ventricle) LV 140/5/17, (Aorta) Ao 126/83/102 13:06:32 HR=86 bpm, DQSJ=949/101 mmhg, SpO2=95.0 %, Resp=18 B/min, Pain=0, Sharee=10, Lainez=2 13:07:25 The AO Arch (A1) was injected at 12 cc/sec for a total of 40. OMNIPAQUE, 350 MG, 150ML 150M L used. 13:10:00 Catheter was removed A LCB INFINITI CATHETER FR 6 was advanced over a wire. OMNIPAQUE, 350 MG, 150ML 150ML was used for 13:11:33 injections. 13:11:35 HR=82 bpm, QCEU=182/96 mmhg, SpO2=97.0 %, Resp=20 B/min, Pain=0, Sharee=10, Lainez=2 13:14:45 The SVG-OM was injected and visualized at various angles. OMNIPAQUE, 350 MG, 150ML 150ML us ed. 13:15:20 Catheter was removed 6000 units HEPARIN given in lab by Heide Parisi RN in Right Antecubital via Peripheral IV. Ordered by Jake 13:16:04 Devin. 13:16:34 HR=85 bpm, OXKD=841/108 mmhg, SpO2=97.0 %, Resp=23 B/min, Pain=0, Sharee=10, Lainez=2 50 mL AGGRASTAT BOLUS given in lab by Heide Parisi RN in Right Antecubital via Peripheral IV. Ordered by 13:18:48 Devin Joseph. 0.15 mcg/kg/min AGGRASTAT DRIP given in lab by Heide Parisi RN in Right Antecubital via Pe ripheral IV. 13:19:00 Pump/Drip Flow = 18 ml/hr using NaCl .9 with a concentration of 12.5 mg in 250 ml. Ordered by Devin Nevarez. A HS SH GUIDE CATHETER FR 6 was advanced over a wire. OMNIPAQUE, 350 MG, 150ML 150ML was used f or 13:20:09 injections. 13:20:56 A WIRE, ASAHI PROWATER 180CM 180CM was inserted via Fem Art (right). 13:21:39 HR=83 bpm, IBIX=050/99 mmhg, SpO2=99.0 %, Resp=11 B/min, Pain=0, Sharee=10, Lainez=2 A BALLOON, 2.25 X 12MM EUPHORA 12MM was inserted over WIRE, ASAHI PROWATER 180CM 180CM via the Fem Art 13:22:29 (right). A BALLOON, 2.25 X 12MM EUPHORA 12MM over a WIRE, ASAHI PROWATER 180CM 180CM in the RCA Dist was inflated 13:23:21 using a 30 WILL INDEFLATOR at 8 will for 30 sec. A BALLOON, 2.25 X 12MM EUPHORA 12MM over a WIRE, ASAHI PROWATER 180CM 180CM in the RCA Dist was inflated 13:24:09 using a 30 WILL INDEFLATOR at 12 will for 30 sec. 13:24:55 Balloon Removed. 13:26:22 Activated Clotting Time Drawn 13:26:36 HR=84 bpm, MVJN=966/89 mmhg, SpO2=99.0 %, Resp=19 B/min, Pain=0, Sharee=10, Lainez=2 13:26:50 An CATHETER, [place] [employer] [place] IMAGING was advanced through the lesion. Images saved o [employer] IVUS hard drive 13:27:00 IVUS in progress using CATHETER, [place] [employer] [place] [place] IMAGING 50 mcg FENTANYL given in lab by Heide Parisi RN in Right Antecubital via Peripheral IV. Or dered by Jake, 13:30:00 Devin. 13:31:37 HR=75 bpm, WQJC=758/94 mmhg, SpO2=99.0 %, Resp=10 B/min, Pain=0, Sharee=10, Lainez=2 13:31:56 IVUS catheter removed A BALLOON, 3.25 15MM EMERGE MR 3.25 15MM was inserted over WIRE, ASAHI PROWATER 180CM 180CM via the 13:35:00 Fem Art (right). A BALLOON, 3.25 15MM EMERGE MR 3.25 15MM over a WIRE, ASAHI PROWATER 180CM 180CM in the RCA Dis t was 13:35:07 inflated using a 30 WILL INDEFLATOR at 9 will for 30 sec. A BALLOON, 3.25 15MM EMERGE MR 3.25 15MM over a WIRE, ASAHI PROWATER 180CM 180CM in the RCA Dis t was 13:36:35 inflated using a 30 WILL INDEFLATOR at 9 will for 30 sec. 13:36:38 HR=83 bpm, DGHU=251/106 mmhg, SpO2=98.0 %, Resp=10 B/min, Pain=0, Sharee=10, Lainez=2 A BALLOON, 3.25 15MM EMERGE MR 3.25 15MM over a WIRE, ASAHI PROWATER 180CM 180CM in the RCA Pro x was 13:37:58 inflated using a 30 WILL INDEFLATOR at 12 will for 30 sec. 13:39:12 Balloon Removed. 13:39:51 ACT (Normal Range 90-180) = 255 13:41:39 HR=80 bpm, IBES=186/100 mmhg, SpO2=99.0 %, Resp=17 B/min, Pain=0, Sharee=10, Lainez=2 13:44:08 A WIRE, BALANCE MIDDLEWEIGHT 190CM (SO) 190CM was inserted via Fem Art (right). A BALLOON, 3.25 15MM EMERGE MR 3.25 15MM was inserted over WIRE, ASAHI PROWATER 180CM 180CM via the 13:45:00 Fem Art (right). A BALLOON, 3.25 15MM EMERGE MR 3.25 15MM over a WIRE, ASAHI PROWATER 180CM 180CM in the RCA Dis t was 13:46:00 inflated using a 30 WILL INDEFLATOR at 13 will for 30 sec. 13:46:36 HR=77 bpm, VLQU=102/101 mmhg, SpO2=99.0 %, Resp=16 B/min, Pain=0, Sharee=10, Lainez=2 A BALLOON, 3.25 15MM EMERGE MR 3.25 15MM over a WIRE, ASAHI PROWATER 180CM 180CM in the RCA Dis t was 13:49:00 inflated using a 30 WILL INDEFLATOR at 13 will for 30 sec. 13:51:40 HR=78 bpm, QZBC=316/108 mmhg, SpO2=98.0 %, Resp=10 B/min, Pain=0, Sharee=10, Lainez=2 13:52:33 Wire removed 13:53:00 200 mcg NTG (IC) given in lab by Devin Joseph via Intra-coronary. Ordered by Devin Joseph. A STENT, 2.25 14 RESOLUTE INTEGRITY RX 2.25 14 was advanced through a HS SH GUIDE CATHETER FR 6 over a 13:53:05 WIRE, BALANCE MIDDLEWEIGHT 190CM (SO) 190CM. A STENT, 2.25 14 RESOLUTE INTEGRITY RX 2.25 14 was deployed using a 30 WILL INDEFLATOR at 13 will ospheres 13:53:16 for 30 seconds in the RCA Dist. 13:55:36 Delivery device removed 13:56:00 1 mg VERSED given in lab by Heide Parisi, JAQUELINE in Right Antecubital via Peripheral IV. Or dered by Devin Joseph. 13:56:39 HR=82 bpm, ZSWO=866/95 mmhg, SpO2=99.0 %, Resp=8 B/min, Pain=0, Sharee=10, Lainez=2 50 mcg FENTANYL given in lab by MraHeide figueredo RN in Right Antecubital via Peripheral IV. Or dered by Jake, 13:57:00 Devin. A STENT, 3.5 30 RESOLUTE INTEGRITY RX 3.5 30 was advanced through a HS SH GUIDE CATHETER FR 6 o reed a 13:57:19 WIRE, BALANCE MIDDLEWEIGHT 190CM (SO) 190CM. 13:57:41 Stent not deployed. Stent removed and intact. 13:59:18 A WIRE, ASAHI PROWATER 180CM 180CM was inserted via Fem Art (right). A STENT, 3.5 30 RESOLUTE INTEGRITY RX 3.5 30 was advanced through a HS SH GUIDE CATHETER FR 6 o reed a 13:59:51 WIRE, BALANCE MIDDLEWEIGHT 190CM (SO) 190CM. 14:01:36 Stent not deployed. Stent removed and intact. A STENT, 3.5 30 RESOLUTE INTEGRITY RX 3.5 30 was advanced through a HS SH GUIDE CATHETER FR 6 o reed a 14:01:40 WIRE, ASAHI PROWATER 180CM 180CM. 14:01:42 HR=77 bpm, RRGY=376/77 mmhg, Resp=14 B/min, Pain=0, Sharee=10, Lainez=2 14:03:31 Stent not deployed. Stent removed and intact. 14:06:39 HR=77 bpm, WHYO=770/91 mmhg, SpO2=93.0 %, Resp=17 B/min, Pain=0, Sharee=10, Lainez=2 A BALLOON, 3.5 X 15MM NC EUPHORA 15MM was inserted over WIRE, ASAHI PROWATER 180CM 180CM via th e Fem 14:06:50 Art (right). A BALLOON, 3.5 X 15MM NC EUPHORA 15MM over a WIRE, ASAHI PROWATER 180CM 180CM in the RCA Mid wa s 14:06:51 inflated using a 30 WILL INDEFLATOR at 13 will for 30 sec. A BALLOON, 3.5 X 15MM NC EUPHORA 15MM over a WIRE, ASAHI PROWATER 180CM 180CM in the RCA Mid wa s 14:08:00 inflated using a 30 WILL INDEFLATOR at 16 will for 30 sec. 14:09:11 Balloon Removed. 14:10:56 Activated Clotting Time Drawn A STENT, 3.5 30 RESOLUTE INTEGRITY RX 3.5 30 was advanced through a HS SH GUIDE CATHETER FR 6 o reed a 14:11:24 WIRE, BALANCE MIDDLEWEIGHT 190CM (SO) 190CM. 14:11:38 HR=78 bpm, CKLN=352/91 mmhg, Resp=15 B/min, Pain=0, Sharee=10, Lainez=2 14:12:03 Wire removed A STENT, 3.5 30 RESOLUTE INTEGRITY RX 3.5 30 was deployed using a 30 WILL INDEFLATOR at 9 atmosp heres for 40 14:12:39 seconds in the RCA Mid. 14:13:58 Delivery device removed 1000 units HEPARIN given in lab by Heide Parisi, RN in Right Antecubital via Peripheral IV. Ordered by Jake 14:15:00 Devin. 14:15:59 ACT (Normal Range 90-180) = 238 A STENT, 3.5 18 RESOLUTE INTEGRITY RX 3.5 18 was advanced through a HS SH GUIDE CATHETER FR 6 o reed a 14:16:14 WIRE, BALANCE MIDDLEWEIGHT 190CM (SO) 190CM. A STENT, 3.5 18 RESOLUTE INTEGRITY RX 3.5 18 was deployed using a 30 WILL INDEFLATOR at 14 atmos pheres for 14:16:23 30 seconds in the RCA Prox. 14:17:26 HR=77 bpm, WSER=770/85 mmhg, SpO2=96.0 %, Resp=15 B/min, Pain=0, Sharee=10, Lainez=2 14:17:43 Delivery device removed 14:18:34 100 mcg NTG (IC) given in lab by Devin Joseph via Intra-coronary. Ordered by Devin Joseph. 14:19:11 Wire removed 14:19:18 Catheter was removed 14:20:16 Case End Assessment: Final Case, HR=83 BPM, Rhythm=SR, TQLF=908/97 mmhg, Chest Pain=0, Edema=None, Color =Normal, Skin = Warm, Dry Right Pulses: Rodrigo Ped=1, Femoral=1 Left Pulses: Rodrigo Ped=1, Femoral=1 14:20:38 Lower Right Extremities: Color=Normal Lower Left Extremities: Color=Normal Neurological: State=Alert, Ox3, ARREDONDO Respiration: Resp=23 B/min, SpO2=98 % 14:20:54 Sterile dressing applied to site 14:20:57 No case complications noted. 14:21:01 In the Fem Art (right) the SHEATH, FR6.5 PRELUDE 11CM FR 6.[address] by Devin Joseph. 14:21:28 Cine recording checked. 14:21:40 HR=78 bpm, BHWD=588/76 mmhg, SpO2=93.0 %, Resp=10 B/min, Pain=0, Sharee=10, Lainez=2 14:25:33 Bedside Report will be given. 14:25:34 Implantable Device card placed in patient's chart. 14:25:36 Contrast Scanned 14:25:39 A Left Heart Cath was performed. 14:25:[facility] - Contrast Media Used In Study Contrast Total Opened (mL) Total Used (mL) Total Wasted (mL) Omnipaque 210 210 0 End Study - Maximum Contrast Load Max Contrast Load (mL) 555.6 End Study - Radiation Exposure Fluoro Time (minutes) 26.0 End Study - Patient Disposition Complications Transferred To Interventional Outcome No Telemetry Bed successful
[2017-08-10] MEDS ORDERED: MISC INFORMATION XX ONE (15:00)
[2017-08-10] MEDS ORDERED: TEMAZEPAM 15 MG CAP PO PRN (15:00)
[2017-08-10] MEDS ORDERED: SODIUM CHLORIDE 0.9% FLUSH 5 ML FLUSH IVF PRN (15:00)
[2017-08-10] MEDS ORDERED: TICAGRELOR 90 MG TAB PO ONE (15:00)
[2017-08-10] MEDS ORDERED: ATROPINE SULFATE 1 MG/ML VIAL ONE (16:06)
[2017-08-10] MEDS: SODIUM CHLOR 0.9% 1000 ML INJ 1,000 ML IV SCH (17:22)
--- NOTE | 2017-08-10 18:58 | MH ---
cc: RENEE KIM DATE OF 1970 DATE OF ADMISSION 08/10/2017 This is CHRISTINA Ruiz dictating with Dr. Kim present. CHIEF COMPLAINT Gas versus cardiac chest pain. No international travel in the last 30 days. HISTORY OF THE PRESENT ILLNESS This is a pleasant 47-year-old white male who has significant coronary artery disease which includes triple bypass back in May of 2017. He has been under increased amount of stress over the past few days especially with work, the storm, some travel over to the other side of [place] and also states that he had eaten poorly. During this time he has noted an increased amount of gas and disturbances with his gut including nausea but no vomiting. The patient was awakened this morning approximately 5 a.m. states that he had chest pain and increased amounts of gas. He did note that his chest pain was relieved when he passed his gas. Denies any shortness of breath. Denies any headache. No recent weight gain or weight loss. Noted that the pain did radiate under the left axilla briefly but now the pain is completely relieved. The patient is also hoping for a quick turnaround time with this admission and also notes that he may opt to have outpatient treatment regimen since he is feeling better. is currently with him. PAST MEDICAL HISTORY According to the patient and the records: 1. Anxiety. 2. High stress job. 3. Skin cancers. 4. Chest pain. 5. Cardiomegaly compensated. 6. Hypertension. 7. Panic attacks. 8. Myocardial infarction. 9. Hyperlipidemia. PAST SURGICAL HISTORY 1. Gallbladder. 2. Appendix. 3. Coronary stent in 2008. 4. Triple bypass in May of 2017. 5. Oral surgery, root canals. 6. Skin cancer removal. 7. Chemotherapy for skin cancers on the face. 8. Vasectomy in 2000. ALLERGIES NONE KNOWN. MEDICATIONS 1. Vitamins. 2. Metoprolol. 3. Atorvastatin. 4. Low dose aspirin. SOCIAL HISTORY Occasional social alcohol use. No tobacco. No illicit drug use. Currently he is and lives at home with his . Still works a sales high stress job. REVIEW OF SYSTEMS Gas pain, chest pain, increased stressors, eating poorly. Any other symptoms mentioned in the history of present illness otherwise negative examination. PHYSICAL EXAMINATION VITAL SIGNS: Temperature is 97.6, pulse initially on admission 106 now 69. Respiratory rate 18. Blood pressure on admission 162/98 now 120/88. O2 saturation 98% on room air. GENERAL: Well-nourished, mildly overweight white male looks to be his stated age resting in the bed. He is alert and oriented and cooperative. SKIN: [place], warm and dry. HEENT: Normocephalic, atraumatic. Pupils equal, round, reactive to light and accommodation. Mucous membranes pink and moist. NECK: Supple. CARDIOVASCULAR: S1-S2. Heart sounds are distant but no obvious murmurs, rubs, or gallops. LUNGS: Essentially clear anteriorly and posteriorly with no wheezes, rhonchi or rales. ABDOMEN: Round, soft. Does have some mild tenderness. Active bowel sounds. Nondistended. MUSCULOSKELETAL: No lower extremity edema. Moves his extremities with purpose. NEUROLOGIC: He is awake and alert. Mildly anxious. Equal hand time clerk. Speech is clear. PSYCHIATRIC: Appropriate mood and affect with some mild anxiety. LABORATORY DATA Diagnostic data, WBC count 10.8, hemoglobin 14.5, hematocrit 43, platelet count 198. Differential abnormals noted are monocyte count 8.5 and eosinophils 5. Chemistries, sodium 132, potassium 3.2, BUN 16, creatinine 0.95. GFR 85. Random glucose 106. Calcium 8.8. Magnesium 1.7. Bilirubin 0.5. AST 17, ALT 31. Alkaline phosphatase 130. Troponin negative at 0.02. PT INR is 1. IMAGING Shows chest x-ray to have mild compensated cardiomegaly. Abdominal x-ray shows negative for any acute process. ASSESSMENT AND PLAN 1. Chest pain rule out myocardial infarction and/or a cardiovascular event. First troponin is negative. 2. History of hyperlipidemia. 3. History of coronary artery disease. 4. Hypokalemia, mild. 5. Anxiety with history of panic attacks. 6. Possible gastroesophageal reflux disease. 7. Cardiomegaly which is compensated. Our plan is to admit for observation. We will monitor vital signs, labs, telemetry, place him on a healthy heart diet. Deep venous thrombosis prophylaxis with heparin. Peptic ulcer disease prophylaxis with Protonix. We will consult cardiology for their expert opinion and follow recommendations. The patient is full code, full aggressive care. Dictated by: CHRISTINA Ruiz Renee Kim MD JP/KK /9:21 AM /6:14 PM pt was seen and examined on day of admission as above with marble polisher chart was reviewed in detail cond and management was dw pt and as above dw cardiology about pt condition pt has NSTEMI dw rn dw marble polisher as above MTDD
[2017-08-10 19:37] LABS: HEMATOCRIT 42.2 % (39.0-51.0); MEAN CELL VOLUME 89.8 FL (80.0-100.0); MEAN CORPUSCULAR HEMOGLOBIN 29.9 PG (27.0-34.0); MEAN CORPUSCULAR HGB CONC 33.3 % (32.0-36.0); PLATELET COUNT 202 TH/MM3 (150-450); REVIEW FLAG FINAL; WHITE BLOOD COUNT 9.6 TH/MM3 (4.0-11.0)
[2017-08-10 19:42] LABS: APTT (PATIENT) 27.2 SEC (24.3-30.1); PROTHROMBIN TIME - PATIENT 11.4 SEC (9.8-11.6)
[2017-08-10] MEDS ORDERED: ONDANSETRON HCL 4 MG/2 ML VIAL IV PUSH PRN (20:15)
[2017-08-10] MEDS: ALPRAZolam 0.25 MG TAB PO PRN (20:22)
[2017-08-10] MEDS ORDERED: ATORVASTATIN 10 MG TAB PO SCH (21:00)
[2017-08-10] MEDS ORDERED: ATORVASTATIN 80 MG TAB PO SCH ×2 (21:00)
[2017-08-10] MEDS ORDERED: ENALAPRIL MALEATE 5 MG TAB PO SCH (21:00)
--- NOTE | 2017-08-10 23:08 | PD.CONS ---
HPI Service Consult dictated about 12 hours ago, still not transcribed nor has cath note. See reports when available. Acute NSTEMI, s/p PCI RCA. Consult Requested By Primary Care Physician Moises Edwards MD Past Family Social History Allergies: Coded Allergies: No Known Allergies (Unverified , 08/10/17) Reported Medications Reported Meds & Active Scripts Active Thera M Plus (Multivitamins/Minerals Therapeutic) 1 Tab 1 Tab PO DAILY Metoprolol Tartrate 25 Mg Tab 12.5 Mg PO Q12HR Atorvastatin (Atorvastatin Calcium) 80 Mg Tab 80 Mg PO HS Aspirin Low Strength (Aspirin) 81 Mg Chew 81 Mg PO DAILY Active Ordered Medications Current Medications Medications (Trade) Dose Ordered Sig/Josefina Route Start Time Stop Time Status Last Admin (NS Flush) 2 ml BID IV FLUSH 08/10/17 09:00 08/10/17 09:16 (NS Flush) 2 ml UNSCH PRN IV FLUSH 08/10/17 08:15 (Nitrostat Sl) 0.4 mg UNSCH PRN SL 08/10/17 08:15 (Tylenol) 500 mg Q4H PRN PO 08/10/17 08:15 (Protonix) 40 mg DAILY PO 08/10/17 09:00 08/10/17 09:16 (Nitroglycerin 2% Oint) 1 inch Q6HR TOPICAL 08/10/17 12:00 08/10/17 17:21 (Lopressor) 12.5 mg Q12HR PO 08/10/17 11:45 08/10/17 22:00 (Theragran M Tab) 1 tab DAILY PO 08/11/17 09:00 Sodium Chloride 1,000 ml @ 100 mls/hr Q10H IV 08/10/17 11:55 08/15/17 11:54 (Aspirin) 325 mg NET DEVELOPER CONTRACT PO 08/10/17 12:00 08/14/17 11:59 (Benadryl) 50 mg NET DEVELOPER [employer] PO 08/10/17 12:00 08/14/17 11:59 (Valium) 10 mg NET DEVELOPER CONTRACT PO 08/10/17 12:00 08/14/17 11:59 Sodium Chloride 1,000 ml @ 100 mls/hr Q10H IV 08/10/17 14:47 08/11/17 02:46 08/10/17 17:22 (Restoril) 15 mg HS PRN PO 08/10/17 15:00 (Aspirin Chew) 81 mg DAILY PO 08/11/17 09:00 (Brilinta) 90 mg BID PO 08/11/17 09:00 Tirofiban/Sodium Chloride 250 ml @ 18 mls/hr [id number] IV 08/10/17 14:47 08/11/17 08:46 08/10/17 14:47 (Vasotec) 5 mg BID PO 08/10/17 21:00 08/10/17 22:00 (Zofran Inj) 4 mg Q4H PRN IV PUSH 08/10/17 20:15 08/10/17 20:23 (Xanax) 0.25 mg Q6H PRN PO 08/10/17 20:15 08/10/17 20:22 (Lipitor) 80 mg HS PO 08/10/17 21:00 08/10/17 21:59 Physical Exam Vital Signs Vital Signs Date Time Temp Pulse Resp B/P (MAP) Pulse Ox O2 Delivery O2 Flow Rate FiO2 08/10/17 18:00 84 08/10/17 17:00 78 08/10/17 16:00 80 08/10/17 15:00 80 08/10/17 15:00 80 20 119/91 (100) 100 08/10/17 11:09 98 08/10/17 10:52 72 18 107/58 (74) 99 08/10/17 07:46 69 18 98 Room Air 08/10/17 07:45 70 18 120/88 (99) 99 Room Air 08/10/17 06:34 79 18 142/80 (100) 99 Room Air 08/10/17 06:09 97.6 106 16 162/98 (119) 99 Room Air Laboratory Laboratory Tests Test 08/10/17 06:30 08/10/17 09:13 08/10/17 10:30 08/10/17 18:54 White Blood Count 10.8 9.6 Red Blood Count 4.80 4.70 Hemoglobin 14.5 14.0 Hematocrit 43.0 42.2 Mean Corpuscular Volume 89.6 89.8 Mean Corpuscular Hemoglobin 30.3 29.9 Mean Corpuscular Hemoglobin Concent 33.8 33.3 Red Cell Distribution Width 13.9 14.0 Platelet Count 198 202 Mean Platelet Volume 8.2 8.2 Neutrophils (%) (Auto) 52.1 Lymphocytes (%) (Auto) 33.7 Monocytes (%) (Auto) 8.5 Eosinophils (%) (Auto) 5.0 Basophils (%) (Auto) 0.7 Neutrophils # (Auto) 5.6 Lymphocytes # (Auto) 3.6 Monocytes # (Auto) 0.9 Eosinophils # (Auto) 0.5 Basophils # (Auto) 0.1 CBC Comment DIFF FINAL Differential Comment Prothrombin Time 11.3 11.4 Prothromb Time International Ratio 1.0 1.0 Activated Partial Thromboplast Time 27.3 27.2 Blood Urea Nitrogen 16 Creatinine 0.95 Random Glucose 106 Total Protein 8.2 Albumin 3.7 Calcium Level 8.8 Magnesium Level 1.7 Alkaline Phosphatase 130 Aspartate Amino Transf (AST/SGOT) 17 Alanine Aminotransferase (ALT/SGPT) 31 Total Bilirubin 0.5 Sodium Level 132 Potassium Level 3.2 Chloride Level 98 Carbon Dioxide Level 26.5 Anion Gap 8 Estimat Glomerular Filtration Rate 85 Total Creatine Kinase 66 Troponin I LESS THAN 0.02 0.49 1.17 1.29 Result Diagram: 08/10/17 1854 08/10/17 0630 Devin Joseph MD Aug 10, 2017 23:08
[2017-08-11] VITALS (14 sets, daily range): BP systolic 95–124; BP diastolic 64–87; PULSE 66–87; RESP 20; TEMP 98.4–98.6; O2SAT 98–100
[2017-08-11] MEDS: SODIUM CHLOR 0.9% 1000 ML INJ 1,000 ML IV SCH (01:13)
[2017-08-11] MEDS: TIROFIBAN INFUSION INJ 250 ML IV SCH (01:13)
[2017-08-11 02:16] LABS: AUTOMATED NEUTROPHIL # 7.4 TH/MM3 (1.8-7.7); BASOPHIL % 0.2 % (0.0-2.0); EOSINOPHIL # 0.1 TH/MM3 (0-0.4); EOSINOPHIL % 0.7 % (0.0-4.0); HEMATOCRIT 35.9 % (39.0-51.0); HEMO FLAGS DIFF FINAL; LYMPH % 15.4 % (9.0-44.0); LYMPHOCYTE # 1.5 TH/MM3 (1.0-4.8); MEAN CORPUSCULAR HEMOGLOBIN 29.7 PG (27.0-34.0); MEAN CORPUSCULAR HGB CONC 33.4 % (32.0-36.0); MONO % 6.1 % (0.0-8.0); NEUT % 77.6 % (16.0-70.0); PLATELET COUNT 190 TH/MM3 (150-450); RED BLOOD COUNT 4.03 MIL/MM3 (4.50-5.90); RED CELL DISTRIBUTION WIDTH 13.6 % (11.6-17.2); WHITE BLOOD COUNT 9.5 TH/MM3 (4.0-11.0)
[2017-08-11 02:27] LABS: APTT (PATIENT) 27.1 SEC (24.3-30.1)
[2017-08-11 02:44] LABS: BICARBONATE 26.8 MEQ/L (21.0-32.0); HDL CHOLESTEROL 38.5 MG/DL (40.0-60.0); POTASSIUM 3.9 MEQ/L (3.5-5.1)
[2017-08-11] MEDS: ALPRAZolam 0.25 MG TAB PO PRN (04:10)
[2017-08-11] MEDS: NITROGLYCERIN 2% OINT 1 GM PACKET TOPICAL SCH ×2 (06:00)
--- NOTE | 2017-08-11 07:40 | MB ---
cc: ZEFERINO SELBY M.D. DATE OF CONSULTATION: 08/10/2017 1970 REASON FOR CONSULTATION Chest pain. HISTORY OF PRESENT ILLNESS The patient is a very pleasant 47-year-old white male, followed in our office by Dr. Rhys Rodriguez, with a history of coronary artery disease, hypertension, hyperlipidemia, who came to the hospital with complaints of abdominal and left armpit pain. At about 05:00 a.m. this morning he states his abdomen felt "gassy". He had difficulty passing gas. Shortly thereafter he developed an ache in his left armpit which lasted 20-30 minutes without associated shortness of breath, nausea or diaphoresis. Shortly after coming to the emergency department, as he was told he was not having an acute myocardial infarction, he became more relaxed and his discomforts resolved. At no point did he have any chest pain. He denies dizziness, syncope, near-syncope, palpitations, paroxysmal nocturnal dyspnea, pedal edema, palpitations. At the time of his last myocardial infarction 06/14/2017 he did have mainly a sensation of dyspnea associated with severe diaphoresis as well as left armpit pain. PAST MEDICAL HISTORY 1. Hypertension. 2. Coronary artery disease status post myocardial infarction and stent of the right coronary artery January 2009, status post inferior ST-elevation myocardial infarction 06/14/2017 at which time cardiac catheterization by Dr. Moreno Castellanos showed 70% ostial left main (with intravascular ultrasound imaging showing 4.1 mm lumen area), 50% proximal LAD, 30% proximal left circumflex, 70% mid right coronary artery disease, 80-90% distal right coronary stenosis, 99% posterior descending artery lesion. He underwent bypass surgery 06/16/17 with a left internal mammary artery to the LAD, vein graft to the obtuse marginal, vein graft to the posterior descending artery. 3. Gastroesophageal reflux disease. 4. Hyperlipidemia. PAST SURGICAL HISTORY 1. Cholecystectomy. 2. Appendectomy. 3. Coronary artery bypass grafting. MEDICATIONS Cardiac medications at home: 1. Aspirin 81 mg daily. 2. Atorvastatin 80 mg q.h.s. 3. Metoprolol tartrate 12.5 mg q.12 hours. ALLERGIES NO KNOWN DRUG ALLERGIES. FAMILY HISTORY Noncontributory. SOCIAL HISTORY The patient denies any history of alcohol or tobacco abuse. REVIEW OF SYSTEMS As in the history of present illness, otherwise negative or noncontributory. He also denies headache, abdominal pain, melena, bright red blood per rectum, cough, fevers. PHYSICAL EXAMINATION VITAL SIGNS: Blood pressure 120/88 with a pulse of 69, respirations 18. GENERAL: He is a well-developed, well-nourished white male, in no acute distress. HEENT: Jugular venous pressure is normal. Carotid pulses are 2+ bilaterally and without bruits. CHEST: Examination of the chest reveals unlabored respiratory effort with clear lung dozier. CARDIAC: On cardiac examination he has a regular rhythm and rate without S3-S4 or murmur. ABDOMEN: On abdominal examination he has a soft, obese, nontender abdomen. Bowel sounds are present. There is no definite hepatosplenomegaly. EXTREMITIES: Examination of the extremities reveals no clubbing, cyanosis or edema. Peripheral pulses are normal throughout. EKG Shows sinus rhythm, inferior infarct, age undetermined. LABORATORY DATA Laboratory data includes potassium 3.2, BUN 16, creatinine 0.95, negative cardiac enzymes, normal CBC. IMAGING STUDIES Chest x-ray shows no acute disease. IMPRESSION Overall atypical symptoms for myocardial ischemia in this 47-year-old white male with a history of coronary artery disease status post bypass surgery 2 months ago, history of hyperlipidemia, hypertension. Most of his symptoms were abdominal bloating and "gas". EKG shows no acute ST-segment changes. Initial cardiac enzymes are negative for myocardial infarction. Overall, I doubt he has developed significant obstruction of one of his bypass grafts. On the other hand, the left armpit pain he experienced this morning is similar to the pain he had at the time of his STEMI 2 months ago. RECOMMENDATIONS 1. He is cleared for discharge as long as his second set of cardiac enzymes are negative for myocardial infarction. 2. Follow up with Dr. Rodriguez as already scheduled in 2 weeks. ADDENDUM: The patient's 2nd cardiac enzyme set is abnormal. Will recommend cardiac catheterization. MD TINO Haro/CHUCK /10:27 AM /7:22 AM BETITO
--- NOTE | 2017-08-11 08:35 | MA ---
cc: DAVION WHITMORE MD, GLENN H. M.D. DATE: 08/10/2017 1970 PROCEDURE Left heart catheterization, selective coronary and graft angiography, left ventriculography, aortic root injection, difficult angioplasty and stent of the proximal, mid, and distal right coronary artery. PROCEDURE NOTE The patient was brought to the cardiac catheterization laboratory in a fasting state after having signed informed consent. The right groin was prepped and draped as per policy and anesthetized with 1% lidocaine. Arterial access was obtained via the right femoral artery and a 6-Mexican sheath placed. Coronary arteriography was performed using 6-Mexican Tara left 5.0 and right progressive catheters. Left ventriculography was done using a standard 6-Mexican pigtail. Percutaneous coronary intervention was done as described below. The left internal mammary artery graft was engaged with the progressive right catheter. We are unable to engage any stump of the vein graft to the right coronary artery. The vein graft to the obtuse marginal was sub-selectively engaged with a left coronary bypass catheter. There were no apparent immediate complications. HEMODYNAMIC DATA Left ventricle 140 with an end-diastolic pressure of 15. Aorta 126/83 with a mean of 102. There was an approximately 10 mmHg gradient across the aortic valve on pullback of the pigtail catheter. CORONARY ARTERIOGRAPHY The left main demonstrates good contrast reflux into the aortic root. There may be up to 30% ostial stenosis. On cardiac catheterization earlier this year apparently there was felt to be significant ostial left main disease demonstrated by intravascular ultrasound imaging. The left anterior descending gives rise to a relatively small diagonal which has minimal luminal irregularities. There is diffuse disease of the proximal LAD resulting in up to 25% stenosis. Competitive flow is evident in the mid to distal LAD. There is suggestion of possibly up to 60-70% tubular stenosis of the mid-LAD. The left circumflex is a small vessel giving rise to a large obtuse marginal. There is retrograde flow into the graft to the obtuse marginal. The proximal left circumflex has up to 30-40% stenosis. The proximal obtuse marginal has up to 25% stenosis. The right coronary artery is a diffusely diseased dominant vessel with up to 60% proximal stenosis, 70-80% disease in the distal third of the midportion. There is also a stent in the mid vessel which appears to be widely patent. Distally, prior to the takeoff of the posterior descending artery, there is slightly hazy irregular up to 80% stenosis. The posterior descending artery is small in caliber and subtotally occluded at its origin. The very distal right coronary appears to have minimal luminal irregularities. GRAFT ANGIOGRAPHY The left internal mammary artery to the LAD is widely patent. The vein graft to the obtuse marginal is widely patent. Aortic root injection shows no evidence for the vein graft to the right coronary artery and it is presumed to be totally occluded at its origin. We also attempted to engage this graft with multiple attempts without success. LEFT VENTRICULOGRAPHY Contrast injection of the left ventricle reveals mild hypokinesis of the basal inferior wall. Ejection fraction is estimated at 50%. PERCUTANEOUS CORONARY INTERVENTION DESCRIPTION Aggrastat was given as per protocol. Adequate heparin was given during the procedure to achieve an ACT at 255 seconds. Using a 6-Mexican hockey-stick guiding catheter with side holes, the ostium of the right coronary artery was re-engaged. Using a 0.014 [place] guidewire the diffuse disease was crossed without difficulty and the tip of the wire positioned distally. Pre-dilation of the most distal lesion was done using a 2.25-mm Euphora balloon catheter. We were unable to wire the subtotal occlusion at the origin of the posterior descending artery. It was felt this vessel was small in caliber. Partial pre- dilation of the mid disease was also partially done using the same 2.25 mm balloon catheter. Advancement of a 2.25 mm Resolute stent to the distal lesion was not possible, unable to pass the stent through the mid vessel. Further pre-dilation of the midvessel was done using a 3.0-mm Euphora balloon catheter and then eventually a noncompliant 3.5 mm Euphora balloon catheter. At this point, as there is considerable size mismatch between the mid and distal vessel, it was decided to perform intravascular ultrasound imaging. A VeriFone intravascular ultrasound catheter was advanced distally. There is diffuse disease of the right coronary, with no normal vessel. The size of the right coronary abruptly decreases from approximately 3.5 mm to 2.25 mm distally (diameter). The midportion of the vessel is severely diseased. There is likely at least 80% area stenosis diffusely. There is a stent evident in the midportion and there is diffuse overall mild to moderate restenosis of the stent. In the very proximal right coronary there is also calcified moderate to severe disease which results in up to 70% diameter stenosis. We then were able to advance 2.25 x 14-mm Resolute stent to the most distal lesion, deployed at approximately 13-14 atmospheres for 30 seconds, using kyle wire technique after a balanced middle weight guidewire was advanced distally. At this point we were unable to advance a 3.5 x 30-mm Resolute stent to the mid right coronary. Further pre-dilation was done multiple times using 3.5 mm noncompliant Euphora balloon catheter. With difficuly we were finally able to advance the 3.5 x 30-mm Resolute stent, deployed at 9 atmospheres for 40 seconds. The most proximal disease was stented using a 3.5 x 18-mm Resolute stent which was deployed at 15-16 atmospheres for 30 seconds. Angiography at this point shows slightly sluggish flow so intracoronary nitroglycerin was administered with sikh of normal flow. Final angiography shows reduction of the relatively diffuse disease to roughly 0% residual with no definite evidence for dissection or distal embolization. There is still some flow into the posterior descending artery which is a small vessel. The patient tolerated the procedure well. He did develop left shoulder pain with balloon inflations relieved by balloon deflations as well as administration of intravenous Fentanyl and Versed. CONCLUSION 1. Moderate to severe three-vessel coronary artery disease. 2. Right dominant system. 3. Patent left internal mammary artery to the LAD, patent vein graft to the obtuse marginal, totally occluded vein graft to the posterior descending artery. 4. Low normal left ventricular systolic function with estimated ejection fraction of 50%. 5. Status post difficult angioplasty and stent of the proximal, mid, and distal right coronary artery. MD TINO Haro/CHUCK /2:29 PM /8:13 AM MTDSanti
[2017-08-11] MEDS ORDERED: MULTIVITAMINS/MINERALS THERAPEUTIC TAB PO SCH (09:00)
[2017-08-11] MEDS ORDERED: TICAGRELOR 90 MG TAB PO SCH (09:00)
[2017-08-11] MEDS ORDERED: ASPIRIN 81 MG CHEW TAB PO SCH (09:00)
[2017-08-11] MEDS: SODIUM CHLORIDE 0.9% FLUSH 10 ML FLUSH IV FLUSH SCH (09:00)
[2017-08-11] MEDS: METOPROLOL TARTRATE 25 MG TAB PO SCH (09:10)
[2017-08-11] MEDS: PANTOPRAZOLE SOD 40 MG DELAYED RELEASE TAB PO SCH (09:10)
[2017-08-11] MEDS ORDERED: ENALAPRIL MALEATE 2.5 MG TAB PO SCH (10:00)
--- NOTE | 2017-08-11 12:33 | PD.CARD.PN ---
Subjective Subjective Remarks No further left arm pit pain or left should pain. No CP, SOB, groin pain, dizziness. Slept well. Objective Medications Item Value Date Time Enalapril Maleate 2.5 mg 08/11/17 1000 (Vasotec) DAILY/PO Aspirin 81 mg 08/11/17 0900 (Aspirin Chew) DAILY/PO 08/11/17 0909 Ticagrelor 90 mg 08/11/17 0900 (Brilinta) BID/PO 08/11/17 0910 Atorvastatin 80 mg 08/10/17 2100 Calcium HS/PO 08/10/17 2159 (Lipitor) Metoprolol 12.5 mg 08/10/17 1145 Tartrate Q12HR/PO 08/11/17 0910 (Lopressor) Vital Signs / I&O Vital Signs Date Time Temp Pulse Resp B/P (MAP) Pulse Ox O2 Delivery O2 Flow Rate FiO2 08/11/17 10:00 70 08/11/17 09:46 98 08/11/17 09:00 72 08/11/17 08:00 70 08/11/17 07:50 66 08/11/17 07:02 70 20 96/66 (76) 98 08/11/17 06:00 87 08/11/17 05:00 84 08/11/17 04:00 98.4 76 20 95/68 (77) 100 08/11/17 04:00 82 08/11/17 00:00 98.6 76 20 106/64 (78) 100 08/10/17 20:00 98.6 67 22 125/60 (81) 100 08/10/17 18:00 84 08/10/17 17:00 78 08/10/17 16:00 80 08/10/17 15:00 80 08/10/17 15:00 80 20 119/91 (100) 100 I/O 08/10/17 08/10/17 08/10/17 08/11/17 08/11/17 08/11/17 06:59 14:59 22:59 06:59 14:59 22:59 Intake Total 900 ml 480 ml Output Total 700 ml 250 ml Balance 200 ml 230 ml Intake Oral 580 ml 480 ml IV Total 320 ml Output Urine Total 700 ml 250 ml Physical Exam GENERAL: Well developed, well nourished. No acute distress. HEENT: Jugular venous pressure is normal. CHEST: Lungs clear to auscultation bilaterally. Unlabored respiratory effort. CARDIAC: Regular rate and rhythm without S3, S4, or murmur. ABDOMEN: Soft, nontender, no hepatosplenomegaly. Bowel sounds present. EXTREMITIES: No clubbing, cyanosis, or edema. Right groin nontender, no hematoma. Laboratory Laboratory Tests Test 08/10/17 18:54 08/11/17 01:44 White Blood Count 9.6 TH/MM3 9.5 TH/MM3 Red Blood Count 4.70 MIL/MM3 4.03 MIL/MM3 Hemoglobin 14.0 GM/DL 12.0 GM/DL Hematocrit 42.2 % 35.9 % Mean Corpuscular Volume 89.8 FL 89.0 FL Mean Corpuscular Hemoglobin 29.9 PG 29.7 PG Mean Corpuscular Hemoglobin Concent 33.3 % 33.4 % Red Cell Distribution Width 14.0 % 13.6 % Platelet Count 202 TH/MM3 190 TH/MM3 Mean Platelet Volume 8.2 FL 7.7 FL Prothrombin Time 11.4 SEC Prothromb Time International Ratio 1.0 RATIO Activated Partial Thromboplast Time 27.2 SEC 27.1 SEC Troponin I 1.29 NG/ML Neutrophils (%) (Auto) 77.6 % Lymphocytes (%) (Auto) 15.4 % Monocytes (%) (Auto) 6.1 % Eosinophils (%) (Auto) 0.7 % Basophils (%) (Auto) 0.2 % Neutrophils # (Auto) 7.4 TH/MM3 Lymphocytes # (Auto) 1.5 TH/MM3 Monocytes # (Auto) 0.6 TH/MM3 Eosinophils # (Auto) 0.1 TH/MM3 Basophils # (Auto) 0.0 TH/MM3 CBC Comment DIFF FINAL Differential Comment Blood Urea Nitrogen 10 MG/DL Creatinine 0.72 MG/DL Random Glucose 111 MG/DL Calcium Level 8.2 MG/DL Sodium Level 140 MEQ/L Potassium Level 3.9 MEQ/L Chloride Level 106 MEQ/L Carbon Dioxide Level 26.8 MEQ/L Anion Gap 7 MEQ/L Estimat Glomerular Filtration Rate 117 ML/MIN Total Creatine Kinase 223 U/L Triglycerides Level 218 MG/DL Cholesterol Level 112 MG/DL LDL Cholesterol 30 MG/DL HDL Cholesterol 38.5 MG/DL Cholesterol/HDL Ratio 2.90 RATIO Assessment and Plan Problem List: (1) CAD (coronary artery disease) ICD Codes: I25.10 - Atherosclerotic heart disease of [place] coronary artery without angina pectoris Status: Acute Plan: Stable s/p NSTEMI, PCI with stent x 3 of the RCA. No further angina. AM labs OK. Groin stable. Patient with "reaction" to Lisinopril in the past. His BP is also in low normal range. REC hold off on TYLER-I, continue metoprolol/aspirin/Brilinta OK to discharge home after dinner today if ambulating halls without difficulty f/u already scheduled with Dr. Rhys Rodriguez in 2 weeks in [place] office (2) Hypertension ICD Codes: I10 - Essential (primary) hypertension Status: Chronic Plan: Normotensive. Continue beta vida. Will hold off on TYLER-I for now with relatively low BP's. (3) Hyperlipidemia ICD Codes: E78.5 - Hyperlipidemia, unspecified Status: Chronic Plan: Acceptable lipid profile on high dose atorvastatin. Rec continue same. Code Status full code Discussed Condition With and patient Problem Qualifiers (1) CAD (coronary artery disease): Qualified Codes: I25.110 - Atherosclerotic heart disease of [place] coronary artery with unstable angina pectoris (2) Hypertension: Qualified Codes: I10 - Essential (primary) hypertension (3) Hyperlipidemia: Qualified Codes: E78.2 - Mixed hyperlipidemia Devin Joseph MD Aug 11, 2017 12:33
--- NOTE | 2017-08-11 15:04 | HHI.PR ---
Subjective Remarks Resting in the bed eyes closed attempting to doze Responds readily to verbal stimuli States he "feels bad" after taking Vasotec Symptoms very vague Eyes any chest pain (Clarissa Giron) Objective Objective Results - Vital Signs Date Time Temp Pulse Resp B/P (MAP) Pulse Ox O2 Delivery O2 Flow Rate FiO2 08/11/17 13:07 76 08/11/17 12:00 74 20 121/87 (98) 100 08/11/17 12:00 74 08/11/17 11:00 76 08/11/17 10:00 70 08/11/17 09:46 98 08/11/17 09:00 72 08/11/17 08:00 70 08/11/17 07:50 66 08/11/17 07:02 70 20 96/66 (76) 98 08/11/17 06:00 87 08/11/17 05:00 84 08/11/17 04:00 98.4 76 20 95/68 (77) 100 08/11/17 04:00 82 08/11/17 00:00 98.6 76 20 106/64 (78) 100 08/10/17 20:00 98.6 67 22 125/60 (81) 100 08/10/17 18:00 84 08/10/17 17:00 78 08/10/17 16:00 80 08/10/17 15:00 80 08/10/17 15:00 80 20 119/91 (100) 100 I/O 08/10/17 08/10/17 08/10/17 08/11/17 08/11/17 08/11/17 07:00 15:00 23:00 07:00 15:00 23:00 Intake Total 900 ml 480 ml Output Total 700 ml 250 ml Balance 200 ml 230 ml Intake Oral 580 ml 480 ml IV Total 320 ml Output Urine Total 700 ml 250 ml (Clarissa Giron) Result Diagram: 08/11/1714308/11/17143 ROS General: Other (10 point ROS done positives noted) Cardiac: Other (vague I don't feel good symptoms with Vasotec) (Clarissa Giron) Physical Exam Physical Exam PHYSICAL EXAMINATION GENERAL: This is a well-developed, well-nourished male resting in the bed. She has been up in [place] ambulatory HEAD: Normocephalic Facial features appear symmetric. OROPHARYNGEAL: Oropharynx clear NECK: Supple. Trachea midline without deviation. CARDIAC: Regular rhythm, regular rate, S1 and S2 are heard. LUNGS: Clear to auscultation bilaterally. No shortness of breath ABDOMEN: Soft, nontender, no organomegaly or masses. Bowel sounds are heard in all four quadrants. No rebound. No guarding. EXTREMITIES: no edema. Pulses equal bilateral. NEUROLOGICAL: Patient mood and affect anxious SKIN:Warm and moist (Clarissa Giron) A/P Assessment and Plan 1. Chest pain rule out myocardial infarction and/or a cardiovascular event. First troponin is negative. 2. History of hyperlipidemia. 3. History of coronary artery disease. 4. Hypokalemia, mild. 5. Anxiety with history of panic attacks. 6. Possible gastroesophageal reflux disease. 7. Cardiomegaly which is compensated. Vital signs reviewed patient is afebrile, BP normal trends Labs reviewed, anemia mild hemoglobin 12, no acute bleed noted Non-STEMI, Patient came in with rule out [place] second set of enzyme positive, cardiology consult done, patient taken to [facility] on 08-10, 3 stents done. Patient had recent CABG in May 2017. Currently patient has been ambulating in the [place] several times, if he has no chest pain he can go home after in her tonight. Patient complaining of vague symptoms when taking Vasotec. States the medicine makes him feel bad, had issues in the past with lisinopril. Dr. Rodriguez's is being called for any changes in his medical management. Hyperlipidemia, medical management, encourage cardiac nutrition low-fat, with exercise program, and stress relievers Hypokalemia. Resolved Cardiomegaly compensated Denies any shortness of breath Panic attacks, encourage patient to deep breathe, medical management as well as supportive care. State last night's Vasotec initiated a panic attack. Discussed with patient and his Discussed with nurse Discussed with Dr. Kim, seen on his behalf Discharge planning after dinner tonight if patient continues to be chest pain- free. (Clarissa Giron) Assessment and Plan pt seen and examined as above face to face time spent with pt labs reviewed meds reveiwed dw pt and at bedside about dc planning dw cardiology dw follow up manager about plan of care dc home today to follow pcp and cardiology (Thai Kim MD) Clarissa Giron Aug 11, 2017 15:04 Thai Kim MD Aug 11, 2017 15:55
--- NOTE | 2017-08-11 15:55 | HHI.DS ---
Discharge Summary Admission Date Aug 10, 2017 at 11:33 Discharge Date: Aug 11, 2017 Admitting Diagnosis chest pain Brief History Pleasant 47-year-old white male who had significant coronary artery disease which includes triple bypass back in May of 2017. He had been under increased amount of stress over the past few days especially with work, the storm, some travel over to the other side of [place] and also stated that he had eaten poorly. During this time he had noted an increased amount of gas and disturbances with his gut including nausea but no vomiting. The patient was awakened this morning approximately 5 a.m. stated that he had chest pain and increased amounts of gas. He did note that his chest pain was relieved when he passed his gas. Denied any shortness of breath. Denied any headache. No recent weight gain or weight loss. Noted that the pain did radiate under the left axilla briefly but now the pain is completely relieved. The patient was also hoping for a quick turnaround time with this admission and also noted that he may opt to have outpatient treatment regimen since he was feeling better. CBC/BMP: 08/11/17 0144 08/11/17 0144 Significant Findings Laboratory Tests Test 08/10/17 06:30 08/10/17 09:13 08/10/17 10:30 08/10/17 18:54 Monocytes (%) (Auto) 8.5 % (0.0-8.0) Eosinophils (%) (Auto) 5.0 % (0.0-4.0) Eosinophils # (Auto) 0.5 TH/MM3 (0-0.4) Alkaline Phosphatase 130 U/L (45-117) Sodium Level 132 MEQ/L (136-145) Potassium Level 3.2 MEQ/L (3.5-5.1) Estimat Glomerular Filtration Rate 85 ML/MIN (>89) Troponin I LESS THAN 0.02 NG/ML 0.49 NG/ML (0.02-0.05) 1.17 NG/ML (0.02-0.05) 1.29 NG/ML (0.02-0.05) Test 08/11/17 01:44 Red Blood Count 4.03 MIL/MM3 (4.50-5.90) Hemoglobin 12.0 GM/DL (13.0-17.0) Hematocrit 35.9 % (39.0-51.0) Neutrophils (%) (Auto) 77.6 % (16.0-70.0) Random Glucose 111 MG/DL (74-106) Calcium Level 8.2 MG/DL (8.5-10.1) Triglycerides Level 218 MG/DL (42-150) Cholesterol Level 112 MG/DL (120-200) HDL Cholesterol 38.5 MG/DL (40.0-60.0) Imaging Last Impressions Chest X-Ray 08/10/17 0623 Signed Impressions: Service Date/Time: Thursday, August 10, 2017 06:51 - CONCLUSION: Mild compensated cardiomegaly, history of bypass. Rony Garcia MD FACR Abdomen X-Ray 08/10/17 0000 Signed Impressions: Service Date/Time: Thursday, August 10, 2017 06:52 - CONCLUSION: Negative for an acute process. oRny Garcia MD FACR PE at Discharge GENERAL: This is a well-developed, well-nourished male resting in the bed. She has been up in [place] ambulatory HEAD: Normocephalic Facial features appear symmetric. OROPHARYNGEAL: Oropharynx clear NECK: Supple. Trachea midline without deviation. CARDIAC: Regular rhythm, regular rate, S1 and S2 are heard. LUNGS: Clear to auscultation bilaterally. No shortness of breath ABDOMEN: Soft, nontender, no organomegaly or masses. Bowel sounds are heard in all four quadrants. No rebound. No guarding. EXTREMITIES: no edema. Pulses equal bilateral. NEUROLOGICAL: Patient mood and affect anxious SKIN:Warm and moist Hospital Course These are the diagnoses that were used to take care of this patient during this brief stay. Consultations were with cardiology Dr. Golden 1. Chest pain rule out myocardial infarction and/or a cardiovascular event. First troponin is negative. 2. History of hyperlipidemia. 3. History of coronary artery disease. 4. Hypokalemia, mild. 5. Anxiety with history of panic attacks. 6. Possible gastroesophageal reflux disease. 7. Cardiomegaly which is compensated. Vital signs reviewed patient is afebrile, BP normal trends day of discharge. Her vital signs were monitored every 4 and as needed Labs reviewed, anemia mild hemoglobin 12, no acute bleed noted Non-STEMI, Patient came in with rule out [place] second set of enzyme positive, cardiology consult done, patient taken to [facility] on 08-10, 3 stents done. Patient had recent CABG in May 2017. Currently patient has been ambulating in the [place] several times, if he has no chest pain he can go home after in her tonight. Patient complaining of vague symptoms when taking Vasotec. States the medicine makes him feel bad, had issues in the past with lisinopril. Dr. Rodriguez's is being called for any changes in his medical management. Hyperlipidemia, medical management, encourage cardiac nutrition low-fat, with exercise program, and stress relievers Hypokalemia. Resolved Cardiomegaly compensated Denies any shortness of breath Panic attacks, encourage patient to deep breathe, medical management as well as supportive care. State last night's Vasotec initiated a panic attack. If patient remains stable without chest pain after supper he is to discharge home with in follow-up as outpatient. Medical management including his Vasotec was discussed with Dr. Kim as well as cardiology. Changes were made to dose medications Pt Condition on Discharge: Stable Discharge Disposition: Discharge Home Clarissa Giron Aug 11, 2017 15:55
[2017-08-11] MEDS ORDERED: BRIL90TA PO (16:10)
--- NOTE | 2017-08-11 21:37 | EKG ---
Date Performed: 08/10/2017 Time Performed: 18:38:44 PTAGE: 47 years EKG: Sinus rhythm Leftward axis Inferior infarct - age undetermined Possible anterior infarct - age undetermined Abnor mal ECG PREVIOUS TRACING : 08/10/2017 15.41 Compared to prior tracing no significant change DOCTOR: Catherine Kapoor Interpretating Date/Time 08/11/2017 21:36:59
--- NOTE | 2017-08-11 21:47 | EKG ---
Date Performed: 08/10/2017 Time Performed: 15:41:52 PTAGE: 47 years EKG: Sinus rhythm Inferior infarct - age undetermined Abnormal ECG PREVIOUS TRACING : 08/10/2017 09.31 Compared to prior tracing no significant change DOCTOR: Catherine Kapoor Interpretating Date/Time 08/11/2017 21:46:35
--- NOTE | 2017-08-11 22:02 | EKG ---
Date Performed: 08/10/2017 Time Performed: 09:31:50 PTAGE: 47 years EKG: Sinus rhythm INFERIOR MYOCARDIAL INFARCTION ABNORMAL ECG PREVIOUS TRACING : 08/10/2017 06.24 Compared to prior tracing no significant change DOCTOR: Catherine Kapoor Interpretating Date/Time 08/11/2017 22:00:56
--- NOTE | 2017-08-27 13:29 | PD.CARD.CA ---
Cardiac Catheterization Procedure Date: Aug 10, 2017 Procedure Note: CARDIAC CATHETERIZATION NOTE ADDENDUM: The lengths of the right coronary artery lesions stented were 15, 25, and 10 mm in the proximal, mid, and distal areas, respectively. ANU grade flow was present both pre and post coronary interventions on all 3 sites of the right coronary. Devin Joseph MD Aug 27, 2017 13:29
== END 2017-08-11 17:38 | disposition home or self-care (01) | DRG 247 ==
LOC: NEPC 06:08 → NEDA 08:03 → NEPFCDU 11:09 → OBSVTOIN 11:33 → HCIN 14:36
PROVIDERS: ADMIT Specialist; ATTEND Specialist
PROC: B2151ZZ Fluoroscopy of Left Heart using Low Osmolar Contrast (ICD-10-PCS; 2017-08-10)
PROC: 4A023N7 Measurement of Cardiac Sampling and Pressure, Left Heart, Percutaneous Approach (ICD-10-PCS; 2017-08-10)
PROC: B2111ZZ Fluoroscopy of Multiple Coronary Arteries using Low Osmolar Contrast (ICD-10-PCS; 2017-08-10)
PROC: 027036Z Dilation of Coronary Artery, One Artery with Three Drug-eluting Intraluminal Devices, Percutaneous Approach (ICD-10-PCS; principal; 2017-08-10 11:15)
DX: I21.4 Non-ST elevation (NSTEMI) myocardial infarction (principal); I25.810 Atherosclerosis of coronary artery bypass graft(s) without angina pectoris; I10 Essential (primary) hypertension; I25.110 Atherosclerotic heart disease of native coronary artery with unstable angina pectoris; E78.2 Mixed hyperlipidemia; Z95.1 Presence of aortocoronary bypass graft; E87.6 Hypokalemia; F41.9 Anxiety disorder, unspecified; K21.9 Gastro-esophageal reflux disease without esophagitis; I51.7 Cardiomegaly; Z85.828 Personal history of other malignant neoplasm of skin
CPT/HCPCS: 71010; 74020; 80048; 80053; 80061; 82550; 83735; 84484; 85002; 85025; 85027; 85610; 85730; 92928; 92978; 93005; 93459; 93567; 99285; C1725; C1753; C1769; C1874; C1893; J0461; J1644; J2250; J2405; J3010; J3246; J7030; Q9967